=== PATIENT | female | born 1995 | race Two or more races ===

== ENCOUNTER 2024-08-21 12:30 | Inpatient (IN) | payer MEDICAID ==
[~2024-08-21] VITALS: Ht 152.4 cm; Wt 60.0 kg
--- NOTE | 2024-08-21 12:44 | ED.PDOC ---
History of Present Illness HPI Comments 29-year-old female presents with a chief complaint of headache and back pain x 1 hour. Patient states that she is having a diffuse, 10/10 sharp headache. Patient mentions she was just at [facility] and was diagnosed with "mini strokes". Patient reports that "I had an MRI and they found mini strokes all over". Patient is inconsolable in triage and crying holding her head. Patient mentions that she was prescribed Prednisone and Aspirin after being discharged from [facility]. Time Seen by MD: 12:36 Reviewed Notes: Medications, Allergies Allergies: Coded Allergies: NO KNOWN ALLERGIES (Unverified , 08/21/24) Information Source: Patient Mode of Arrival: Ambulatory Severity: Moderate Timing: Hours Duration: Since onset Prehospital treatment: None Past Medical History PAST MEDICAL HISTORY: TIA Surgical History: Denies all surgeries [employer] CENTER [employer]CHITECT History: Denies all [employer] C[employer]CHITECT Hx Family History Family History: Reviewed,noncontributory to illness Social History Smoker: Non-Smoker Alcohol: Denies ETOH Use Drugs: Denies Drug Use Lives In: Home Constitutional: denies: chills, diaphoresis, fatigue, fever, malaise, sweats, weakness, others EENTM: denies: blurred vision, double vision, ear bleeding, ear discharge, ear drainage, ear pain, ear ringing, eye pain, eye redness, hearing loss, mouth pain, mouth swelling, nasal discharge, nose bleeding, nose congestion, nose pain, photophobia, tearing, throat pain, throat swelling, voice changes, others Respiratory: denies: cough, hemoptysis, orthopnea, SOB at rest, shortness of breath, SOB with excertion, stridor, wheezing, others Cardiovascular: denies: chest pain, dizzy spells, diaphoresis, Dyspnea on exertion, edema, irregular heart beat, left arm pain, lightheadedness, palpitations, PND, syncope, others Gastrointestinal: denies: abdomen distended, abdominal pain, blood streaked bowels, constipated, diarrhea, dysphagia, difficulty swallowing, hematemesis, melena, nausea, poor appetite, poor fluid intake, rectal bleeding, rectal pain, vomiting, others Genitourinary: denies: abnormal vagina bleeding, burning, dyspareunia, dysuria, flank pain, frequency, hematuria, incontinence, pain, , vagina discharge, urgency, others Neurological: reports: headache; denies: dizziness, fainting, left sided numbness, left sided weakness, numbness, paresthesia, pre-existing deficit, right sided numbness, right sided weakness, seizure, speech problems, tingling, tremors, weakness, others Musculoskeletal: reports: back pain; denies: gout, joint pain, joint swelling, muscle pain, muscle stiffness, neck pain, others Integumetry: denies: bruises, change in color, change in hair/nails, dryness, laceration, lesions, lumps, rash, wounds, others Allergic/Immunocompromised: denies: Difficulty Healing, Frequent Infections, Hives, Itching, others Hematologic/Lymphatic: denies: anemia, blood clots, easy bleeding, easy bruising, swollen glands, others Endocrine: denies: excessive hunger, excessive sweating, excessive thirst, excessive urination, flushing, intolerance to cold, intolerance to heat, unexplained weight gain, unexplained weight loss, others Psychiatric: denies: anxiety, bipolar disorder, depression, hopeless, panic disorder, schizophrenia, sleepless, suicidal, others All Other Systems: Reviewed and Negative Physical Exam General Appearance: No Apparent Distress, Normal HEENT: Normal ENT Inspection, Pharynx Normal, TMs Normal Neck: Full Range of Motion, Non-Tender, Normal, Normal Inspection Respiratory: Chest Non-Tender, Lungs Clear, No Accessory Muscle Use, No Respiratory Distress, Normal Breath Sounds Cardiovascular: No Edema, No JVD, No Murmur, No Gallop, Normal Peripheral Pulses, Regular Rate/Rhythm Breast Exam: Deferred Gastrointestinal: No Organomegaly, Non Tender, No Pulsatile Mass, Normal Bowel Sounds, Soft Genitalia: Deferred Pelvic: Deferred Rectal: Deferred Extremities: No calf tenderness, Normal capillary refill, Normal inspection, Normal range of motion, Non-tender, No pedal edema Musculoskeletal : Apperance: Normal Neurologic: Alert, collection correspondent II-XII nml as Tested, No Motor Deficits, Normal Affect, Normal Mood, No Sensory Deficits Cerebellar Function: Normal Reflexes: Normal Skin: Dry, Normal Color, Warm Lymphatic: No Adenopathy Was a procedure done? Was a procedure done?: No Differential Dx Considerations may include: CVA, TIA, migraine, spinal epidural abscess, viral syndrome, electrolyte abnormality X-Ray, Labs, Meds, VS Vital Signs Date Time Temp Pulse Resp B/P (MAP) Pulse Ox O2 Delivery O2 Flow Rate FiO2 08/21/24 16:00 118 08/21/24 15:46 112 27 163/101 (121) 95 08/21/24 14:50 109 22 95 Room Air* 0 21 08/21/24 14:46 105 19 119/76 (90) 96 08/21/24 13:25 96 17 158/95 (116) 96 08/21/24 13:10 91 08/21/24 12:39 68 08/21/24 12:36 98.2 70 24 186/133 (150) 100 Lab Test 08/21/24 14:32 08/21/24 13:00 Range/Units Urine Color Light-yellow Yellow Urine Clarity Clear Clear Urine pH 6.5 5.0-9.0 Urine Specific [place] 1.015 1.001-1.035 Urine Protein 1+ H Negative Urine Ketones Negative Negative Urine Blood 2+ H Negative /uL Urine Nitrite Negative Negative Urine Bilirubin Negative Negative Urine Urobilinogen Normal Negative mg/dL Urine Leukocyte Esterase Negative Negative /uL Urine RBC 49 0 - 4 /hpf Urine Microscopic WBC 4 0-5 /HPF Urine Squamous Epithelial Cells Few <5 /hpf Urine Bacteria None seen None Seen /hpf Urine Mucus Few None Seen Urine Glucose Normal Normal mg/dL Urine Opiates Screen Pos NEGATIVE Urine Fentanyl Screen Neg NEGATIVE Urine Barbiturates Screen Neg NEGATIVE Urine Phencyclidine Screen Neg NEGATIVE Urine Amphetamines Screen Neg NEGATIVE Urine Benzodiazepines Screen Neg NEGATIVE Urine Cocaine Screen Neg NEGATIVE Urine Cannabinoids Screen Pos NEGATIVE White Blood Count 17.3 H 4.4-10.8 10^3/uL Red Blood Count 4.56 4.0-5.20 10^6/uL Hemoglobin 11.7 L 12.2-16.2 g/dL Hematocrit 36.1 36.0-46.0 % Mean Corpuscular Volume 79.3 L 80.0-100.0 fL Mean Corpuscular Hemoglobin 25.6 L 28.0-32.0 pg Mean Corpuscular Hemoglobin Concent 32.3 32.0-36.0 g/dL Red Cell Distribution Width 17.9 H 11.8-14.3 % Platelet Count 547 H 140-450 10^3/uL Mean Platelet Volume 8.0 6.9-10.8 fL Neutrophils (%) (Auto) 83.2 H 37.0-80.0 % Lymphocytes (%) (Auto) 10.7 10.0-50.0 % Monocytes (%) (Auto) 6.0 0.0-12.0 % Eosinophils (%) (Auto) 0.0 0.0-7.0 % Basophils (%) (Auto) 0.1 0.0-2.0 % Neutrophils # (Auto) 14.3 H 1.6-8.6 10 ^3/uL Lymphocytes # (Auto) 1.9 0.4-5.4 10 ^3/uL Monocytes # (Auto) 1.0 0-1.3 10 ^3/uL Eosinophils # (Auto) 0 0-0.8 10 ^3/uL Basophils # (Auto) 0 0-0.2 10 ^3/uL Nucleated Red Blood Cells 0.0 % Sodium Level 136 136-145 mmol/L Potassium Level 3.5 3.5-5.1 mmol/L Chloride Level 102 98-107 mmol/L Carbon Dioxide Level 24 20-31 mmol/L Anion Gap 10 5-15 Blood Urea Nitrogen 15 9-23 mg/dL Creatinine 0.62 0.550-1.02 mg/dL Glomerular Filtration Rate Calc 123 >90 mL/min BUN/Creatinine Ratio 24.2 H 10.0-20.0 Serum Glucose 130 H 74-106 mg/dL Calcium Level 8.9 8.7-10.4 mg/dL Current Medications Medications (Trade) Dose Ordered Sig/Osiris Route Start Time Stop Time Status Last Admin Sodium Chloride 1,000 ml @ 1,000 mls/hr Q1H ONCE IV 08/21/24 12:45 08/21/24 13:44 DC 08/21/24 13:02 Metoclopramide HCl (Reglan Injection) 10 mg ONCE ONCE IV 08/21/24 12:45 08/21/24 12:46 DC 08/21/24 13:01 Acetaminophen (Tylenol Tablet) 650 mg ONCE ONCE PO 08/21/24 12:45 08/21/24 12:46 DC 08/21/24 13:01 Haloperidol Lactate (Haldol) 10 mg ONCE ONCE IM 08/21/24 12:45 08/21/24 12:46 DC 08/21/24 13:02 Ketorolac Tromethamine (Toradol Injection) 15 mg ONCE ONCE IV 08/21/24 14:00 08/21/24 14:01 DC 08/21/24 14:00 Ketamine HCl (Ketalar) 100 mg ONCE ONCE IV 08/21/24 16:00 08/21/24 16:13 DC 08/21/24 16:30 Time of 1ST Reevaluation: 13:06 Reevaluation 1ST: Unchanged Patient Education/Counseling: Diagnosis, Treatment, Prognosis Family Education/Counseling: Diagnosis, Treatment, Prognosis Departure 1 Departure Time of Disposition: 16:39 (Patient with intractable migraine concerning for status migrainous patient also with intractable back pain. We will admit patient for further workup and expert consultation) Impression: Primary Impression: Migraine with status migrainosus Qualified Codes: G43.111 - Migraine with aura, intractable, with status migrainosus Additional Impression: Lower back pain Qualified Codes: M54.50 - Low back pain, unspecified Disposition: 09 ADMITTED INPATIENT Admit to: Med Surg Condition: Serious Critical Care Note Critical Care Time?: Yes Critical care comment: Status migrainous Authorized and Performed by: Edgar Suarez MD Total critical care time: Approximately 36 minutes Due to a high probability of clinically significant, life threatening deterioration, the patient required my highest level of preparedness to int ervene emergently and I personally spent this critical care time directly and personally managing the patient. This critical care time included obtaining a history; examining the patient; pulse oximetry; ordering and review of studies; arranging urgent treatment with development of a management plan; evaluation of patient's response to treatment; frequent reassessment; and, discussions with other providers. This critical care time was performed to assess and manage the high probability of imminent, life-threatening deterioration that could result in multi-organ failure. It was exclusive of separately billable procedures and treating other patients and teaching time. Please see my other sections and the rest of the note for further information on patient assessment and treatment. Stability Stability form required: No Heart Score Heart Score: Heart Score Response (Comments) Value History N/A 0 EKG N/A 0 Age N/A 0 Risk Factors N/A 0 Troponin N/A 0 Total 0 I personally scribed for EDGAR SUAREZ MD ([email or web address]) on 08/21/24 at 12:44. E lectronically submitted by Michael Lynn ([email or web address]). EDGAR SUAREZ MD Aug 21, 2024 12:44
[2024-08-21] MEDS: METOCLOPRAMIDE HCL 5MG/ml INJ 2ml VIAL IV ONE (13:01)
[2024-08-21] MEDS: ACETAMINOPHEN 325 MG TAB PO ONE (13:01)
[2024-08-21] MEDS: SODIUM CHLORIDE 0.9% 1,000 ML IV ONE ×2 (13:02→17:59)
[2024-08-21] MEDS: HALOPERIDOL LACTATE 5 MG/ML INJ VIAL IM ONE (13:02)
--- NOTE | 2024-08-21 13:07 | DVH ---
CLINICAL INFORMATION: 29 years old, Female; sudden onset headache and migraine. TECHNIQUE: Axial imaging was obtained through the brain without contrast. Coronal and sagittal refor matted images were obtained, reviewed, and stored. Images were reviewed in brain and bone windows. A ll CT scans at this medical facility are performed using dose modulation techniques as appropriate to a performed exam including the following: Automated exposure control was utilized; adjustment of the MA and/or KV according to patient size; and use of iterative reconstruction technique. CTDIvol = 52.02 mGy DLP = 816.82 mGy-cm COMPARISON: None FINDINGS: There is no acute intracranial hemorrhage or extraaxial fluid collection. No mass effect o r midline shift. The ventricles and sulci are within normal limits in size for age. Basal cisterns a re patent. The calvarium is unremarkable. Paranasal sinuses and mastoid air cells are clear. IMPRESSION: No CT evidence of acute intracranial abnormality.
[2024-08-21 13:16] LABS: Basophils # (auto) 0 10 ^3/uL (0-0.2); Basophils % (auto) 0.1 % (0.0-2.0); Eosinophils # (auto) 0 10 ^3/uL (0-0.8); Hemoglobin 11.7 g/dL (12.2-16.2)
[2024-08-21 13:19] LABS: Hematocrit 36.1 % (36.0-46.0); Lymphocytes # (auto) 1.9 10 ^3/uL (0.4-5.4); Lymphocytes % (auto) 10.7 % (10.0-50.0); Mean Corpuscular Hemoglobin 25.6 pg (28.0-32.0); Mean Corpuscular Hgb Conc. 32.3 g/dL (32.0-36.0); Mean Corpuscular Volume 79.3 fL (80.0-100.0); Neutrophils # (auto) 14.3 10 ^3/uL (1.6-8.6); Neutrophils % (auto) 83.2 % (37.0-80.0); Platelet Count (auto) 547 10^3/uL (140-450); Red Blood Cells 4.56 10^6/uL (4.0-5.20); Red Cell Distribution Width 17.9 % (11.8-14.3); White Blood Cell 17.3 10^3/uL (4.4-10.8)
[2024-08-21 13:33] LABS: Chloride 102 mmol/L (98-107); Potassium 3.5 mmol/L (3.5-5.1); Sodium 136 mmol/L (136-145)
[2024-08-21 13:34] LABS: Anion Gap 10 (5-15); Calcium 8.9 mg/dL (8.7-10.4); Carbon Dioxide 24 mmol/L (20-31)
[2024-08-21 13:39] LABS: BUN/Creatinine Ratio 24.2 (10.0-20.0); Blood Urea Nitrogen 15 mg/dL (9-23)
[2024-08-21 13:41] LABS: Glucose 130 mg/dL (74-106)
[2024-08-21] MEDS: KETOROLAC TROMETH 30 MG/ML 1ML VIAL IV ONE (14:00)
[2024-08-21 14:50] VITALS: PULSE 109; RESP 22; O2SAT 95
[2024-08-21 14:51] LABS: Urine Bacteria None Seen /hpf (None Seen)
[2024-08-21 15:10] LABS: Urine Blood 2+ /uL (Negative); Urine Clarity Clear (Clear); Urine Color Light-Yellow (Yellow); Urine Mucus FEW (None Seen); Urine Protein, UAD 1+ (Negative); Urine Specific Gravity 1.015 (1.001-1.035); Urine Squamous Epithelial Cell FEW /hpf (<5); Urine Urobilinogen Normal (Negative); Urine WBC 4 /HPF (0-5); Urine pH 6.5 (5.0-9.0)
[2024-08-21 15:24] LABS: Amphetamine Screen, Urine Neg (NEGATIVE); Barbiturate Scree,Urine Neg (NEGATIVE); Benzodiazephine Screen, Urine Neg (NEGATIVE); Cannabinoid Screen, Urine Pos (NEGATIVE); Cocaine Screen, Urine Neg (NEGATIVE); Opiate Scree,Urine Pos (NEGATIVE); Phencyclidine Screen, Urine Neg (NEGATIVE)
[2024-08-21] MEDS: KETAMINE 50mg/ML 10ml Vial (500mg/10ml) IV ONE (16:30)
[2024-08-21] MEDS: CEFEPIME 2GM/50ML NS 50 ML IV ONE (18:24)
--- NOTE | 2024-08-21 18:24 | DVH ---
Date: 08/21/2024 06:02 PM Examination: XY KUB ABDOMEN SINGLE VIEW History: abdominal pain Comparison: None TECHNIQUE: Frontal views of the abdomen was obtained. FINDINGS: No evidence for obstruction. Patient has a moderately large stool burden.. The lung bases are unremarkable. No acute osseous abnormality identified. IMPRESSION: 1. Moderately large stool burden. No osseous abnormality
[2024-08-21 19:12] LABS: Lactic Acid w/Reflex 4.4 mmol/L (0.4-2.0)
[2024-08-21] MEDS: VANCOMYCIN 1GM/250ML KIT 200 ML IV ONE (19:26)
[2024-08-21 19:30] VITALS: PULSE 90; RESP 18; O2SAT 95
[2024-08-21] MEDS ORDERED: NITROGLYCERIN 0.4 MG SL TAB SL PRN (21:30)
[2024-08-21] MEDS ORDERED: ACETAMINOPHEN 325 MG TAB PO PRN (21:30)
[2024-08-21 21:44] LABS: Basophils % (auto) 0.2 % (0.0-2.0); Eosinophils # (auto) 0 10 ^3/uL (0-0.8); Lymphocytes # (auto) 2.8 10 ^3/uL (0.4-5.4); Neutrophils # (auto) 18.8 10 ^3/uL (1.6-8.6)
[2024-08-21 21:46] LABS: Basophils # (auto) 0.1 10 ^3/uL (0-0.2); Hematocrit 34.5 % (36.0-46.0); Hemoglobin 10.9 g/dL (12.2-16.2); Lymphocytes % (auto) 11.9 % (10.0-50.0); Mean Corpuscular Hgb Conc. 31.5 g/dL (32.0-36.0); Mean Corpuscular Volume 79.1 fL (80.0-100.0); Monocytes # (auto) 1.8 10 ^3/uL (0-1.3); Monocytes % (auto) 7.7 % (0.0-12.0); Neutrophils % (auto) 80.2 % (37.0-80.0); Platelet Count (auto) 498 10^3/uL (140-450); Red Blood Cells 4.35 10^6/uL (4.0-5.20); Red Cell Distribution Width 17.8 % (11.8-14.3); White Blood Cell 23.4 10^3/uL (4.4-10.8)
[2024-08-21] MEDS: SODIUM CHLORIDE 0.9% 1,000 ML IV SCH (22:00)
[2024-08-21 22:01] LABS: Alanine Aminotransferase 32 U/L (7-40); Albumin 3.4 g/dL (3.2-4.8); Alkaline Phosphatase 64 U/L (46-116); Anion Gap 9 (5-15); Aspartate Aminotransferase 37 U/L (13-40); BUN/Creatinine Ratio 23.4 (10.0-20.0); Blood Urea Nitrogen 15 mg/dL (9-23); Carbon Dioxide 24 mmol/L (20-31); Chloride 104 mmol/L (98-107); Magnesium 1.7 mg/dL (1.6-2.6); Potassium 3.9 mmol/L (3.5-5.1); Sodium 137 mmol/L (136-145)
[2024-08-21 22:02] LABS: Bilirubin, Total 0.3 mg/dL (0.2-1.0); Total Protein 6.8 g/dL (5.7-8.2)
[2024-08-21 22:04] LABS: Blood Alcohol < 3.0 mg/dL (<10); Creatine Kinase IFCC 233 U/L (34-145); Glucose 160 mg/dL (74-106)
[2024-08-21] MEDS: SODIUM CHLOR 0.9% PF (SALINE LOCK) 10ML VIAL/SYR IV SCH (22:05)
[2024-08-21] MEDS ORDERED: hydrALAZINE HCL 20 MG/ML VL IV PRN (23:30)
[2024-08-21] MEDS: hydrALAZINE HCL 20 MG/ML VL IV ONE (23:31)
--- NOTE | 2024-08-21 23:47 | DVHHPRES ---
History of Present Illness Resident Creating Document: LEIGHA CHOI RESIDENT History of Present Illness BEREKET RAYMUNDO is a 29 years old female with a PMH of lupus presented to the ED with the chief complaints of severe headache since today morning. Patient reported she is diagnosed with lupus in 2019, she was not on medication last year and restarted her medication in May. Last week patient went to other facility due to headache, did a MRI found it multiple mini strokes, started on aspirin, clopidogrel and Lipitor. On Wednesday patient woke up with severe back pain, unable to sit or stand which made her to visit [facility] ED MRI of the spine which found it having bulging disc or cyst and urinalysis was positive for UTI, given cephalexin. Again today moaning patient started having severe headache described as drooling sensation into the brain or skull associated with mild vomiting lightheadedness which brought her to visit ED. on my assessment patient is very drowsy, sleeping due to medication. PMH: Lupus since 2019 PSH: Denies Family history: Noncontributory Social history: Lives with grandparents. Smokes marijuana for pain management but denies alcohol and other illicit drug abuse Medications: Prednisolone, hydrocodone, aspirin, clopidogrel, pantoprazole, atorvastatin Allergies: No known allergies Review of Systems Constitutional: Yes: Weakness, Malaise, Other (Headache) Eyes: No: Pain, Vision change, Conjunctivae inflammation, Eyelid inflammation, Other, Redness ENT: No: Ear pain, Ear discharge, Nose pain, Nose discharge, Nose congestion, Mouth pain, Mouth swelling, Throat pain, Throat swelling, Other Respiratory: No: Cough, Dry, Shortness of breath, SOB with excertion, Wheezing, Hemoptysis, Pleuritic Pain, Sputum, Wheezing, Other Cardiovascular: Lt Headedness Gastrointestinal: No: Nausea, Vomiting, Abdominal Pain, Diarrhea, Constipation, Melena, Hematochezia, Other Genitourinary: No Dysuria, No Frequency, No Incontinence, No Hematuria, No Retention, No Other Musculoskeletal: back pain Neurological: No: Weakness, Numbness, Incoordination, Change in speech, Confusion, Seizures, Other Allergies: Coded Allergies: NO KNOWN ALLERGIES (Unverified , 08/21/24) Medications Current Medications Medications Dose Ordered Sig/Osiris Route Start Time Stop Time Status Last Admin Dose Admin Sodium Chloride 10 ml Q8HR IV 08/21/24 22:00 08/21/24 22:05 10 ML Sodium Chloride 1,000 ml @ 120 mls/hr Q8H20M IV 08/21/24 21:30 08/21/24 22:00 120 MLS/HR Enoxaparin Sodium 40 mg DAILY SC 08/22/24 10:00 Acetaminophen 650 mg Q6HP PRN PO 08/21/24 21:30 Nitroglycerin 0.4 mg Q5MINP PRN SL 08/21/24 21:30 Morphine Sulfate 2 mg Q30M PRN IV 08/21/24 21:30 Hydralazine HCl 10 mg Q6HP PRN IV 08/21/24 23:30 UNV Acetaminophen/ Hydrocodone Bitart 1 tab Q4HPRN PRN PO 08/21/24 23:45 UNV Ceftriaxone Sodium 50 ml @ 100 mls/hr DAILY@09 IV 08/22/24 09:00 UNV Exam Vital Signs Vital Signs Date Time Temp Pulse Resp B/P (MAP) Pulse Ox O2 Delivery O2 Flow Rate FiO2 08/21/24 23:31 158/93 08/21/24 22:00 94 24 94 08/21/24 19:30 Nasal Cannula* 2 28 08/21/24 19:30 98.6 98.6 Exam Pt is lying on bed General Appearance: Alert, Oriented X3, Cooperative, severe distress HEENT: Atraumatic, Mucous membranes moist/pink Respiratory: Clear to auscultation, Normal air movement, No added sounds Cardiovascular: Regular rate, Normal S1, Normal S2, No murmurs Abdominal: Active bowel sounds, Soft, no distention, no tenderness Extremities: No edema, Normal pulses, No tenderness/swelling MSK: Spinal tenderness, hand joints redness Skin: No Significant rash, except past surgical scars Neuro: Normal speech, sensorimotor deficits none Psych/Mental Status: Mental status NL, Mood NL Nurse was there as sharperone during examination Labs/Xrays Labs Test 08/21/24 22:50 08/21/24 21:29 08/21/24 19:44 08/21/24 14:32 Range/Units White Blood Count 23.4 #H 4.4-10.8 10^3/uL Red Blood Count 4.35 4.0-5.20 10^6/uL Hemoglobin 10.9 L 12.2-16.2 g/dL Hematocrit 34.5 L 36.0-46.0 % Mean Corpuscular Volume 79.1 L 80.0-100.0 fL Mean Corpuscular Hemoglobin 25.0 L 28.0-32.0 pg Mean Corpuscular Hemoglobin Concent 31.5 L 32.0-36.0 g/dL Red Cell Distribution Width 17.8 H 11.8-14.3 % Platelet Count 498 H 140-450 10^3/uL Mean Platelet Volume 7.9 6.9-10.8 fL Neutrophils (%) (Auto) 80.2 H 37.0-80.0 % Lymphocytes (%) (Auto) 11.9 10.0-50.0 % Monocytes (%) (Auto) 7.7 0.0-12.0 % Eosinophils (%) (Auto) 0.0 0.0-7.0 % Basophils (%) (Auto) 0.2 0.0-2.0 % Neutrophils # (Auto) 18.8 H 1.6-8.6 10 ^3/uL Lymphocytes # (Auto) 2.8 0.4-5.4 10 ^3/uL Monocytes # (Auto) 1.8 H 0-1.3 10 ^3/uL Eosinophils # (Auto) 0 0-0.8 10 ^3/uL Basophils # (Auto) 0.1 0-0.2 10 ^3/uL Nucleated Red Blood Cells 0.0 % Sodium Level 137 136-145 mmol/L Potassium Level 3.9 3.5-5.1 mmol/L Chloride Level 104 98-107 mmol/L Carbon Dioxide Level 24 20-31 mmol/L Anion Gap 9 5-15 Blood Urea Nitrogen 15 9-23 mg/dL Creatinine 0.64 0.550-1.02 mg/dL Glomerular Filtration Rate Calc 122 >90 mL/min BUN/Creatinine Ratio 23.4 H 10.0-20.0 Serum Glucose 160 H 74-106 mg/dL Calcium Level 8.0 L 8.7-10.4 mg/dL Magnesium Level 1.7 1.6-2.6 mg/dL Total Bilirubin 0.3 0.2-1.0 mg/dL Aspartate Amino Transferase (AST) 37 13-40 U/L Alanine Aminotransferase (ALT) 32 7-40 U/L Alkaline Phosphatase 64 46-116 U/L Ammonia 15 11-32 umol/L Creatine Kinase 233 H 34-145 U/L C-Reactive Protein High Sensitivity 0.68 <1.0 mg/dL Total Protein 6.8 5.7-8.2 g/dL Albumin 3.4 3.2-4.8 g/dL Thyroid Stimulating Hormone (TSH) 0.75 0.55-4.78 uIU/mL Plasma/Serum Blood Alcohol < 3.0 <10 mg/dL Lactic Acid Level 4.5 *H 0.4-2.0 mmol/L Urine Color Light-yellow Yellow Urine Clarity Clear Clear Urine pH 6.5 5.0-9.0 Urine Specific [place] 1.015 1.001-1.035 Urine Protein 1+ H Negative Urine Ketones Negative Negative Urine Blood 2+ H Negative /uL Urine Nitrite Negative Negative Urine Bilirubin Negative Negative Urine Urobilinogen Normal Negative mg/dL Urine Leukocyte Esterase Negative Negative /uL Urine RBC 49 0 - 4 /hpf Urine Microscopic WBC 4 0-5 /HPF Urine Squamous Epithelial Cells Few <5 /hpf Urine Bacteria None seen None Seen /hpf Urine Mucus Few None Seen Urine Glucose Normal Normal mg/dL Urine Opiates Screen Pos NEGATIVE Urine Fentanyl Screen Neg NEGATIVE Urine Barbiturates Screen Neg NEGATIVE Urine Phencyclidine Screen Neg NEGATIVE Urine Amphetamines Screen Neg NEGATIVE Urine Benzodiazepines Screen Neg NEGATIVE Urine Cocaine Screen Neg NEGATIVE Urine Cannabinoids Screen Pos NEGATIVE Test 08/21/24 13:00 Range/Units Assessment/Plan Assessment/Plan # Sepsis likely due to UTI vs ? meningitis -ordered pancultures -monitor lab -currently giving Rocephin 2 g q.12, ampicillin 2gm q4 h and vancomycin per pharmacy -Dexamethasone 10 mg iv q6 # R/o Meningitis -performed lumbar puncture -fluid sent to cell count and culture -currently giving Rocephin 2 g q.12, ampicillin 2gm q4 h and vancomycin per pharmacy -Dexamethasone 10 mg iv q6 -Consulted neuro # hypertensive emergency vs urgency # rule out acute CVA -head CT showed no acute changes -closely monitoring blood pressure -hydralazine 10 mg -ordered brain MRI -consulted neuro # lupus likely exacerbation - On hydroxychloroquine # marijuana abuse disorder -counseled regarding cessation for more than 17 minutes # likely bulging spinal disc unspecified location -pain management # acute complicated UTI -Rocephin -ordered pancultures # questionable rhabdomyolysis -monitoring lab -currently giving IVF -monitor renal function closely PUD PPX: Protonix VTE PPX: Lovenox Diet: Salt restricted diet Goals of care discussed with the patient for more than 29 minutes: Full code st atus Case discussed with Dr. Blankenship, patient and nurse. Plan discussed with: Patient, Other (Boyfriend) My Orders Orders - LEIGHA CHOI RESIDENT Procedure Category Date Status Time Admit ADMIT 08/21/24 Transmitted 21:19 Allergies SHRUTHI 08/21/24 In Process 21:19 Code Status CODE 08/21/24 Transmitted 21:19 Sodium Chloride Lock PHA 08/21/24 In Process (Saline Lock Ns) 22:00 Sodium Chloride 0.9% PHA 08/21/24 In Process 21:30 Oxygen Per Hour RT 08/21/24 Transmitted 21:19 Enoxaparin Sodium PHA 08/22/24 In Process (Lovenox) 10:00 Complete Blood Count LAB 08/22/24 Verified 04:00 Comprehensive LAB 08/22/24 Verified Metabolic Panel 04:00 Npo (Nothing By DIET 08/22/24 Transmitted Mouth) Diet Breakfast Condition: Fair SHRUTHI 08/21/24 In Process 21:19 Acetaminophen Tablet PHA 08/21/24 In Process (Tylenol Tablet) 21:30 Nitroglycerin PHA 08/21/24 In Process Sublingual (Ntrostat 21:30 Morphine Sulfate PHA 08/21/24 In Process Injection 21:30 Oxygen By Nasal RT 08/21/24 Transmitted Cannula 21:19 Stat Ekg For Chest SHRUTHI 08/21/24 In Process Pain 21:19 Notify Of Changes SHRUTHI 08/21/24 In Process From Base 21:19 Forge Hand For SHRUTHI 08/21/24 In Process 24 Hours 21:19 Emergency Dysrhythmia SHRUTHI 08/21/24 In Process Protocol 21:19 Rhythm Strips Once SHRUTHI 08/21/24 In Process Every Shift 21:19 Covid19 Antigen Carmela LAB 08/21/24 In Process Rapid Influenza A&B LAB 08/21/24 In Process 21:21 Urine Bacterial TERA 08/21/24 In Process Culture 21:24 Respiratory Culture TERA 08/21/24 Logged W/ Gs 21:24 Erythrocyte LAB 08/21/24 In Process Sedimentation Rate 22:45 Hydralazine Injection PHA 08/21/24 Logged (Apresoline Inject 23:30 Hydrocodone-Acet PHA 08/21/24 Logged 5/325mg Tab ([place] 23:45 Ceftriaxone 1gm/50ml PHA 08/22/24 Logged D5w (Rocephin) 09:00 2 Gm Sodium Diet DIET 08/22/24 Verified Breakfast Date of Service: Aug 21, 2024 Billing Provider: LATESHA BLANKENSHIP MD Common Visit Codes: [id number] INP/OBS CARE (HIGH) LEIGHA CHOI RESIDENT Aug 21, 2024 23:47 LATESHA BLANKENSHIP MD Aug 22, 2024 19:56
[2024-08-21 23:59] LABS: Rapid Influenza A Negative (Negative); Rapid Influenza B Negative (Negative)
[2024-08-21] MEDS: MORPHINE SULFATE INJ 2 MG/ml SYRG IV PRN (23:59)
[2024-08-22] LABS: COVID19 ANTIGEN SOFIA FIA NEGATIVE (NEGATIVE)
[2024-08-22 00:03] LABS: Erythrocyte Sedimentation Rate 24 mm/hr (0-20)
[2024-08-22] MEDS: LABETALOL HCL 20 MG/4 ML VL IV ONE (00:59)
[2024-08-22 02:41] LABS: Hemoglobin 10.2 g/dL (12.2-16.2); Mean Corpuscular Hemoglobin 25.2 pg (28.0-32.0); Mean Corpuscular Volume 78.6 fL (80.0-100.0); Platelet Count (auto) 571 10^3/uL (140-450); Red Blood Cells 4.06 10^6/uL (4.0-5.20); White Blood Cell 26.7 10^3/uL (4.4-10.8)
[2024-08-22 02:42] LABS: Basophils % (manual) 0 (0.0-2.0); Blast Cells 0; Eosinophils % (manual) 0 (0-7); Metamyelocytes % 0; Myelocytes % 0; Promyelocytes % 0; Reactive Lymphocytes 0
[2024-08-22 02:55] LABS: INR 1.05 (0.9-1.15); Partial Thromboplastin Time 25.5 SEC (24.5-34.5); Prothrombin Time 11.1 sec (9.3-11.8)
[2024-08-22 03:15] LABS: Alanine Aminotransferase 29 U/L (7-40); Alkaline Phosphatase 63 U/L (46-116); Anion Gap 12 (5-15); Aspartate Aminotransferase 34 U/L (13-40); BUN/Creatinine Ratio 23.3 (10.0-20.0); Blood Urea Nitrogen 14 mg/dL (9-23); Carbon Dioxide 21 mmol/L (20-31); Chloride 104 mmol/L (98-107); Potassium 3.6 mmol/L (3.5-5.1); Sodium 137 mmol/L (136-145)
[2024-08-22 03:16] LABS: Albumin 3.4 g/dL (3.2-4.8); Bilirubin, Total 0.3 mg/dL (0.2-1.0); Calcium 7.8 mg/dL (8.7-10.4); Glucose 163 mg/dL (74-106); Total Protein 6.7 g/dL (5.7-8.2)
[2024-08-22 03:25] LABS: CRP High Sensitivity 1.73 mg/dL (<1.0)
[2024-08-22 03:30] LABS: Band Neutrophils % (manual) 1; Lymphocytes % (manual) 13 (10.0-50.0); Monocytes % (manual) 8 (0-12); Platelet Estimate Increased
[2024-08-22 03:31] LABS: Large Platelets FEW
[2024-08-22 03:39] LABS: Erythrocyte Sedimentation Rate 25 mm/hr (0-20)
[2024-08-22] MEDS ORDERED: VANCOMYCIN PER PHARMACY 0 MG IV SCH (05:15)
[2024-08-22] MEDS: cefTRIAXone 2GM/50ML D5W 50 ML IV SCH (05:21)
[2024-08-22] MEDS: DexAMETHasone SOD PHOS 10MG/1ML VIAL INJ IV SCH (06:52)
[2024-08-22 06:56] LABS: CSF White Blood Cells 750 CUMM (0-5); Description,CSF BLOODY
[2024-08-22 07:50] VITALS: PULSE 132; RESP 42; O2SAT 93
[2024-08-22] MEDS: AMPICILLIN SOD 2GM INJ 2 GM in SODIUM CHL 0.9% 100 ML IV SCH (08:25)
[2024-08-22] MEDS ORDERED: cefTRIAXone 1GM/50ML D5W 50 ML IV SCH (09:00)
[2024-08-22 09:17] LABS: Basophils # (auto) 0.1 10 ^3/uL (0-0.2); Eosinophils # (auto) 0 10 ^3/uL (0-0.8); Hemoglobin 11.7 g/dL (12.2-16.2); Monocytes # (auto) 0.7 10 ^3/uL (0-1.3)
[2024-08-22 09:18] LABS: Basophils % (auto) 0.5 % (0.0-2.0); Eosinophils % (auto) 0.1 % (0.0-7.0); Hematocrit 36.7 % (36.0-46.0); Lymphocytes # (auto) 1.4 10 ^3/uL (0.4-5.4); Lymphocytes % (auto) 5.8 % (10.0-50.0); Mean Corpuscular Hemoglobin 24.9 pg (28.0-32.0); Mean Corpuscular Hgb Conc. 31.7 g/dL (32.0-36.0); Mean Corpuscular Volume 78.4 fL (80.0-100.0); Monocytes % (auto) 2.8 % (0.0-12.0); Neutrophils # (auto) 21.2 10 ^3/uL (1.6-8.6); Neutrophils % (auto) 90.8 % (37.0-80.0); Platelet Count (auto) 569 10^3/uL (140-450); Red Blood Cells 4.69 10^6/uL (4.0-5.20); White Blood Cell 23.4 10^3/uL (4.4-10.8)
--- NOTE | 2024-08-22 09:32 | DVHINCON2 ---
Date of service: Aug 22, [address] Chowdary Reason for Consultation Altered, stiff neck, lupus flare versus meningitis History of Present Illness Ms. Ernandez is a 29 years old right-handed female with a history of lupus, he was brought to the [facility] on 08/21/2024 with a chief company of intense headache. At this time, she was awake, oriented to person, place, she knows year, but is not cooperative with me. The history is obtained from her, her boyfriend, nurse and chart review The patient was headache from time to time, but in the last three weeks, she was bad fluctuating headache, especially on 08/21/2024, the pain intensity was 10/10, and she cried. According to her boyfriend, the patient did not have chills, fever, weight changes, and she was mentally fine at that time when he left the emergency room yesterday. She was stuporous, and diffuse body pain, she was on 5-6 medications, but, because of finance reason, she has been off lupus treatment for about one year, she uses THC marijuana for her body pain For about three months, the patient was has been hospitalized intermittently because of her lupus flaring up. He was discharged from [facility] last week, and she was caught to returned to the hospital because her MR brain scan showed a small stroke CSF profile, 08/22/2024: Bloody, RBC: 684810, WBC: 750, loree: 24%, poly: 76%, protein: 2072.4 UDS, 08/21/2024: Opiates, cannabinoids, Plasma alcohol, 08/21/2024: <3 Urinalysis, 08/21/2024: WBC: Four, urine leukocyte esterase: Negative WBC/HB/PLT/MCV, 08/22/2024: 26.7/10.2/571/78.6 ESR, 08/21/2024: 24, 08/22/2024: 25 CMP, 08/22/2024: Unremarkable CRP, 08/21/2024: 0.68, 08/22/2024: 1.73 TSH, 08/21/2024: 0.75 CT head, 08/21/2024: No CT evidence of acute intracranial abnormality Past Medical History Lupus, stroke Past Surgical History No major surgery Family History Hypertension stroke Social History She was no history of tobacco smoke, but uses THC marijuana, no history of drug or alcohol use Allergies: Coded Allergies: NO KNOWN ALLERGIES (Unverified , 08/21/24) Current Medications Current Medications Medications (Trade) Dose Ordered Sig/Osriis Route PRN Reason Start Time Stop Time Status Last Admin Sodium Chloride (Saline Lock Ns) 10 ml Q8HR IV 08/21/24 22:00 08/21/24 22:05 Sodium Chloride 1,000 ml @ 120 mls/hr Q8H20M IV 08/21/24 21:30 08/22/24 07:54 Enoxaparin Sodium (Lovenox) 40 mg DAILY SC 08/22/24 10:00 Acetaminophen (Tylenol Tablet) 650 mg Q6HP PRN PO PAIN SCALE 1-3 OR TEMP>100.4 08/21/24 21:30 Nitroglycerin (Ntrostat Sublingual) 0.4 mg Q5MINP PRN SL FOR CHEST PAIN 08/21/24 21:30 Morphine Sulfate 2 mg Q30M PRN IV FOR CHEST PAIN 08/21/24 21:30 08/21/24 23:59 Hydralazine HCl (Apresoline Injection) 10 mg Q6HP PRN IV SBP>150 08/21/24 23:30 08/22/24 06:55 DC Acetaminophen/ Hydrocodone Bitart ([place] 5/325MG Tab) 1 tab Q4HPRN PRN PO MODERATE PAIN (4-6 PAIN SCALE) 08/21/24 23:45 Ceftriaxone Sodium 50 ml @ 100 mls/hr DAILY@09 IV 08/22/24 09:00 08/22/24 05:34 DC Aspirin 81 mg DAILY PO 08/22/24 10:00 Clopidogrel Bisulfate (Plavix) 75 mg DAILY PO 08/22/24 10:00 Hydroxychloroquine Sulfate (Plaquenil Tablet) 200 mg DAILY PO 08/22/24 10:00 Vancomycin HCl 0 ml @ 0 mls/hr UD IV 08/22/24 05:15 UNV Ceftriaxone Sodium/Dextrose 50 ml @ 50 mls/hr Q12HR@09,21 IV 08/22/24 05:15 08/22/24 05:21 Ampicillin Sodium 2 gm/Sodium Chloride 100 ml @ 100 mls/hr Q4HR IV 08/22/24 06:00 08/22/24 08:25 Dexamethasone Sodium Phosphate (Decadron Injection) 10 mg Q6HR IV 08/22/24 06:00 08/22/24 06:52 Hydralazine HCl (Apresoline Injection) 10 mg Q6HP PRN IV SBP > 150 08/22/24 07:00 Review of Systems As above, the other systems are negative Vital Signs Vital Signs Date Time Temp Pulse Resp B/P (MAP) Pulse Ox O2 Delivery O2 Flow Rate FiO2 08/22/24 07:50 132 42 93 Room Air* 0 21 08/22/24 07:49 97.9 106/77 (87) 97.9 Physical Exam GENERAL EXAM: General: the patient is well developed and nourished. No acute distress. HEENT: Normocephalic, neck is rigid, no carotid bruits. No mass. RESPIRATORY: Normal respiratory effort with symmetrical lung expansion. Lungs clear to auscultation. CARDIOVASCULAR: Regular rate and rhythm with no murmurs. S1, S2. ABDOMEN: Soft, nontender, normal bowel sound NEUROLOGICAL: MENTAL STATUS: Awake. Oriented to person, place, she knows year, she does not want to talk, she answer my questions if she wants SPEECH, LANGUAGE, HIGHER CORTICAL FUNCTION: no aphasia or dysathria. CRANIAL NERVES: #2: Intact visual salvador to confrontation. #3,4,6: Pupils are equal, round and reactive. EOMs full and conjugate. #5: Facial sensation intact in all three divisions bilaterally. Mandibular strength intact. #7: Facial muscles symmetrical and strength intact. #8: Hearing grossly normal to voice. #9,10: Deferred #11: Deferred, but she moves the head from [id number] with no problems #12: Deferred SENSATION: Sensation to touch and pinprick is fine MOTOR: Normal tone in the upper and lower extremity. Normal muscle bulk. No fasciculations. Mild tremors symmetrically in both upper extremity, he moves the arms and legs REFLEXES: Deep tendon reflexes are symmetrical. No pathological reflexes. CEREBELLAR/COORDINATION: Deferred GAIT/STATION: deferred. Labs/Diagnostic Data Labs Test 08/22/24 09:06 08/22/24 07:42 08/22/24 05:08 08/22/24 02:21 Range/Units CSF Tube Number Tube 3 CSF Appearance Bloody CSF WBC 750 H 0-5 CUMM CSF RBC 398346 H 0-5 CUMM CSF Protein (Tube 2) 2072.4 H 15-45 mg/dL CSF Mononuclear Cells 24 % CSF Polymorphonuclear Cells 76 % Differential Total Cells Counted 100.0 100 Neutrophils % (Manual) 78 37.0-80.0 Band Neutrophils % (Manual) 1 Lymphocytes % (Manual) 13 10.0-50.0 Monocytes % (Manual) 8 0-12 Eosinophils % (Manual) 0 0-7 Basophils % (Manual) 0 0.0-2.0 Metamyelocytes % (manual) 0 Myelocytes % (Manual) 0 Promyelocytes % (Manual) 0 Blast Cells % (Manual) 0 Reactive Lymphocytes 0 Platelet Estimate Increased Large Platelets Few Microcytosis Slight Macrocytosis Erythrocyte Sedimentation Rate 25 H 0-20 mm/hr Prothrombin Time 11.1 9.3-11.8 sec Prothrombin Time INR 1.05 0.9-1.15 Activated Partial Thromboplast Time 25.5 24.5-34.5 SEC Ammonia 16 11-32 umol/L C-Reactive Protein High Sensitivity 1.73 H <1.0 mg/dL Test 08/21/24 22:50 08/21/24 21:29 08/21/24 19:44 08/21/24 14:32 Range/Units Influenza Type A Antigen Negative Negative Influenza Type B Antigen Negative Negative SARS-CoV-2 Antigen (Rapid) Negative NEGATIVE Eosinophils (%) (Auto) 0.0 0.0-7.0 % Eosinophils # (Auto) 0 0-0.8 10 ^3/uL Basophils # (Auto) 0.1 0-0.2 10 ^3/uL Nucleated Red Blood Cells 0.0 % Magnesium Level 1.7 1.6-2.6 mg/dL Creatine Kinase 233 H 34-145 U/L Thyroid Stimulating Hormone (TSH) 0.75 0.55-4.78 uIU/mL Plasma/Serum Blood Alcohol < 3.0 <10 mg/dL Lactic Acid Level 4.5 *H 0.4-2.0 mmol/L Urine Color Light-yellow Yellow Urine Clarity Clear Clear Urine pH 6.5 5.0-9.0 Urine Specific [place] 1.015 1.001-1.035 Urine Protein 1+ H Negative Urine Ketones Negative Negative Urine Blood 2+ H Negative /uL Urine Nitrite Negative Negative Urine Bilirubin Negative Negative Urine Urobilinogen Normal Negative mg/dL Urine Leukocyte Esterase Negative Negative /uL Urine RBC 49 0 - 4 /hpf Urine Microscopic WBC 4 0-5 /HPF Urine Squamous Epithelial Cells Few <5 /hpf Urine Bacteria None seen None Seen /hpf Urine Mucus Few None Seen Urine Glucose Normal Normal mg/dL Urine Opiates Screen Pos NEGATIVE Urine Fentanyl Screen Neg NEGATIVE Urine Barbiturates Screen Neg NEGATIVE Urine Phencyclidine Screen Neg NEGATIVE Urine Amphetamines Screen Neg NEGATIVE Urine Benzodiazepines Screen Neg NEGATIVE Urine Cocaine Screen Neg NEGATIVE Urine Cannabinoids Screen Pos NEGATIVE Test 08/21/24 13:00 Range/Units Microbiology Date/Time Source Procedure Growth Status 08/22/24 05:08 Cerebral Spinal Fluid Gram Stain - Final Resulted 08/22/24 05:08 Cerebral Spinal Fluid CSF Culture & Gram Stain (Tube 2) M Pending Resulted Assessment Acute headache with abnormal CSF profile ? Meningitis ? SAH ? 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 Although this document has been carefully reviewed, there may still be some phonetic and typographical errors. These areas are purely typographical due to imperfections of the software programs, an d do not reflect any compromise in the patient's medical care. Plan discussed with: Spouse, Other PHILIP WELLS MD Aug 22, 2024 09:32
[2024-08-22 09:35] LABS: Alanine Aminotransferase 27 U/L (7-40); Albumin 3.9 g/dL (3.2-4.8); Alkaline Phosphatase 72 U/L (46-116); Anion Gap 12 (5-15); Aspartate Aminotransferase 36 U/L (13-40); BUN/Creatinine Ratio 21.3 (10.0-20.0); Bilirubin, Total 0.5 mg/dL (0.2-1.0); Blood Urea Nitrogen 13 mg/dL (9-23); Carbon Dioxide 22 mmol/L (20-31); Chloride 102 mmol/L (98-107); Potassium 3.6 mmol/L (3.5-5.1); Sodium 136 mmol/L (136-145); Total Protein 7.6 g/dL (5.7-8.2)
[2024-08-22 09:36] LABS: Calcium 8.4 mg/dL (8.7-10.4); Glucose 125 mg/dL (74-106)
[2024-08-22] MEDS: hydrOXYchloroQUINE SULFATE 200 MG TAB PO SCH (10:00)
[2024-08-22] MEDS: CLOPIDOGREL BISULFATE 75 MG TAB PO SCH (10:00)
[2024-08-22] MEDS: ASPirin 81 mg TAB PO SCH (10:00)
--- NOTE | 2024-08-22 10:16 | ECG ---
[facility] Test Date: 2024-08-21 Test Time: 12:39:44 Pat Name: BEREKET RAYMUNDO Department: ER Room: [address] [place] [address] Gender: F [employer] Officer: KEVIN : 1995 Requested By: EDGAR IRELAND Order Number: [id number] Reading MD: Elder Brumfield Measurements Intervals Heppner Rate: 68 P: 47 TN: 111 QRS: 58 QRSD: 74 T: 56 QT: 407 QTc: 433 Interpretive Statements Sinus rhythm Borderline short TN interval Minimal ST depression, inferior leads Baseline wander in lead(s) I,II,III,aVR,aVF Electronically Signed On 08-26-2024 17:07:22 PST by Elder Brumfield Please click the below link to view image of tracing.
[2024-08-22] MEDS: ACYCLOVIR SOD 50MG/ML 800 MG in SODIUM CHL 0.9% 250 ML IV ONE (10:29)
[2024-08-22 12:19] LABS: Base Excess -2.5 mmol/L (-2.0-3.0)
--- NOTE | 2024-08-22 12:22 | DVHPN2 ---
Subjective Patient reports having a headache. Reviewed: Care Plan, H&P, Labs, Medications Changes from previous H/P or p: No Changes General: Per HPI, Chills Eyes: No Pain, No Vision change, No Conjunctivae inflammation, No Eyelid inflammation, No Other, No Redness ENT: No Ear pain, No Ear discharge, No Nose pain, No Nose discharge, No Nose congestion, No Mouth pain, No Mouth swelling, No Throat pain, No Throat swelling, No Other Cardiovascular: Lt Headedness Respiratory: No Cough, No Dry, No Shortness of breath, No SOB with excertion, No Wheezing, No Hemoptysis, No Pleuritic Pain, No Sputum, No Other Gastrointestinal: No Nausea, No Vomiting, No Abdominal Pain, No Diarrhea, No Constipation, No Melena, No Hematochezia, No Other Genitourinary: No Dysuria, No Frequency, No Incontinence, No Hematuria, No Retention, No Other Musculoskeletal: back pain Objective Vitals Vital Signs Date Time Temp Pulse Resp B/P (MAP) Pulse Ox O2 Delivery O2 Flow Rate FiO2 08/22/24 07:50 132 42 93 Room Air* 0 21 08/22/24 07:49 97.9 106/77 (87) 97.9 Intake/Output Intake and Output 08/22/24 07:00 Intake Total 2330.0 ml Balance 2330.0 ml Intake IV Total 2330.0 ml General Appearance: Alert, Oriented X3, Cooperative, No acute distress HEENT: Atraumatic, PERRLA Neck: Carotid Bruits Lipscomb Lungs: Clear to auscultation, Normal air movement Cardiovascular: Normal S1, Normal S2 Musculoskeletal: Normal sensory function, Normal motor function Neuro: Normal gait, Normal speech Skin: Dry, Intact Psych/Mental Status: Mental status NL, Mood NL Medications Current Medications Medications Dose Ordered Sig/Osiris Route Start Time Stop Time Status Last Admin Dose Admin Sodium Chloride 10 ml Q8HR IV 08/21/24 22:00 08/21/24 22:05 10 ML Sodium Chloride 1,000 ml @ 120 mls/hr Q8H20M IV 08/21/24 21:30 08/22/24 07:54 120 MLS/HR Enoxaparin Sodium 40 mg DAILY SC 08/22/24 10:00 Acetaminophen 650 mg Q6HP PRN PO 08/21/24 21:30 Nitroglycerin 0.4 mg Q5MINP PRN SL 08/21/24 21:30 Morphine Sulfate 2 mg Q30M PRN IV 08/21/24 21:30 08/21/24 23:59 2 MG Acetaminophen/ Hydrocodone Bitart 1 tab Q4HPRN PRN PO 08/21/24 23:45 Aspirin 81 mg DAILY PO 08/22/24 10:00 Clopidogrel Bisulfate 75 mg DAILY PO 08/22/24 10:00 Hydroxychloroquine Sulfate 200 mg DAILY PO 08/22/24 10:00 Vancomycin HCl 0 ml @ 0 mls/hr UD IV 08/22/24 05:15 Ceftriaxone Sodium/Dextrose 50 ml @ 50 mls/hr Q12HR@,21 IV 08/22/24 05:15 08/22/24 05:21 50 MLS/HR Ampicillin Sodium 2 gm/Sodium Chloride 100 ml @ 100 mls/hr Q4HR IV 08/22/24 06:00 08/22/24 10:00 100 MLS/HR Dexamethasone Sodium Phosphate 10 mg Q6HR IV 08/22/24 06:00 08/22/24 06:52 10 MG Hydralazine HCl 10 mg Q6HP PRN IV 08/22/24 07:00 Lorazepam 1 mg ONCE PRN IV 08/22/24 10:45 Vancomycin HCl 100 ml @ 100 mls/hr Q8H IV 08/22/24 11:00 Laboratory Results Laboratory Tests 08/22/24 09:06 Chemistry Test 08/21/24 13:00 08/21/24 21:29 08/22/24 02:21 08/22/24 09:06 Calcium Level 8.9 mg/dL (8.7-10.4) 8.0 mg/dL (8.7-10.4) L 7.8 mg/dL (8.7-10.4) L 8.4 mg/dL (8.7-10.4) L Albumin 3.4 g/dL (3.2-4.8) 3.4 g/dL (3.2-4.8) 3.9 g/dL (3.2-4.8) Magnesium Level 1.7 mg/dL (1.6-2.6) Total Protein 6.8 g/dL (5.7-8.2) 6.7 g/dL (5.7-8.2) 7.6 g/dL (5.7-8.2) Coagulation Test 08/22/24 02:21 Prothrombin Time 11.1 sec (9.3-11.8) Prothrombin Time INR 1.05 (0.9-1.15) Activated Partial Thromboplast Time 25.5 SEC (24.5-34.5) LFT Test 08/21/24 21:29 08/22/24 02:21 08/22/24 09:06 Alanine Aminotransferase (ALT) 32 U/L (7-40) 29 U/L (7-40) 27 U/L (7-40) Alkaline Phosphatase 64 U/L (46-116) 63 U/L (46-116) 72 U/L (46-116) Aspartate Amino Transferase (AST) 37 U/L (13-40) 34 U/L (13-40) 36 U/L (13-40) Total Bilirubin 0.3 mg/dL (0.2-1.0) 0.3 mg/dL (0.2-1.0) 0.5 mg/dL (0.2-1.0) HgA1c, TSH Test 08/21/24 21:29 Thyroid Stimulating Hormone (TSH) 0.75 uIU/mL (0.55-4.78) Urinalysis Test 08/21/24 14:32 08/22/24 07:42 Urine Color Light-yellow (Yellow) Urine Clarity Clear (Clear) Urine pH 6.5 (5.0-9.0) Urine Specific [place] 1.015 (1.001-1.035) Urine Protein 1+ (Negative) H Urine Ketones Negative (Negative) Urine Blood 2+ /uL (Negative) H Urine Nitrite Negative (Negative) Urine Bilirubin Negative (Negative) Urine Urobilinogen Normal mg/dL (Negative) Urine Leukocyte Esterase Negative /uL (Negative) Urine RBC 49 /hpf (0 - 4) Urine Microscopic WBC 4 /HPF (0-5) Urine Squamous Epithelial Cells Few /hpf (<5) Urine Bacteria None seen /hpf (None Seen) Urine Mucus Few (None Seen) Urine Glucose Normal mg/dL (Normal) Urine Creatinine Pending Urine Protein/Creatinine Ratio Pending Urine Total Protein Pending Microbiology Microbiology Date/Time Source Procedure Growth Status 08/22/24 05:08 Cerebral Spinal Fluid Gram Stain - Final Resulted 08/22/24 05:08 Cerebral Spinal Fluid CSF Culture & Gram Stain (Tube 2) M Pending Resulted 08/21/24 14:32 Voided Urine Urine Culture - Preliminary Resulted Labs and/or images reviewed: Labs reviewed by me, Image(s) reviewed by me Assessment/Plan Assessment/Plan Impression: -metabolic encephalopathy -rule out meningitis -lupus -marijuana use -? Recent CVA Plan: -patient had lumbar puncture, traumatic with increase white blood cell/red blood cell count. Also noted that patient was recently prescribed Plavix from previous provider at [facility]. -neurology consultation: Discussed case with Dr. Gerardo. Plans for MRI/MRA. Apparently at this time radiology is not willing to perform this test because patient was a rule out meningitis -continue current antibiotic therapy for meningitis -IV fluids -monitor lower extremity weakness. If worsens, we will order imaging. -blood cultures -ABG -repeat labs in a.m. Total time spent with patient discussing and formulating plan of care: 35 minutes. This medical document was created using an electronic medical record system with [employer] dictation system. Although this document has been carefully reviewed, there may still be some phonetic and typographical errors. These areas are purely typographical due to imperfections of the software programs, and do not reflect any compromise in the patient's medical care. Plan discussed with: Patient, Other (RN) My Orders Orders - AJ THOMAS NP Procedure Category Date Status Time Abg W/ Co-Ox RT 08/22/24 Logged 11:45 Basic Metabolic Panel LAB 08/23/24 Verified 04:00 Complete Blood Count LAB 08/23/24 Verified 04:00 Obtain Mr From Other ORDERS 08/22/24 Transmitted Facility 11:54 Date of Service: Aug 22, 2024 Billing Provider: AJ THOMAS NP Common Visit Codes: [id number] CARE 30-74 MIN AJ THOMAS NP Aug 22, 2024 12:22
[2024-08-22] MEDS: ENOXAPARIN SOD 40 MG/0.4 ML SYRINGE SC SCH (13:00)
[2024-08-22] MEDS: VANCOMYCIN 750MG KIT 100 ML IV SCH (14:45)
[2024-08-22] MEDS: hydrALAZINE HCL 20 MG/ML VL IV PRN (15:50)
[2024-08-22 20:18] VITALS: PULSE 133; RESP 33; O2SAT 99
[2024-08-22] MEDS: LORazepam 2MG/ML-1ML VIAL IM ONE (21:26)
[2024-08-22] MEDS: dilTIAZem 25 MG/5 ML VIAL IV ONE (23:55)
[2024-08-23] VITALS (23 sets, daily range): BP systolic 113–178; BP diastolic 67–102; PULSE 100–122; RESP 10–34; TEMP 97.3–97.6; O2SAT 99–100
[2024-08-23] MEDS: LORazepam 2MG/ML-1ML VIAL IV ONE (01:44)
[2024-08-23] MEDS: LABETALOL HCL 20 MG/4 ML VL IV ONE (05:38)
[2024-08-23] MEDS ORDERED: LORazepam 2MG/ML-1ML VIAL IV PRN (08:30)
--- NOTE | 2024-08-23 08:50 | DVHPN2 ---
Subjective Patient now with garbled speech. Reviewed: Care Plan, H&P, Labs, Medications Changes from previous H/P or p: Changes General: Per HPI, Chills Eyes: No Pain, No Vision change, No Conjunctivae inflammation, No Eyelid inflammation, No Other, No Redness ENT: No Ear pain, No Ear discharge, No Nose pain, No Nose discharge, No Nose congestion, No Mouth pain, No Mouth swelling, No Throat pain, No Throat swelling, No Other Cardiovascular: Lt Headedness Respiratory: No Cough, No Dry, No Shortness of breath, No SOB with excertion, No Wheezing, No Hemoptysis, No Pleuritic Pain, No Sputum, No Other Gastrointestinal: No Nausea, No Vomiting, No Abdominal Pain, No Diarrhea, No Constipation, No Melena, No Hematochezia, No Other Genitourinary: No Dysuria, No Frequency, No Incontinence, No Hematuria, No Retention, No Other Musculoskeletal: back pain Objective Vitals Vital Signs Date Time Temp Pulse Resp B/P (MAP) Pulse Ox O2 Delivery O2 Flow Rate FiO2 08/23/24 08:00 146 15 138/83 (101) 84 08/23/24 06:00 98.2 98.2 08/22/24 20:18 Room Air* 0 21 Intake/Output Intake and Output 08/23/24 07:00 Intake Total 1770 ml Output Total 2250 ml Balance -480 ml Intake IV Total 1770 ml Output Urine Total 2250 ml General Appearance: Alert, Oriented X3, Cooperative, No acute distress HEENT: Atraumatic, PERRLA Neck: Carotid Bruits [place] Lungs: Clear to auscultation, Normal air movement Cardiovascular: Normal S1, Normal S2 Musculoskeletal: Normal sensory function, Normal motor function Neuro: Normal gait, Normal speech Skin: Dry, Intact Psych/Mental Status: Mental status NL, Mood NL Medications Current Medications Medications Dose Ordered Sig/Osiris Route Start Time Stop Time Status Last Admin Dose Admin Sodium Chloride 10 ml Q8HR IV 08/21/24 22:00 08/23/24 05:40 10 ML Sodium Chloride 1,000 ml @ 120 mls/hr Q8H20M IV 08/21/24 21:30 08/23/24 06:30 120 MLS/HR Enoxaparin Sodium 40 mg DAILY SC 08/22/24 10:00 08/22/24 13:00 40 MG Acetaminophen 650 mg Q6HP PRN PO 08/21/24 21:30 Nitroglycerin 0.4 mg Q5MINP PRN SL 08/21/24 21:30 Morphine Sulfate 2 mg Q30M PRN IV 08/21/24 21:30 08/21/24 23:59 2 MG Acetaminophen/ Hydrocodone Bitart 1 tab Q4HPRN PRN PO 08/21/24 23:45 Aspirin 81 mg DAILY PO 08/22/24 10:00 Clopidogrel Bisulfate 75 mg DAILY PO 08/22/24 10:00 Hydroxychloroquine Sulfate 200 mg DAILY PO 08/22/24 10:00 Vancomycin HCl 0 ml @ 0 mls/hr UD IV 08/22/24 05:15 Ceftriaxone Sodium/Dextrose 50 ml @ 50 mls/hr Q12HR@ IV 08/22/24 05:15 08/22/24 23:38 50 MLS/HR Ampicillin Sodium 2 gm/Sodium Chloride 100 ml @ 100 mls/hr Q4HR IV 08/22/24 06:00 08/22/24 18:22 100 MLS/HR Dexamethasone Sodium Phosphate 10 mg Q6HR IV 08/22/24 06:00 08/23/24 05:38 10 MG Hydralazine HCl 10 mg Q6HP PRN IV 08/22/24 07:00 08/22/24 15:50 10 MG Lorazepam 1 mg ONCE PRN IV 08/22/24 10:45 Vancomycin HCl 100 ml @ 100 mls/hr Q8H IV 08/22/24 11:00 08/23/24 03:00 100 MLS/HR Lorazepam 1 mg Q4HP PRN IV 08/23/24 08:30 UNV Esmolol HCl 250 ml @ 0 mls/hr Q0M IV 08/23/24 08:30 UNV Laboratory Results Laboratory Tests 08/22/24 09:06 Chemistry Test 08/22/24 09:06 Albumin 3.9 g/dL (3.2-4.8) Calcium Level 8.4 mg/dL (8.7-10.4) L Total Protein 7.6 g/dL (5.7-8.2) LFT Test 08/22/24 09:06 Alanine Aminotransferase (ALT) 27 U/L (7-40) Alkaline Phosphatase 72 U/L (46-116) Aspartate Amino Transferase (AST) 36 U/L (13-40) Total Bilirubin 0.5 mg/dL (0.2-1.0) Urinalysis Test 08/21/24 14:32 08/22/24 07:42 Urine Color Light-yellow (Yellow) Urine Clarity Clear (Clear) Urine pH 6.5 (5.0-9.0) Urine Specific [place] 1.015 (1.001-1.035) Urine Protein 1+ (Negative) H Urine Ketones Negative (Negative) Urine Blood 2+ /uL (Negative) H Urine Nitrite Negative (Negative) Urine Bilirubin Negative (Negative) Urine Urobilinogen Normal mg/dL (Negative) Urine Leukocyte Esterase Negative /uL (Negative) Urine RBC 49 /hpf (0 - 4) Urine Microscopic WBC 4 /HPF (0-5) Urine Squamous Epithelial Cells Few /hpf (<5) Urine Bacteria None seen /hpf (None Seen) Urine Mucus Few (None Seen) Urine Glucose Normal mg/dL (Normal) Urine Creatinine Pending Urine Protein/Creatinine Ratio Pending Urine Total Protein Pending Blood Gas Results Test 08/22/24 12:09 Arterial Blood pH 7.536 (7.350-7.450) FiO2 % 21.0 Microbiology Microbiology Date/Time Source Procedure Growth Status 08/22/24 05:08 Cerebral Spinal Fluid Gram Stain - Final Resulted 08/22/24 05:08 Cerebral Spinal Fluid CSF Culture & Gram Stain (Tube 2) M Pending Resulted 08/21/24 17:40 Blood Blood Culture - Preliminary NO GROWTH AFTER 24 HOURS OF INCUBATION. Resulted 08/21/24 14:32 Voided Urine Urine Culture - Preliminary Resulted Labs and/or images reviewed: Labs reviewed by me, Image(s) reviewed by me Assessment/Plan Assessment/Plan Impression: -metabolic encephalopathy -rule out meningitis -lupus -marijuana use -? Recent CVA Plan: -events: Patient continues to have altered mental status, worsening tachycardia. ABG, labs not performed this a.m.. Lumbar puncture has high probability of being nondiagnostic knee gave out traumatic stick with increased RBC noted. Unable to find family contact and records. CT scan of the head with contrast rule out acute pathology given MRI can not be done at this time. -lorazepam IV p.r.n. anxiety/agitation -start esmolol drip to control patient's heart rate -social service consult for obtaining patient family contact -neurology consultation: Discussed case with Dr. Gerardo. Plans for MRI/MRA. Apparently at this time radiology is not willing to perform this test because patient was a rule out meningitis -continue current antibiotic therapy for meningitis -IV fluids -pancultures: Urine culture probably contaminated given greater than 3 colonies growing. Blood culture negative -repeat labs in a.m. Critical care time spent with patient discussing and formulating plan of care: 40 minutes. This does not include time spent performing procedures. This medical document was created using an electronic medical record system with [employer] dictation system. Although this document has been carefully reviewed, there may still be some phonetic and typographical errors. These areas are purely typographical due to imperfections of the software programs, and do not reflect any compromise in the patient's medical care. Plan discussed with: Patient, Other (RN) My Orders Orders - AJ THOMAS NP Procedure Category Date Status Time Abg W/ Co-Ox RT 08/22/24 Logged 11:45 Basic Metabolic Panel LAB 08/23/24 Logged 04:00 Complete Blood Count LAB 08/23/24 Logged 04:00 Obtain Mr From Other ORDERS 08/22/24 Transmitted Facility 11:54 Lorazepam 2mg/Ml Inj PHA 08/23/24 Logged (Ativan Inj) 08:[address] 08/23/24 Logged 08:28 Beta Hcg, Quantitative LAB 08/23/24 Logged 08:28 Comprehensive LAB 08/24/24 Verified Metabolic Panel 04:00 Complete Blood Count LAB 08/24/24 Verified 04:00 Esmolol Hcl-Ns PHA 08/23/24 Logged 10mg/Ml (Brevibloc) 08:30 * Cable Supervisor CONS 08/23/24 Transmitted Consult Date of Service: Aug 23, 2024 Billing Provider: AJ THOMAS NP Common Visit Codes: [id number] CARE 30-74 MIN AJ THOMAS NP Aug 23, 2024 08:49
[2024-08-23] MEDS: IOHEXOL 300 MG/ML 100ML BOTTLE IJ ONE (09:04)
--- NOTE | 2024-08-23 09:26 | DVHPN2 ---
Progress Note - Dictate Date Seen: Aug 23, 2024 Medical Necessity Reason Pt with a Central, PICC or Fol: No Subjective Ms. Ernandez is a 29 years old right-handed female with a history of lupus, he was brought to the [facility] on 08/21/2024 with a chief company of intense headache. I have seen and examined the patient, I have talked to her nurse, the patient was is awake, but she was not cooperative, she was talks when she wants, she was oriented to person, place, she knows year. She also touches and picks the air She moves the arms, the muscle power feels normal, she only move the legs a little bit, no definite evidence of sensory level CSF profile, 08/22/2024: Bloody, RBC: 365287, WBC: 750, mono: 24%, poly: 76%, protein: 2072.4 UDS, 08/21/2024: Opiates, cannabinoids, Plasma alcohol, 08/21/2024: <3 Urinalysis, 08/21/2024: WBC: Four, urine leukocyte esterase: Negative WBC/HB/PLT/MCV, 08/22/2024: 26.7/10.2/571/78.6 ESR, 08/21/2024: 24, 08/22/2024: 25 CMP, 08/22/2024: Unremarkable CRP, 08/21/2024: 0.68, 08/22/2024: 1.73 TSH, 08/21/2024: 0.75 CT head, 08/21/2024: No CT evidence of acute intracranial abnormality vital signs Vital Sign Date Time Temp Pulse Resp B/P (MAP) Pulse Ox O2 Delivery O2 Flow Rate FiO2 08/23/24 08:55 Room Air* 0 21 08/23/24 08:00 146 15 138/83 (101) 84 08/23/24 06:00 98.2 98.2 Total Intake and Output 08/22/24 08/22/24 08/23/24 14:59 22:59 06:59 Intake Total 1060 ml 580 ml 250 ml Output Total 2250 ml Balance 1060 ml 580 ml -2000 ml medications Current Medications Medications Dose Ordered Sig/Osiris Route Start Time Stop Time Status Last Admin Dose Admin Sodium Chloride 10 ml Q8HR IV 08/21/24 22:00 08/23/24 05:40 10 ML Sodium Chloride 1,000 ml @ 120 mls/hr Q8H20M IV 08/21/24 21:30 08/23/24 06:30 120 MLS/HR Enoxaparin Sodium 40 mg DAILY SC 08/22/24 10:00 08/22/24 13:00 40 MG Acetaminophen 650 mg Q6HP PRN PO 08/21/24 21:30 Nitroglycerin 0.4 mg Q5MINP PRN SL 08/21/24 21:30 Morphine Sulfate 2 mg Q30M PRN IV 08/21/24 21:30 08/21/24 23:59 2 MG Acetaminophen/ Hydrocodone Bitart 1 tab Q4HPRN PRN PO 08/21/24 23:45 Aspirin 81 mg DAILY PO 08/22/24 10:00 Clopidogrel Bisulfate 75 mg DAILY PO 08/22/24 10:00 Hydroxychloroquine Sulfate 200 mg DAILY PO 08/22/24 10:00 Vancomycin HCl 0 ml @ 0 mls/hr UD IV 08/22/24 05:15 Ceftriaxone Sodium/Dextrose 50 ml @ 50 mls/hr Q12HR@09,21 IV 08/22/24 05:15 08/22/24 23:38 50 MLS/HR Ampicillin Sodium 2 gm/Sodium Chloride 100 ml @ 100 mls/hr Q4HR IV 08/22/24 06:00 08/22/24 18:22 100 MLS/HR Dexamethasone Sodium Phosphate 10 mg Q6HR IV 08/22/24 06:00 08/23/24 05:38 10 MG Hydralazine HCl 10 mg Q6HP PRN IV 08/22/24 07:00 08/22/24 15:50 10 MG Lorazepam 1 mg ONCE PRN IV 08/22/24 10:45 Vancomycin HCl 100 ml @ 100 mls/hr Q8H IV 08/22/24 11:00 08/23/24 03:00 100 MLS/HR Lorazepam 1 mg Q4HP PRN IV 08/23/24 08:30 Esmolol HCl 250 ml @ 0 mls/hr Q0M IV 08/23/24 08:30 objective General: the patient is well developed and nourished. No acute distress. MENTAL STATUS: Awake. Oriented to person, place, she knows year, she does not want to talk, she answer my questions if she wants SPEECH, LANGUAGE, HIGHER CORTICAL FUNCTION: no aphasia or dysathria. CRANIAL NERVES: Pupils are equal, round and reactive. EOMs full and conjugate. Facial sensation intact in all three divisions bilaterally. Mandibular strength intact. Facial muscles symmetrical and strength intact. SENSATION: Sensation to touch and pinprick is fine MOTOR: Normal tone in the upper and lower extremity. Normal muscle bulk. No fasciculations. Mild tremors symmetrically in both upper extremity, he moves the arms and legs REFLEXES: Deep tendon reflexes are symmetrical. No pathological reflexes. CEREBELLAR/COORDINATION: Deferred GAIT/STATION: deferred laboratory and microbiology Laboratory Tests 08/22/24 09:06 Test 08/22/24 09:06 Range/Units Serum Glucose 125 H 74-106 mg/dL Problem List Acute headache with abnormal CSF profile ? Meningitis ? SAH ? 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 Although this document has been carefully reviewed, there may still be some phonetic and typographical errors. These areas are purely typographical due to imperfections of the software programs, and do not reflect any compromise in the patient's medical care. Prognosis poor Plan discussed with: Other Total Time (mins): 35 PHILIP WELLS MD Aug 23, 2024 09:26
[2024-08-23 09:42] LABS: Basophils % (auto) 0.3 % (0.0-2.0); Eosinophils # (auto) 0 10 ^3/uL (0-0.8); Neutrophils % (auto) 84.1 % (37.0-80.0)
[2024-08-23 09:43] LABS: Basophils # (auto) 0.1 10 ^3/uL (0-0.2); Hematocrit 31.6 % (36.0-46.0); Lymphocytes # (auto) 1.7 10 ^3/uL (0.4-5.4); Mean Corpuscular Hemoglobin 24.7 pg (28.0-32.0); Mean Corpuscular Hgb Conc. 31.6 g/dL (32.0-36.0); Mean Corpuscular Volume 78.2 fL (80.0-100.0); Monocytes % (auto) 5.6 % (0.0-12.0); Neutrophils # (auto) 14.4 10 ^3/uL (1.6-8.6); Platelet Count (auto) 469 10^3/uL (140-450); Red Blood Cells 4.03 10^6/uL (4.0-5.20); Red Cell Distribution Width 18.8 % (11.8-14.3); White Blood Cell 17.1 10^3/uL (4.4-10.8)
[2024-08-23 09:57] LABS: Anion Gap 10 (5-15); Carbon Dioxide 22 mmol/L (20-31); Chloride 105 mmol/L (98-107); Sodium 137 mmol/L (136-145)
[2024-08-23 10:03] LABS: BUN/Creatinine Ratio 27.5 (10.0-20.0); Blood Urea Nitrogen 14 mg/dL (9-23)
[2024-08-23 10:07] LABS: Complement C3 39 mg/dL (82-167)
[2024-08-23 10:33] LABS: Calcium 8.6 mg/dL (8.7-10.4); Glucose 107 mg/dL (74-106); Potassium 3.1 mmol/L (3.5-5.1)
[2024-08-23] MEDS: HYDROcodone-ACET 5/325MG TAB PO PRN (11:31)
[2024-08-23] MEDS: LORazepam 2MG/ML-1ML VIAL IV PRN (11:55)
--- NOTE | 2024-08-23 12:17 | DVH ---
PROCEDURE: MRI MRA ANGIO HEAD BRAIN INDICATION: WILDER, SAH 08/23/2024 11:46 AM COMPARISON: None TECHNIQUE: MRA head without intravenous contrast. 3D image postprocessing was performed on a dedicated workstation and images were used for interpretat ion and reporting. FINDINGS: MRA head: There is preserved flow within the visualized bilateral distal internal carotid arteries. Petrous car otid arteries are not well imaged. There is preserved flow within the anterior and middle cerebral arteries. There is preserved flow within the basilar artery, cerebellar arteries and posterior cerebral arteri es. V4 segments are not imaged. There is no evidence of hemodynamically significant intracranial stenosis, proximal occlusion or aneu rysm. No abnormal venous signal is seen. IMPRESSION: 1. Limited exam as the posterior cranial fossa is not completely imaged. No evidence of hemodynamical ly significant intracranial stenosis, proximal occlusion, AVM or aneurysm. HS:Y
--- NOTE | 2024-08-23 12:27 | DVH ---
EXAMINATION: MRI BRAIN HEAD WO CONTRAST INDICATION: CVA COMPARISON: CT head 08/21/2024 TECHNIQUE: Multiplanar, multisequence magnetic resonance imaging of the brain was performed without t he use of intravenous contrast. FINDINGS: The MR images are moderately degraded by motion artifact. There is small area of curvilinear cortical restricted diffusion in the left parietal lobe (axial diffusion-weighted image 17). This May relate to an acute to subacute infarct. There is no evidence of hemorrhage. There is no evidence of a mass, mass effect or midline shift. There is no hydrocephalus or extra-axial fluid collection. The visual ized intracranial vasculature demonstrates appropriate flow-voids. The calvarium demonstrates normal marrow signal. The paranasal sinuses and mastoid air cells are clear. IMPRESSION: 1. Limited MR study demonstrates a small area of curvilinear cortical restricted diffusion in the lef t parietal lobe which May relate to an acute to subacute infarct. There is no evidence of hemorrhage. There is no significant mass effect. HS:Y
--- NOTE | 2024-08-23 12:58 | ECG ---
[facility] Test Date: 2024-08-21 Test Time: 17:29:47 Pat Name: BEREKET RAYMUNDO Department: ED Room: [address] [place] [address] Gender: F Belly Packer: AT : [id number] Requested By: EDGAR IRELAND Order Number: [id number] Reading MD: Elder Brumfield Measurements Intervals [place] Rate: 113 P: 72 NH: 95 QRS: 16 QRSD: 81 T: 69 QT: 338 QTc: 464 Interpretive Statements Sinus tachycardia Minimal ST depression, lateral leads Electronically Signed On 08-26-2024 17:14:21 PST by Elder Brumfield Please click the below link to view image of tracing.
[2024-08-23] MEDS: POTASSIUM CHLORIDE 40 MEQ, LIDOCAINE 1% (LOCAL ANESTH.) 4 ML in SODIUM CHL 0.9% 250 ML IV ONE (13:50)
--- NOTE | 2024-08-23 14:08 | DVH ---
INDICATION: hematuria TECHNIQUE: Multiple real-time sonographic images of the kidneys and bladder were obtained. COMPARISON: None FINDINGS: RIGHT kidney measures 11.2 cm in length. No hydronephrosis. LEFT kidney measures 9.4 cm in length. No hydronephrosis. No large intraluminal masses are seen in the bladder. IMPRESSION: 1. Unremarkable examination.
[2024-08-23] MEDS ORDERED: ACYCLOVIR 10MG/KG Q8HR PER RX 0 ML IV SCH (14:15)
[2024-08-23] MEDS: ESMOLOL HCL 10MG/ML 250 ML IV SCH (14:18)
--- NOTE | 2024-08-23 14:20 | DVH ---
OB ULTRASOUND <14 WEEKS: HISTORY: abdominal pain, back pain, ams TECHNIQUE: Multiple real-time grayscale sonographic images of the pelvis with duplex Doppler color f low, spectral and M-mode analysis. TRANSDUCERS: Transabdominal FINDINGS: The uterus measures 6 x 5 x 3 cm. Endometrium measures 1.7 cm. The cervix was not seen. Right ovary not visualized. Left ovary measures 3 x 3 x 2 cm with normal Doppler color flow IMPRESSION: No IUP is noted. Correlate with serial beta hCGs.
--- NOTE | 2024-08-23 16:08 | DVHINCON2 ---
Date of service: Aug 23, 2024 Referring Physician Hospitalist Reason for Consultation Urinary retention History of Present Illness Patient has altered level of consciousness with an indwelling Mills catheter placed with over 2 L urine output noted. Apparently she was noted to not ur inate for two days and Mills catheter was placed. She is unable to give urological history at this time. Interestingly her beta HCG level is elevated at 18.3 29 years old female with a PMH of lupus presented to the ED with the chief complaints of severe headache since today morning. Patient reported she is diagnosed with lupus in 2019, she was not on medication last year and restarted her medication in May. Last week patient went to other facility due to headache, did a MRI found it multiple mini strokes, started on aspirin, clopidogrel and Lipitor. On Wednesday patient woke up with severe back pain, unable to sit or stand which made her to visit [facility] ED MRI of the spine which found it having bulging disc or cyst and urinalysis was positive for UTI, given cephalexin. Again today moaning patient started having severe headache described as drooling sensation into the brain or skull associated with mild vomiting lightheadedness which brought her to visit ED. on my assessment patient is very drowsy, sleeping due to medication. Past Medical History Lupus since 2019 Past Surgical History Unknown Allergies: Coded Allergies: NO KNOWN ALLERGIES (Unverified , 08/21/24) Current Medications Current Medications Medications (Trade) Dose Ordered Sig/Osiris Route PRN Reason Start Time Stop Time Status Last Admin Lorazepam (Ativan Inj) 1 mg Q4HP PRN IV ANXIETY 08/23/24 08:30 08/23/24 14:12 DC Esmolol HCl 250 ml @ 0 mls/hr Q0M IV 08/23/24 08:30 08/23/24 14:18 Dexamethasone Sodium Phosphate (Decadron Injection) 4 mg Q8HR IV 08/23/24 22:00 Acyclovir Sodium 0 ml @ 0 mls/hr PER PHARMACY IV 08/23/24 14:15 UNV Review of Systems Altered level of consciousness Vital Signs Vital Signs Date Time Temp Pulse Resp B/P (MAP) Pulse Ox O2 Delivery O2 Flow Rate FiO2 08/23/24 15:30 126 30 122/79 (93) 95 08/23/24 08:55 Room Air* 0 21 08/23/24 06:00 98.2 98.2 Physical Exam exam: Mills catheter in place Labs/Diagnostic Data Labs Test 08/23/24 09:24 08/22/24 12:09 08/22/24 09:06 08/22/24 07:42 Range/Units White Blood Count 17.1 #H 4.4-10.8 10^3/uL Red Blood Count 4.03 4.0-5.20 10^6/uL Hemoglobin 10.0 L 12.2-16.2 g/dL Hematocrit 31.6 #L 36.0-46.0 % Mean Corpuscular Volume 78.2 L 80.0-100.0 fL Mean Corpuscular Hemoglobin 24.7 L 28.0-32.0 pg Mean Corpuscular Hemoglobin Concent 31.6 L 32.0-36.0 g/dL Red Cell Distribution Width 18.8 H 11.8-14.3 % Platelet Count 469 H 140-450 10^3/uL Mean Platelet Volume 8.0 6.9-10.8 fL Neutrophils (%) (Auto) 84.1 H 37.0-80.0 % Lymphocytes (%) (Auto) 10.0 10.0-50.0 % Monocytes (%) (Auto) 5.6 0.0-12.0 % Eosinophils (%) (Auto) 0.0 0.0-7.0 % Basophils (%) (Auto) 0.3 0.0-2.0 % Neutrophils # (Auto) 14.4 H 1.6-8.6 10 ^3/uL Lymphocytes # (Auto) 1.7 0.4-5.4 10 ^3/uL Monocytes # (Auto) 1.0 0-1.3 10 ^3/uL Eosinophils # (Auto) 0 0-0.8 10 ^3/uL Basophils # (Auto) 0.1 0-0.2 10 ^3/uL Nucleated Red Blood Cells 0.0 % Sodium Level 137 136-145 mmol/L Potassium Level 3.1 L 3.5-5.1 mmol/L Chloride Level 105 98-107 mmol/L Carbon Dioxide Level 22 20-31 mmol/L Anion Gap 10 5-15 Blood Urea Nitrogen 14 9-23 mg/dL Creatinine 0.51 L 0.550-1.02 mg/dL Glomerular Filtration Rate Calc 129 >90 mL/min BUN/Creatinine Ratio 27.5 H 10.0-20.0 Serum Glucose 107 H 74-106 mg/dL Calcium Level 8.6 L 8.7-10.4 mg/dL Beta HCG, Quantitative 13.8 H 1.5-4.2 mIU/mL Vancomycin Level Trough 11.6 H 5-10 ug/mL Blood Gas Specimen Type Arterial Blood Gas Sample Site Right radial Blood Gas Patient Temperature 37.0 Arterial Blood Date Drawn [id number] Arterial Blood pH 7.536 H 7.350-7.450 Arterial Blood Partial Pressure CO2 22.5 L 32.0-45.0 mmHg Arterial Blood Partial Pressure O2 50.7 *L 83.0-108.0 mmHg Arterial Blood HCO3 18.6 L 21.0-28.0 mmol/L Arterial Blood Oxygen Saturation 87.4 L 94.0-98.0 % Arterial Blood Base Excess -2.5 L -2.0-3.0 mmol/L Arterial Blood Oxyhemoglobin 86.7 L 94.0-98.0 % Arterial Blood Carboxyhemoglobin 0.4 L 0.5-1.5 % Arterial Blood Methemoglobin 0.4 0.0-1.5 % Mian Test Modified Blood Gas Total Hemoglobin 11.30 L 12.0-16.0 g/dL Blood Gas Modality Room air FiO2 % 21.0 Blood Gas Critical Value Read Back Yes Blood Gas Notified Whom Aki patel np Blood Gas Notified Time [id number] Blood Gas Notified By Aleta kidd Total Bilirubin 0.5 0.2-1.0 mg/dL Aspartate Amino Transferase (AST) 36 13-40 U/L Alanine Aminotransferase (ALT) 27 7-40 U/L Alkaline Phosphatase 72 46-116 U/L Total Protein 7.6 5.7-8.2 g/dL Albumin 3.9 3.2-4.8 g/dL Test 08/22/24 05:08 08/22/24 02:21 08/21/24 22:50 08/21/24 21:29 Range/Units CSF Tube Number Tube 3 CSF Appearance Bloody CSF WBC 750 H 0-5 CUMM CSF RBC 625801 H 0-5 CUMM CSF Protein (Tube 2) 2072.4 H 15-45 mg/dL CSF Mononuclear Cells 24 % CSF Polymorphonuclear Cells 76 % Differential Total Cells Counted 100.0 100 Neutrophils % (Manual) 78 37.0-80.0 Band Neutrophils % (Manual) 1 Lymphocytes % (Manual) 13 10.0-50.0 Monocytes % (Manual) 8 0-12 Eosinophils % (Manual) 0 0-7 Basophils % (Manual) 0 0.0-2.0 Metamyelocytes % (manual) 0 Myelocytes % (Manual) 0 Promyelocytes % (Manual) 0 Blast Cells % (Manual) 0 Reactive Lymphocytes 0 Platelet Estimate Increased Large Platelets Few Microcytosis Slight Macrocytosis Erythrocyte Sedimentation Rate 25 H 0-20 mm/hr Prothrombin Time 11.1 9.3-11.8 sec Prothrombin Time INR 1.05 0.9-1.15 Activated Partial Thromboplast Time 25.5 24.5-34.5 SEC Ammonia 16 11-32 umol/L C-Reactive Protein High Sensitivity 1.73 H <1.0 mg/dL Complement C3 39 L 82-167 mg/dL Complement C4 4 L 12-38 mg/dL Influenza Type A Antigen Negative Negative Influenza Type B Antigen Negative Negative SARS-CoV-2 Antigen (Rapid) Negative NEGATIVE Magnesium Level 1.7 1.6-2.6 mg/dL Creatine Kinase 233 H 34-145 U/L Thyroid Stimulating Hormone (TSH) 0.75 0.55-4.78 uIU/mL Plasma/Serum Blood Alcohol < 3.0 <10 mg/dL Test 08/21/24 19:44 08/21/24 14:32 08/21/24 13:00 Range/Units Lactic Acid Level 4.5 *H 0.4-2.0 mmol/L Urine Color Light-yellow Yellow Urine Clarity Clear Clear Urine pH 6.5 5.0-9.0 Urine Specific Crowder 1.015 1.001-1.035 Urine Protein 1+ H Negative Urine Ketones Negative Negative Urine Blood 2+ H Negative /uL Urine Nitrite Negative Negative Urine Bilirubin Negative Negative Urine Urobilinogen Normal Negative mg/dL Urine Leukocyte Esterase Negative Negative /uL Urine RBC 49 0 - 4 /hpf Urine Microscopic WBC 4 0-5 /HPF Urine Squamous Epithelial Cells Few <5 /hpf Urine Bacteria None seen None Seen /hpf Urine Mucus Few None Seen Urine Glucose Normal Normal mg/dL Urine Opiates Screen Pos NEGATIVE Urine Fentanyl Screen Neg NEGATIVE Urine Barbiturates Screen Neg NEGATIVE Urine Phencyclidine Screen Neg NEGATIVE Urine Amphetamines Screen Neg NEGATIVE Urine Benzodiazepines Screen Neg NEGATIVE Urine Cocaine Screen Neg NEGATIVE Urine Cannabinoids Screen Pos NEGATIVE Microbiology Date/Time Source Procedure Growth Status 08/22/24 05:08 Cerebral Spinal Fluid Gram Stain - Final Resulted 08/22/24 05:08 Cerebral Spinal Fluid CSF Culture & Gram Stain (Tube 2) M - Preliminary Resulted 08/21/24 17:40 Blood Blood Culture - Preliminary NO GROWTH AFTER 24 HOURS OF INCUBATION. Resulted 08/21/24 14:32 Voided Urine Urine Culture - Preliminary Resulted Assessment Urinary retention Normal renal function Elevated beta HCG suggesting IUP, but the ultrasound does not show any evidence of Plan/Recommendation Recommend removing catheter when her overall condition improves Repeating beta HCG in one week Plan discussed with: Other ADRY CORBETT MD Aug 23, 2024 16:08
[2024-08-23] MEDS ORDERED: ACYCLOVIR IV SCH (17:00)
[2024-08-23] MEDS ORDERED: [UNRECOGNIZED DRUG - OTHER] IV SCH (17:00)
--- NOTE | 2024-08-23 17:42 | DVH ---
EXAM: XY CHEST XRAY 1 VIEW TECHNIQUE: Single frontal chest radiograph CLINICAL HISTORY: pna COMPARISON: None Findings/Impression: Frontal chest radiograph demonstrates no acute osseous or superficial soft tissue abnormalities. The trachea is midline. The cardiac silhouette and mediastinum are within normal limits. No pneumothorax, pleural effusions, or consolidations.
[2024-08-23] MEDS: ACYCLOVIR SOD 50MG/ML 500 MG in D5W 5% 100 ML IV SCH (17:47)
[2024-08-23] MEDS: TEMAZEPAM 15 MG CAP PO ONE (21:15)
[2024-08-23] MEDS: VANCOMYCIN 750MG KIT 100 ML IV SCH (21:29)
[2024-08-23] MEDS ORDERED: DexAMETHasone SOD PHOS 4 MG/1ML SDV INJ IV SCH (22:00)
[2024-08-23] MEDS ORDERED: methylPREDNISolone SOD SUCC 125 MG/2 ML VL IV SCH (22:30)
[2024-08-23] MEDS: methylPREDNISolone SOD SUCC 125 MG/2 ML VL ONE (23:28)
[2024-08-23] MEDS ORDERED: SODIUM CHL 0.9% IV SCH (23:30)
[2024-08-23] MEDS ORDERED: METHYLPREDNISOLONE SOD SUCC IV SCH (23:30)
[2024-08-23] MEDS: SODIUM CHL 0.9% IV SCH (23:55)
[2024-08-23] MEDS: METHYLPREDNISOLONE SOD SUCC IV SCH (23:55)
[2024-08-24] VITALS (93 sets, daily range): BP systolic 124–190; BP diastolic 76–112; PULSE 93–126; RESP 9–35; TEMP 97.8–98.7; O2SAT 95–100
[2024-08-24 00:30] LABS: Erythrocyte Sedimentation Rate 49 mm/hr (0-20)
[2024-08-24 03:50] LABS: Basophils # (auto) 0 10 ^3/uL (0-0.2); Eosinophils # (auto) 0 10 ^3/uL (0-0.8); Eosinophils % (auto) 0.1 % (0.0-7.0); Lymphocytes # (auto) 0.6 10 ^3/uL (0.4-5.4); Monocytes # (auto) 0.5 10 ^3/uL (0-1.3)
[2024-08-24 03:55] LABS: Basophils % (auto) 0.1 % (0.0-2.0); Hematocrit 28.3 % (36.0-46.0); Hemoglobin 8.9 g/dL (12.2-16.2); Lymphocytes % (auto) 5.6 % (10.0-50.0); Mean Corpuscular Hemoglobin 25.2 pg (28.0-32.0); Mean Corpuscular Hgb Conc. 31.4 g/dL (32.0-36.0); Monocytes % (auto) 4.5 % (0.0-12.0); Neutrophils % (auto) 89.7 % (37.0-80.0); Nucleated Red Blood Cells % 0.1 %; Platelet Count (auto) 367 10^3/uL (140-450); Red Blood Cells 3.54 10^6/uL (4.0-5.20); Red Cell Distribution Width 18.9 % (11.8-14.3); White Blood Cell 11.1 10^3/uL (4.4-10.8)
[2024-08-24 03:59] LABS: Alanine Aminotransferase 12 U/L (7-40); Anion Gap 12 (5-15); Aspartate Aminotransferase 19 U/L (13-40); BUN/Creatinine Ratio 31.3 (10.0-20.0); Blood Urea Nitrogen 10 mg/dL (9-23); Sodium 139 mmol/L (136-145)
[2024-08-24 04:00] LABS: Bilirubin, Total 0.3 mg/dL (0.2-1.0); Total Protein 5.8 g/dL (5.7-8.2)
[2024-08-24 04:04] LABS: Albumin 3.1 g/dL (3.2-4.8); Alkaline Phosphatase 44 U/L (46-116); Calcium 8.2 mg/dL (8.7-10.4); Carbon Dioxide 18 mmol/L (20-31); Chloride 109 mmol/L (98-107); Glucose 116 mg/dL (74-106); Potassium 3.3 mmol/L (3.5-5.1)
[2024-08-24 05:08] LABS: HSV-1 DNA CSF Negative (Negative); HSV-2 DNA Negative (Negative)
[2024-08-24] MEDS: POTASSIUM CHL 20MEQ/100ML 100 ML IV ONE ×2 (05:30→06:40)
[2024-08-24] MEDS: ACCU-CHEK COMFORT CURVE STRIP VI SCH (05:42)
--- NOTE | 2024-08-24 10:37 | DVHPN2 ---
Progress Note - Dictate Date Seen: Aug 24, 2024 Medical Necessity Reason Pt with a Central, PICC or Fol: No Subjective Ms. Ernandez is a 29 years old right-handed female with a history of lupus, he was brought to the [facility] on 08/21/2024 with a chief company of intense headache. I have seen and examined the patient. Her nurse, Aki, and I had a long meeting with her sister and boyfriend. The family has been updated about the patient was situation, treatment she is receiving. They had a lot of questions, they also asked the possibly to transfer her to a [facility]" She is oriented to person place, per my observation, she was better than the last evening. Her neck is not as rigid as before Dr. Lemus saw patient on 08/23/2024, he was recommend Solu-Medrol 1000 mg IV daily and then titrate CSF profile, 08/22/2024: Bloody, RBC: 674440, WBC: 750, mono: 24%, poly: 76%, protein: 2072.4 C4, 08/22/2019 5:4, C3, 08/22/2019 5:39 a.m. UDS, 08/21/2024: Opiates, cannabinoids, Plasma alcohol, 08/21/2024: <3 Urinalysis, 08/21/2024: WBC: Four, urine leukocyte esterase: Negative WBC/HB/PLT/MCV, 08/22/2024: 26.7/10.2/571/78.6 ESR, 08/21/2024: 24, 08/22/2024: 25, : 49 CMP, 08/22/2024: Unremarkable CRP, 08/21/2024: 0.68, 08/22/2024: 1.73, 08/23/2019 5:7.11 TSH, 08/21/2024: 0.75 CT head, 08/21/2024: No CT evidence of acute intracranial abnormality MRI head, 08/23/2024: Limited MR study demonstrates a small area of curvilinear cortical restricted diffusion in the left parietal lobe which May relate to an acute to subacute infarct. There is no evidence of hemorrhage. There is no significant mass effect. MRA head, 08/23/2024: Limited exam as the posterior cranial fossa is not completely imaged. No evidence of hemodynamically significant intracranial stenosis, proximal occlusion, AVM or aneurys vital signs Vital Sign Date Time Temp Pulse Resp B/P (MAP) Pulse Ox O2 Delivery O2 Flow Rate FiO2 08/24/24 08:45 105 24 140/87 (104) 100 08/24/24 08:30 Nasal Cannula* 2 28 08/24/24 08:00 98.7 98.7 Total Intake and Output 08/23/24 08/23/24 08/24/24 14:59 22:59 06:59 Intake Total 1020 ml 630 ml 1380 ml Output Total 300 ml 575 ml Balance 720 ml 630 ml 805 ml medications Current Medications Medications Dose Ordered Sig/Osiris Route Start Time Stop Time Status Last Admin Dose Admin Sodium Chloride 10 ml Q8HR IV 08/21/24 22:00 08/24/24 05:42 10 ML Sodium Chloride 1,000 ml @ 120 mls/hr Q8H20M IV 08/21/24 21:30 08/24/24 02:01 120 MLS/HR Enoxaparin Sodium 40 mg DAILY SC 08/22/24 10:00 08/24/24 10:22 40 MG Acetaminophen 650 mg Q6HP PRN PO 08/21/24 21:30 Nitroglycerin 0.4 mg Q5MINP PRN SL 08/21/24 21:30 Morphine Sulfate 2 mg Q30M PRN IV 08/21/24 21:30 08/21/24 23:59 2 MG Acetaminophen/ Hydrocodone Bitart 1 tab Q4HPRN PRN PO 08/21/24 23:45 08/24/24 07:48 1 TAB Vancomycin HCl 0 ml @ 0 mls/hr UD IV 08/22/24 05:15 Ceftriaxone Sodium/Dextrose 50 ml @ 50 mls/hr Q12HR@09,21 IV 08/22/24 05:15 08/24/24 01:27 50 MLS/HR Ampicillin Sodium 2 gm/Sodium Chloride 100 ml @ 100 mls/hr Q4HR IV 08/22/24 06:00 08/24/24 10:23 100 MLS/HR Hydralazine HCl 10 mg Q6HP PRN IV 08/22/24 07:00 08/24/24 07:58 10 MG Lorazepam 1 mg ONCE PRN IV 08/22/24 10:45 08/23/24 11:55 1 MG Esmolol HCl 250 ml @ 0 mls/hr Q0M IV 08/23/24 08:30 08/23/24 22:13 30 MLS/HR Acyclovir Sodium 0 ml @ 0 mls/hr PER PHARMACY IV 08/23/24 14:15 Acyclovir Sodium 500 mg/Dextrose 110 ml @ 110 mls/hr Q8H IV 08/23/24 18:00 08/24/24 02:45 110 MLS/HR Vancomycin HCl 100 ml @ 100 mls/hr Q7H IV 08/23/24 19:00 08/24/24 01:56 100 MLS/HR Methylprednisolone Sodium Succinate 1000 mg/Sodium Chloride 66 ml @ 66 mls/hr DAILY@2100 IV 08/23/24 23:30 08/23/24 23:55 66 MLS/HR Diagnostic Test (Pha) 1 strip Q6HR 08/24/24 06:00 08/24/24 05:42 1 STRIP objective General: the patient is well developed and nourished. No acute distress. MENTAL STATUS: Awake. Oriented to person, place, she knows year, she does not want to talk, she answer my questions if she wants SPEECH, LANGUAGE, HIGHER CORTICAL FUNCTION: no aphasia or dysathria. CRANIAL NERVES: Pupils are equal, round and reactive. EOMs full and conjugate. Facial sensation intact in all three divisions bilaterally. Mandibular strength intact. Facial muscles symmetrical and strength intact. SENSATION: Sensation to touch and pinprick is fine MOTOR: Normal tone in the upper and lower extremity. Normal muscle bulk. No fasciculations. Mild tremors symmetrically in both upper extremity, he moves the arms and legs REFLEXES: Deep tendon reflexes are symmetrical. No pathological reflexes. CEREBELLAR/COORDINATION: Deferred GAIT/STATION: deferred laboratory and microbiology Laboratory Tests 08/24/24 03:00 Test 08/24/24 03:00 Range/Units Serum Glucose 116 H 74-106 mg/dL Problem List Acute headache with abnormal CSF profile ? Meningitis ? SAH ? 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 Although this document has been carefully reviewed, there may still be some phonetic and typographical errors. These areas are purely typographical due to imperfections of the software programs, and do not reflect any compromise in the patient's medical care. Prognosis poor Plan discussed with: Other PHILIP WELLS MD Aug 24, 2024 10:37
--- NOTE | 2024-08-24 11:09 | DVHPN2 ---
Subjective Denies any symptoms. Reviewed: Care Plan, H&P, Labs, Medications Changes from previous H/P or p: No Changes General: Per HPI, Chills Eyes: No Pain, No Vision change, No Conjunctivae inflammation, No Eyelid inflammation, No Other, No Redness ENT: No Ear pain, No Ear discharge, No Nose pain, No Nose discharge, No Nose congestion, No Mouth pain, No Mouth swelling, No Throat pain, No Throat swelling, No Other Cardiovascular: Lt Headedness Respiratory: No Cough, No Dry, No Shortness of breath, No SOB with excertion, No Wheezing, No Hemoptysis, No Pleuritic Pain, No Sputum, No Other Gastrointestinal: No Nausea, No Vomiting, No Abdominal Pain, No Diarrhea, No Constipation, No Melena, No Hematochezia, No Other Genitourinary: No Dysuria, No Frequency, No Incontinence, No Hematuria, No Retention, No Other Musculoskeletal: back pain Objective Vitals Vital Signs Date Time Temp Pulse Resp B/P (MAP) Pulse Ox O2 Delivery O2 Flow Rate FiO2 08/24/24 10:00 103 08/24/24 10:00 21 100 Nasal Cannula* 2 28 08/24/24 08:45 140/87 (104) 08/24/24 08:00 98.7 98.7 Intake/Output Intake and Output 08/24/24 07:00 Intake Total 3165 ml Output Total 875 ml Balance 2290 ml Intake Oral 150 ml IV Total 3015 ml Output Urine Total 875 ml General Appearance: moderate distress, Other (Oriented to name and place.) HEENT: Atraumatic, PERRLA Neck: Carotid [place] Lungs: Clear to auscultation, Normal air movement Cardiovascular: Normal S1, Normal S2 Musculoskeletal: Normal sensory function, Normal motor function Skin: Dry, Intact Psych/Mental Status: Mental status NL, Mood NL Medications Current Medications Medications Dose Ordered Sig/Osiris Route Start Time Stop Time Status Last Admin Dose Admin Sodium Chloride 10 ml Q8HR IV 08/21/24 22:00 08/24/24 05:42 10 ML Sodium Chloride 1,000 ml @ 120 mls/hr Q8H20M IV 08/21/24 21:30 08/24/24 02:01 120 MLS/HR Acetaminophen 650 mg Q6HP PRN PO 08/21/24 21:30 Nitroglycerin 0.4 mg Q5MINP PRN SL 08/21/24 21:30 Morphine Sulfate 2 mg Q30M PRN IV 08/21/24 21:30 08/21/24 23:59 2 MG Acetaminophen/ Hydrocodone Bitart 1 tab Q4HPRN PRN PO 08/21/24 23:45 08/24/24 07:48 1 TAB Vancomycin HCl 0 ml @ 0 mls/hr UD IV 08/22/24 05:15 Ceftriaxone Sodium/Dextrose 50 ml @ 50 mls/hr Q12HR@09,21 IV 08/22/24 05:15 08/24/24 01:27 50 MLS/HR Ampicillin Sodium 2 gm/Sodium Chloride 100 ml @ 100 mls/hr Q4HR IV 08/22/24 06:00 08/24/24 10:23 100 MLS/HR Hydralazine HCl 10 mg Q6HP PRN IV 08/22/24 07:00 08/24/24 07:58 10 MG Lorazepam 1 mg ONCE PRN IV 08/22/24 10:45 08/23/24 11:55 1 MG Esmolol HCl 250 ml @ 0 mls/hr Q0M IV 08/23/24 08:30 08/23/24 22:13 30 MLS/HR Acyclovir Sodium 0 ml @ 0 mls/hr PER PHARMACY IV 08/23/24 14:15 Acyclovir Sodium 500 mg/Dextrose 110 ml @ 110 mls/hr Q8H IV 08/23/24 18:00 08/24/24 02:45 110 MLS/HR Vancomycin HCl 100 ml @ 100 mls/hr Q7H IV 08/23/24 19:00 08/24/24 01:56 100 MLS/HR Methylprednisolone Sodium Succinate 1000 mg/Sodium Chloride 66 ml @ 66 mls/hr DAILY@2100 IV 08/23/24 23:30 08/23/24 23:55 66 MLS/HR Diagnostic Test (Pha) 1 strip Q6HR 08/24/24 06:00 08/24/24 05:42 1 STRIP Laboratory Results Laboratory Tests 08/24/24 03:00 Chemistry Test 08/24/24 03:00 Albumin 3.1 g/dL (3.2-4.8) L Calcium Level 8.2 mg/dL (8.7-10.4) L Total Protein 5.8 g/dL (5.7-8.2) Coagulation Test 08/23/24 23:00 Prothrombin Time Diluted Pending Dilute PT Confirmation Ratio Pending Thrombin Time Pending Dilute Ebenezer Viper Venom (Lupus) Pending Lupus Anticoagulant Interpretation Pending LFT Test 08/24/24 03:00 Alanine Aminotransferase (ALT) 12 U/L (7-40) Alkaline Phosphatase 44 U/L (46-116) L Aspartate Amino Transferase (AST) 19 U/L (13-40) Total Bilirubin 0.3 mg/dL (0.2-1.0) Urinalysis Test 08/21/24 14:32 08/22/24 07:42 Urine Color Light-yellow (Yellow) Urine Clarity Clear (Clear) Urine pH 6.5 (5.0-9.0) Urine Specific [place] 1.015 (1.001-1.035) Urine Protein 1+ (Negative) H Urine Ketones Negative (Negative) Urine Blood 2+ /uL (Negative) H Urine Nitrite Negative (Negative) Urine Bilirubin Negative (Negative) Urine Urobilinogen Normal mg/dL (Negative) Urine Leukocyte Esterase Negative /uL (Negative) Urine RBC 49 /hpf (0 - 4) Urine Microscopic WBC 4 /HPF (0-5) Urine Squamous Epithelial Cells Few /hpf (<5) Urine Bacteria None seen /hpf (None Seen) Urine Mucus Few (None Seen) Urine Glucose Normal mg/dL (Normal) Urine Creatinine Pending Urine Protein/Creatinine Ratio Pending Urine Total Protein Pending Microbiology Microbiology Date/Time Source Procedure Growth Status 08/22/24 05:08 Cerebral Spinal Fluid Gram Stain - Final Resulted 08/22/24 05:08 Cerebral Spinal Fluid CSF Culture & Gram Stain (Tube 2) M - Preliminary Resulted 08/21/24 17:40 Blood Blood Culture - Preliminary NO GROWTH AFTER 48 HOURS OF INCUBATION. Resulted 08/21/24 14:32 Voided Urine Urine Culture - Final Complete Assessment/Plan Assessment/Plan Impression: -metabolic encephalopathy -rule out meningitis -lupus -marijuana use -? Recent CVA Plan: -events: Patient continues to have altered mental status, worsening tachycardia. ABG, labs not performed this a.m.. Lumbar puncture has high probability of being nondiagnostic knee gave out traumatic stick with increased RBC noted. Unable to find family contact and records. CT scan of the head with contrast rule out acute pathology given MRI can not be done at this time. -lorazepam IV p.r.n. anxiety/agitation -start esmolol drip to control patient's heart rate -social service consult for obtaining patient family contact -neurology consultation: Discussed case with Dr. Gerardo. Plans for MRI/MRA. Apparently at this time radiology is not willing to perform this test because patient was a rule out meningitis -continue current antibiotic therapy for meningitis -IV fluids -pancultures: Urine culture probably contaminated given greater than 3 colonies growing. Blood culture negative -repeat labs in a.m. Critical care time spent with patient discussing and formulating plan of care: 40 minutes. This does not include time spent performing procedures. This medical document was created using an electronic medical record system with [employer] dictation system. Although this document has been carefully reviewed, there may still be some phonetic and typographical errors. These areas are purely typographical due to imperfections of the software programs, and do not reflect any compromise in the patient's medical care. Plan discussed with: Other (Sister, boyfriend) My Orders Orders - AJ THOMAS NP Procedure Category Date Status Time * Rheumatology Consult CONS 08/23/24 Transmitted Transfer Orders XFER 08/23/24 Transmitted 13:28 Urine Bacterial TERA 08/23/24 Logged Culture 13:30 Acyclovir 10mg/Kg PHA 08/23/24 In Process Q8hr Per Rx (Zovirax) 14:15 * Radiologist Consult CONS 08/23/24 Transmitted 14:02 Communication Order ORDERS 08/23/24 Transmitted 14:32 Chest Xray 1 View XY 08/23/24 Resulted 16:46 Acyclovir Sod 50mg/Ml PHA 08/23/24 In Process (Zovirax) 18:00 Mrsa Screen TERA 08/23/24 In Process 19:30 * Senior Maintenance Machinist CONS 08/23/24 Transmitted Consult * Senior Maintenance Machinist CONS 08/24/24 Transmitted Consult Comprehensive LAB 08/25/24 Verified Metabolic Panel 04:00 Complete Blood Count LAB 08/25/24 Verified 04:00 Date of Service: Aug 24, 2024 Billing Provider: AJ THOMAS NP Common Visit Codes: 26473-[id number] CARE 30-74 MIN AJ THOMAS NP Aug 24, 2024 11:09
[2024-08-24] MEDS: SOD CHL 0.45% 1,000 ML IV SCH (11:40)
[2024-08-24] MEDS: fentaNYL CITRATE 100 MCG/2 ML VL ONE (15:17)
[2024-08-24] MEDS: MIDAZOLAM HCL 2MG/2ML 2ml VIAL (1mg/ml) ONE (15:18)
[2024-08-24] MEDS: LIDOCAINE 2%HCL (LOCAL ANESTH.) INJ 20ML MDV ONE (15:18)
--- NOTE | 2024-08-24 16:49 | DVH ---
XY LUMBAR PUNCTURE, HISTORY: Evaluate for meningitis COMPARISON: None PROCEDURE: After obtaining written informed consent, the patient was placed right latera decubitus on the interventional table. The patient's identity and the procedure were confirmed by the timeout pro cess. Under fluoroscopy, a midline approach to the L3-4 interlaminar space was selected and the overlying s kin anesthetized with several mL of 1% lidocaine. A 22G spinal needle was advanced under fluoroscopic vision into the thecal sac with return of bloddy CSF. 8 mL of CSF was collected in four aliquots an d sent to the clinical laboratory for testing per the referring physician's specifications. The needl e was removed and a bandage placed. The patient tolerated the procedure well without immediate compli cation. Fluoro Time: 0.5 minutes DAP 78 FINDINGS: Stored fluoroscopic images show the needle positioned with its tip in the spinal canal at t he level of L3-4. IMPRESSION: Lumbar puncture for CSF analysis, as detailed above. CSF was bloody.
[2024-08-24] MEDS: LABETALOL HCL 20 MG/4 ML VL IV PRN (18:00)
--- NOTE | 2024-08-24 18:02 | DVHINCON2 ---
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 Data gathered from medical records as patient was unable to provide much history. She states she may have been treated with IV steroids and some "infusion" while hospitalized at the other hospital. Per report from other providers she was hallucinating and making abnormal hand gestures yesterday. MRI brain did not suggest specific etiology other than subacute CVA. LP showed a traumatic tap. She did present with leukocytosis and was started on IV abx and IV acyclovir. Infectious workup pending. According to her grandmother she lost her insurance after a divorce and has had trouble receiving consistent care. She just got insurance once again however she rapidly decompensated. Allergies: Coded Allergies: NO KNOWN ALLERGIES (Unverified , 08/21/24) Current Medications Current Medications Medications (Trade) Dose Ordered Sig/Osiris Route PRN Reason Start Time Stop Time Status Last Admin Dexamethasone Sodium Phosphate (Decadron Injection) 4 mg Q8HR IV 08/23/24 22:00 08/23/24 22:18 DC Acyclovir Sodium 500 mg/Dextrose 110 ml @ 110 mls/hr Q8H IV 08/23/24 18:00 08/24/24 13:20 Vancomycin HCl 100 ml @ 100 mls/hr Q7H IV 08/23/24 19:00 08/24/24 11:36 Methylprednisolone Sodium Succinate (Solu Medrol) 1,000 mg DAILY IV 08/23/24 22:30 08/23/24 22:59 DC Methylprednisolone Sodium Succinate 1000 mg/Sodium Chloride 50 ml @ 50 mls/hr DAILY@2100 IV 08/23/24 23:30 08/23/24 23:13 DC Methylprednisolone Sodium Succinate 1000 mg/Sodium Chloride 66 ml @ 66 mls/hr DAILY@2100 IV 08/23/24 23:30 08/23/24 23:55 Diagnostic Test (Pha) (Accu-Chek Comfort Curve T) 1 strip Q6HR 08/24/24 06:00 08/24/24 13:19 Metoprolol Tartrate (Lopressor Tablet) 25 mg BID PO 08/24/24 22:00 Sodium Chloride 1,000 ml @ 75 mls/hr [id number] IV 08/24/24 11:15 08/24/24 11:40 Labetalol HCl (Labetalol HCl) 10 mg Q2HPRN PRN IV SBP>150 08/24/24 16:45 Vital Signs Vital Signs Date Time Temp Pulse Resp B/P (MAP) Pulse Ox O2 Delivery O2 Flow Rate FiO2 08/24/24 16:45 107 20 159/98 (118) 99 08/24/24 16:30 97.8 97.8 08/24/24 16:30 Nasal Cannula* 08 25 Physical Exam Appears somnolent, cushingoid appearance Responsive to commands, oriented to place, person, unsure of time EOMI, PERRLA No malar rash alopecia appreciated ttp and swelling over b/l knees Labs/Diagnostic Data Labs Test 08/24/24 17:00 08/24/24 13:18 08/24/24 11:30 08/24/24 03:00 Range/Units POC Glucose 134 H 70-106 mg/dl Urine Test Negative Negative White Blood Count 11.1 #H 4.4-10.8 10^3/uL Red Blood Count 3.54 L 4.0-5.20 10^6/uL Hemoglobin 8.9 L 12.2-16.2 g/dL Hematocrit 28.3 #L 36.0-46.0 % Mean Corpuscular Volume 80.0 80.0-100.0 fL Mean Corpuscular Hemoglobin 25.2 L 28.0-32.0 pg Mean Corpuscular Hemoglobin Concent 31.4 L 32.0-36.0 g/dL Red Cell Distribution Width 18.9 H 11.8-14.3 % Platelet Count 367 140-450 10^3/uL Mean Platelet Volume 8.0 6.9-10.8 fL Neutrophils (%) (Auto) 89.7 H 37.0-80.0 % Lymphocytes (%) (Auto) 5.6 L 10.0-50.0 % Monocytes (%) (Auto) 4.5 0.0-12.0 % Eosinophils (%) (Auto) 0.1 0.0-7.0 % Basophils (%) (Auto) 0.1 0.0-2.0 % Neutrophils # (Auto) 10.0 H 1.6-8.6 10 ^3/uL Lymphocytes # (Auto) 0.6 0.4-5.4 10 ^3/uL Monocytes # (Auto) 0.5 0-1.3 10 ^3/uL Eosinophils # (Auto) 0 0-0.8 10 ^3/uL Basophils # (Auto) 0 0-0.2 10 ^3/uL Nucleated Red Blood Cells 0.1 % Sodium Level 139 136-145 mmol/L Potassium Level 3.3 L 3.5-5.1 mmol/L Chloride Level 109 H 98-107 mmol/L Carbon Dioxide Level 18 L 20-31 mmol/L Anion Gap 12 5-15 Blood Urea Nitrogen 10 9-23 mg/dL Creatinine 0.32 #L 0.550-1.02 mg/dL Glomerular Filtration Rate Calc 144 >90 mL/min BUN/Creatinine Ratio 31.3 H 10.0-20.0 Serum Glucose 116 H 74-106 mg/dL Calcium Level 8.2 L 8.7-10.4 mg/dL Total Bilirubin 0.3 0.2-1.0 mg/dL Aspartate Amino Transferase (AST) 19 13-40 U/L Alanine Aminotransferase (ALT) 12 7-40 U/L Alkaline Phosphatase 44 L 46-116 U/L C-Reactive Protein High Sensitivity 6.87 H <1.0 mg/dL Total Protein 5.8 5.7-8.2 g/dL Albumin 3.1 L 3.2-4.8 g/dL Test 08/23/24 23:00 08/23/24 09:24 08/22/24 12:09 08/22/24 07:42 Range/Units Erythrocyte Sedimentation Rate 49 H 0-20 mm/hr Beta HCG, Quantitative 13.8 H 1.5-4.2 mIU/mL Blood Gas Specimen Type Arterial Blood Gas Sample Site Right radial Blood Gas Patient Temperature 37.0 Arterial Blood Date Drawn [id number] Arterial Blood pH 7.536 H 7.350-7.450 Arterial Blood Partial Pressure CO2 22.5 L 32.0-45.0 mmHg Arterial Blood Partial Pressure O2 50.7 *L 83.0-108.0 mmHg Arterial Blood HCO3 18.6 L 21.0-28.0 mmol/L Arterial Blood Oxygen Saturation 87.4 L 94.0-98.0 % Arterial Blood Base Excess -2.5 L -2.0-3.0 mmol/L Arterial Blood Oxyhemoglobin 86.7 L 94.0-98.0 % Arterial Blood Carboxyhemoglobin 0.4 L 0.5-1.5 % Arterial Blood Methemoglobin 0.4 0.0-1.5 % Mian Test Modified Blood Gas Total Hemoglobin 11.30 L 12.0-16.0 g/dL Blood Gas Modality Room air FiO2 % 21.0 Blood Gas Critical Value Read Back Yes Blood Gas Notified Whom Aki schwartz np Blood Gas Notified Time [id number] Blood Gas Notified By Aleta bardales rt Test 08/22/24 05:08 08/22/24 02:21 08/21/24 22:50 08/21/24 21:29 Range/Units CSF Tube Number Tube 3 CSF Appearance Bloody CSF WBC 750 H 0-5 CUMM CSF RBC 657303 H 0-5 CUMM CSF Protein (Tube 2) 2072.4 H 15-45 mg/dL CSF Mononuclear Cells 24 % CSF Polymorphonuclear Cells 76 % CSF Herpes Simplex I DNA (PCR) Negative Negative CSF Herpes Simplex II DNA (PCR) Negative Negative Differential Total Cells Counted 100.0 100 Neutrophils % (Manual) 78 37.0-80.0 Band Neutrophils % (Manual) 1 Lymphocytes % (Manual) 13 10.0-50.0 Monocytes % (Manual) 8 0-12 Eosinophils % (Manual) 0 0-7 Basophils % (Manual) 0 0.0-2.0 Metamyelocytes % (manual) 0 Myelocytes % (Manual) 0 Promyelocytes % (Manual) 0 Blast Cells % (Manual) 0 Reactive Lymphocytes 0 Platelet Estimate Increased Large Platelets Few Microcytosis Slight Macrocytosis Prothrombin Time 11.1 9.3-11.8 sec Prothrombin Time INR 1.05 0.9-1.15 Activated Partial Thromboplast Time 25.5 24.5-34.5 SEC Ammonia 16 11-32 umol/L Complement C3 39 L 82-167 mg/dL Influenza Type A Antigen Negative Negative Influenza Type B Antigen Negative Negative SARS-CoV-2 Antigen (Rapid) Negative NEGATIVE Magnesium Level 1.7 1.6-2.6 mg/dL Creatine Kinase 233 H 34-145 U/L Thyroid Stimulating Hormone (TSH) 0.75 0.55-4.78 uIU/mL Plasma/Serum Blood Alcohol < 3.0 <10 mg/dL Test 08/21/24 19:44 08/21/24 14:32 08/21/24 13:00 Range/Units Lactic Acid Level 4.5 *H 0.4-2.0 mmol/L Urine Color Light-yellow Yellow Urine Clarity Clear Clear Urine pH 6.5 5.0-9.0 Urine Specific [place] 1.015 1.001-1.035 Urine Protein 1+ H Negative Urine Ketones Negative Negative Urine Blood 2+ H Negative /uL Urine Nitrite Negative Negative Urine Bilirubin Negative Negative Urine Urobilinogen Normal Negative mg/dL Urine Leukocyte Esterase Negative Negative /uL Urine RBC 49 0 - 4 /hpf Urine Microscopic WBC 4 0-5 /HPF Urine Squamous Epithelial Cells Few <5 /hpf Urine Bacteria None seen None Seen /hpf Urine Mucus Few None Seen Urine Glucose Normal Normal mg/dL Urine Opiates Screen Pos NEGATIVE Urine Fentanyl Screen Neg NEGATIVE Urine Barbiturates Screen Neg NEGATIVE Urine Phencyclidine Screen Neg NEGATIVE Urine Amphetamines Screen Neg NEGATIVE Urine Benzodiazepines Screen Neg NEGATIVE Urine Cocaine Screen Neg NEGATIVE Urine Cannabinoids Screen Pos NEGATIVE Microbiology Date/Time Source Procedure Growth Status 08/23/24 19:30 Nose MRSA Screen - Final Complete 08/22/24 05:08 Cerebral Spinal Fluid Gram Stain - Final Resulted 08/22/24 05:08 Cerebral Spinal Fluid CSF Culture & Gram Stain (Tube 2) M - Preliminary Resulted 08/21/24 17:40 Blood Blood Culture - Preliminary NO GROWTH AFTER 48 HOURS OF INCUBATION. 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 -rule out sepsis, rule out cocci, TB, hep B and C, viral causes due to profound leukocytosis in setting of headaches, confusion - leukocytosis could be reactive from steroids recently received at other hospital however infection must be ruled out first -rule out meningitis vs encephalitis, consider repeat LP -recommend hematology consult as she recently had a low protein S level at [facility] - could be acquired from nephritic/nephrotic syndrome, however anticoagulation should still be considered -solumedrol 1g IV daily for 3-5 days -if test is negative, may need to consider IV cytoxan 1g while in house, first need to confirm from [facility] that she hasn't already been treated with cytoxan/rituxan -appreciate neuro recs -check APS antibodies -check KEVIN, EFFIE panel, trend complements, ESR, CRP Plan discussed with: Patient DINORA FOOTE MD Aug 24, 2024 18:02
[2024-08-24 20:04] LABS: Protein, CSF 1411.2 mg/dL (15-45)
[2024-08-24 20:10] LABS: Glucose, CSF < 4 mg/dL (40-70)
[2024-08-24] MEDS: ESMOLOL HCL 10MG/ML 250 ML IV SCH (21:00)
[2024-08-24] MEDS: METOPROLOL TARTRATE 25 MG TAB PO SCH (21:32)
[2024-08-24 21:51] LABS: CSF White Blood Cells 8000 CUMM (0-5); Description,CSF BLOODY
[2024-08-25] VITALS (95 sets, daily range): BP systolic 120–186; BP diastolic 65–112; PULSE 89–125; RESP 13–35; TEMP 98.2–98.7; O2SAT 92–100
[2024-08-25 03:49] LABS: Alanine Aminotransferase 29 U/L (7-40); Alkaline Phosphatase 63 U/L (46-116); Anion Gap 12 (5-15); Aspartate Aminotransferase 38 U/L (13-40); BUN/Creatinine Ratio 27.5 (10.0-20.0); Basophils # (auto) 0 10 ^3/uL (0-0.2); Basophils % (auto) 0.1 % (0.0-2.0); Bilirubin, Total 0.4 mg/dL (0.2-1.0); Blood Urea Nitrogen 11 mg/dL (9-23); Eosinophils # (auto) 0 10 ^3/uL (0-0.8); Nucleated Red Blood Cells % 0.1 %; Potassium 3.6 mmol/L (3.5-5.1); Sodium 137 mmol/L (136-145); Total Protein 5.9 g/dL (5.7-8.2)
[2024-08-25 03:54] LABS: Hematocrit 27.5 % (36.0-46.0); Hemoglobin 8.8 g/dL (12.2-16.2); Lymphocytes # (auto) 0.9 10 ^3/uL (0.4-5.4); Mean Corpuscular Hemoglobin 25.5 pg (28.0-32.0); Mean Corpuscular Hgb Conc. 31.9 g/dL (32.0-36.0); Mean Corpuscular Volume 80.1 fL (80.0-100.0); Monocytes # (auto) 0.6 10 ^3/uL (0-1.3); Monocytes % (auto) 4.4 % (0.0-12.0); Neutrophils # (auto) 13.1 10 ^3/uL (1.6-8.6); Neutrophils % (auto) 89.5 % (37.0-80.0); Platelet Count (auto) 559 10^3/uL (140-450); Red Blood Cells 3.43 10^6/uL (4.0-5.20); Red Cell Distribution Width 19.3 % (11.8-14.3); White Blood Cell 14.6 10^3/uL (4.4-10.8)
[2024-08-25 04:13] LABS: Albumin 3.1 g/dL (3.2-4.8); Calcium 8.3 mg/dL (8.7-10.4); Carbon Dioxide 17 mmol/L (20-31); Chloride 108 mmol/L (98-107); Glucose 160 mg/dL (74-106)
[2024-08-25] MEDS ORDERED: ATOR40TA52 PO (04:32)
[2024-08-25] MEDS ORDERED: PANT1INJ3 IV (04:32)
[2024-08-25] MEDS ORDERED: ACET-1881 PO (04:32)
[2024-08-25] MEDS ORDERED: CEPH500C PO (04:32)
[2024-08-25] MEDS ORDERED: HYDR200T36 PO (04:32)
[2024-08-25] MEDS ORDERED: PRE1T GT (04:32)
[2024-08-25] MEDS ORDERED: CLOP75TA70 PO (04:32)
[2024-08-25] MEDS ORDERED: ASPI325T6 PO (04:32)
[2024-08-25] MEDS: D5W/SOD CHL 0.45% 1,000 ML IV SCH (08:00)
--- NOTE | 2024-08-25 08:17 | DVHPN2 ---
Subjective Denies any symptoms. Reviewed: Care Plan, H&P, Labs, Medications Changes from previous H/P or p: No Changes General: Per HPI, Chills Eyes: No Pain, No Vision change, No Conjunctivae inflammation, No Eyelid inflammation, No Other, No Redness ENT: No Ear pain, No Ear discharge, No Nose pain, No Nose discharge, No Nose congestion, No Mouth pain, No Mouth swelling, No Throat pain, No Throat swelling, No Other Cardiovascular: Lt Headedness Respiratory: No Cough, No Dry, No Shortness of breath, No SOB with excertion, No Wheezing, No Hemoptysis, No Pleuritic Pain, No Sputum, No Other Gastrointestinal: No Nausea, No Vomiting, No Abdominal Pain, No Diarrhea, No Constipation, No Melena, No Hematochezia, No Other Genitourinary: No Dysuria, No Frequency, No Incontinence, No Hematuria, No Retention, No Other Musculoskeletal: back pain Objective Vitals Vital Signs Date Time Temp Pulse Resp B/P (MAP) Pulse Ox O2 Delivery O2 Flow Rate FiO2 08/25/24 06:28 182/100 08/25/24 06:15 96 23 99 08/25/24 05:40 Nasal Cannula* 08 2508/25/24 04:00 98.7 98.7 Intake/Output Intake and Output 08/25/24 07:00 Intake Total 2411 ml Output Total 2150 ml Balance 261 ml Intake Oral 300 ml IV Total 2111 ml Output Urine Total 2150 ml General Appearance: Alert, severe distress, Other (Alert and oriented x2) HEENT: Atraumatic, PERRLA Neck: Carotid [place] Lungs: Clear to auscultation, Normal air movement Cardiovascular: Normal S1, Normal S2 Musculoskeletal: Normal sensory function, Normal motor function Skin: Dry, Intact Psych/Mental Status: Mental status NL, Mood NL Medications Current Medications Medications Dose Ordered Sig/Osiris Route Start Time Stop Time Status Last Admin Dose Admin Sodium Chloride 10 ml Q8HR IV 08/21/24 22:00 08/25/24 05:58 10 ML Acetaminophen 650 mg Q6HP PRN PO 08/21/24 21:30 Nitroglycerin 0.4 mg Q5MINP PRN SL 08/21/24 21:30 Morphine Sulfate 2 mg Q30M PRN IV 08/21/24 21:30 08/21/24 23:59 2 MG Acetaminophen/ Hydrocodone Bitart 1 tab Q4HPRN PRN PO 08/21/24 23:45 08/25/24 04:51 1 TAB Vancomycin HCl 0 ml @ 0 mls/hr UD IV 08/22/24 05:15 Ceftriaxone Sodium/Dextrose 50 ml @ 50 mls/hr Q12HR@09,21 IV 08/22/24 05:15 08/24/24 21:33 50 MLS/HR Ampicillin Sodium 2 gm/Sodium Chloride 100 ml @ 100 mls/hr Q4HR IV 08/22/24 06:00 08/25/24 04:55 100 MLS/HR Lorazepam 1 mg ONCE PRN IV 08/22/24 10:45 08/23/24 11:55 1 MG Acyclovir Sodium 0 ml @ 0 mls/hr PER PHARMACY IV 08/23/24 14:15 Acyclovir Sodium 500 mg/Dextrose 110 ml @ 110 mls/hr Q8H IV 08/23/24 18:00 08/25/24 03:52 110 MLS/HR Vancomycin HCl 100 ml @ 100 mls/hr Q7H IV 08/23/24 19:00 08/25/24 05:57 100 MLS/HR Methylprednisolone Sodium Succinate 1000 mg/Sodium Chloride 66 ml @ 66 mls/hr DAILY@2100 IV 08/23/24 23:30 08/25/24 00:32 66 MLS/HR Diagnostic Test (Pha) 1 strip Q6HR 08/24/24 06:00 08/25/24 06:19 1 STRIP Sodium Chloride 1,000 ml @ 75 mls/hr [id number] IV 08/24/24 11:15 08/24/24 11:40 75 MLS/HR Labetalol HCl 10 mg Q2HPRN PRN IV 08/24/24 16:45 08/25/24 05:53 10 MG Esmolol HCl 250 ml @ 15 mls/hr [id number] IV 08/24/24 21:00 08/25/24 04:53 15 MLS/HR Labetalol HCl 200 mg Q12HR PO 08/25/24 10:00 UNV Fluconazole 100 ml @ 100 mls/hr 10,11 IV 08/25/24 10:00 UNV Nicardipine HCl 250 ml @ 50 mls/hr Q5H IV 08/25/24 08:00 UNV Laboratory Results Laboratory Tests 08/25/24 03:00 Chemistry Test 08/25/24 03:00 Albumin 3.1 g/dL (3.2-4.8) L Calcium Level 8.3 mg/dL (8.7-10.4) L Total Protein 5.9 g/dL (5.7-8.2) Coagulation Test 08/24/24 17:00 Protein S Antigen Pending Free Protein S Antigen Pending LFT Test 08/25/24 03:00 Alanine Aminotransferase (ALT) 29 U/L (7-40) Alkaline Phosphatase 63 U/L (46-116) Aspartate Amino Transferase (AST) 38 U/L (13-40) Total Bilirubin 0.4 mg/dL (0.2-1.0) Urinalysis Test 08/21/24 14:32 08/24/24 11:30 Urine Color Light-yellow (Yellow) Urine Clarity Clear (Clear) Urine pH 6.5 (5.0-9.0) Urine Specific [place] 1.015 (1.001-1.035) Urine Protein 1+ (Negative) H Urine Ketones Negative (Negative) Urine Blood 2+ /uL (Negative) H Urine Nitrite Negative (Negative) Urine Bilirubin Negative (Negative) Urine Urobilinogen Normal mg/dL (Negative) Urine Leukocyte Esterase Negative /uL (Negative) Urine RBC 49 /hpf (0 - 4) Urine Microscopic WBC 4 /HPF (0-5) Urine Squamous Epithelial Cells Few /hpf (<5) Urine Bacteria None seen /hpf (None Seen) Urine Mucus Few (None Seen) Urine Glucose Normal mg/dL (Normal) Urine Test Negative (Negative) Microbiology Microbiology Date/Time Source Procedure Growth Status 08/24/24 15:45 Cerebral Spinal Fluid Gram Stain - Final Resulted 08/24/24 15:45 Cerebral Spinal Fluid CSF Culture & Gram Stain (Tube 2) M Pending Resulted 08/23/24 19:30 Nose MRSA Screen - Final Complete 08/21/24 17:40 Blood Blood Culture - Preliminary NO GROWTH AFTER 72 HOURS OF INCUBATION. Resulted 08/21/24 14:32 Voided Urine Urine Culture - Final Complete Labs and/or images reviewed: Labs reviewed by me, Image(s) reviewed by me Assessment/Plan Assessment/Plan Impression: -metabolic encephalopathy -rule out meningitis -lupus -marijuana use -subacute CVA -? lupus encephalitis -hypertensive crisis Plan: -events: MRI reviewed. Repeat LP reviewed. Neurologically, patient has clinical improvement, alert and oriented x3. Blood pressure continues to be uncontrolled despite esmolol drip. Discussed case with Neurology and Rheumatology yesterday as well as manager of supply chain. Continue empiric antibiotic therapy, add antifungal, antiviral on board. Gold QuantiFERON pending. Cocci antibody pending -start nicardipine drip. Increase p.o. labetalol to 200 mg p.o. twice a day. Wean esmolol drip -PICC line -social service consult for obtaining patient family contact -neurology consultation: Recommendations reviewed -rheumatology consultation: -continue current antimicrobials -start PPN once line has been placed -pancultures: Cultures negative -repeat labs in a.m. Critical care time spent with patient discussing and formulating plan of care: 40 minutes. This does not include time spent performing procedures. This medical document was created using an electronic medical record system with [employer] dictation system. Although this document has been carefully reviewed, there may still be some phonetic and typographical errors. These areas are purely typographical due to imperfections of the software programs, and do not reflect any compromise in the patient's medical care. Plan discussed with: Patient, Other (RN) My Orders Orders - AJ THOMAS NP Procedure Category Date Status Time * Certified Medication Aide CONS 08/24/24 Transmitted Consult Sod Chl 0.45% (Sodium PHA 08/24/24 In Process Chloride 0.45% Via 11:15 Communication Order ORDERS 08/24/24 Transmitted 11:07 Hepatitis C Antibody LAB 08/24/24 In Process 12:18 Protein S-Antigen LAB 08/24/24 In Process Total & Free 12:18 * Hematology/Oncology CONS 08/24/24 Transmitted Consult 12:18 Quantiferon-Tb Gold LAB 08/24/24 In Process 12:27 Lumbar Puncture XY 08/24/24 Resulted 15:56 Labetalol Hcl PHA 08/24/24 In Process (Labetalol Hcl) 16:45 Communication Order ORDERS 08/24/24 Transmitted 16:43 Csf Culture W/ Gram TERA 08/24/24 In Process Stain 18:44 Cryptococcus Antigen LAB 08/24/24 In Process CSF 18:44 Esmolol Hcl-Ns PHA 08/24/24 In Process 10mg/Ml (Brevibloc) 21:00 Labetalol Hcl Tablet PHA 08/25/24 Logged (Normodyne Tablet) 10:00 Complete Blood Count LAB 08/26/24 Verified 05:00 Complete Blood Count LAB 08/27/24 Verified 05:00 Complete Blood Count LAB 08/28/24 Verified 05:00 Comprehensive LAB 08/26/24 Verified Metabolic Panel 05:00 Comprehensive LAB 08/27/24 Verified Metabolic Panel 05:00 Comprehensive LAB 08/28/24 Verified Metabolic Panel 05:00 Obtain Mr From Other ORDERS 08/26/24 Transmitted Facility 04:00 Fluconazole PHA 08/25/24 Logged 200mg/100ml (Diflucan 10:00 Nicardipine PHA 08/25/24 Logged 25mg/250ml Bag Kit 08:00 * Picc Line Consult CONS 08/25/24 Transmitted 08:00 Date of Service: Aug 25, 2024 Billing Provider: AJ THOMAS NP Common Visit Codes: [id number] CARE 30-74 MIN AJ THOMAS NP Aug 25, 2024 08:17
[2024-08-25] MEDS: LABETALOL HCL 200 MG TAB PO SCH (09:31)
[2024-08-25 10:06] LABS: Complement C3 36 mg/dL (82-167)
[2024-08-25 10:12] LABS: INR 1.11 (0.9-1.15); Partial Thromboplastin Time 25.1 SEC (24.5-34.5); Prothrombin Time 11.6 sec (9.3-11.8)
[2024-08-25] MEDS: LIDOCAINE 1% (LOCAL ANESTH.) PF 5ml SDV ID ONE (12:00)
[2024-08-25 12:07] LABS: Anti-Centromere B Antibody <0.2 AI (0.0-0.9); Anti-Jo-1 Antibody <0.2 AI (0.0-0.9); Anti-dsDNA Antibody 73 IU/mL (0-9); Antichromatin Antibody >8.0 AI (0.0-0.9); Antiscleroderma-70 Antibody <0.2 AI (0.0-0.9); RNP Antibody 7.3 AI (0.0-0.9); Sjogren's Anti-SS-A Antibody 0.3 AI (0.0-0.9); Sjogren's Anti-SS-B Antibody <0.2 AI (0.0-0.9); Smith Antibody >8.0 AI (0.0-0.9)
[2024-08-25] MEDS: FLUCONAZOLE 200MG/100ML 100 ML IV SCH (13:00)
--- NOTE | 2024-08-25 15:24 | DVHPN2 ---
Progress Note Date Seen: Aug 25, 2024 Has the PT tested + for MRSA If YES, has PT been informed?: No Medical Necessity Reason Pt with a Central, PICC or Fol: No Subjective Patient reports: Feels better Changes from previous H/P or p: Changes (improvement in mentation) Review of Systems: Not Done Objective vital signs Vital Sign Date Time Temp Pulse Resp B/P (MAP) Pulse Ox O2 Delivery O2 Flow Rate FiO2 08/25/24 15:10 90 173/103 08/25/24 14:00 17 99 08/25/24 12:30 Nasal Cannula* 08 2508/25/24 11:45 98.2 98.2 Total Intake and Output 08/24/24 08/24/24 08/25/24 15:00 23:00 07:00 Intake Total 790 ml 495 ml 1186 ml Output Total 950 ml 1200 ml Balance 790 ml -455 ml -14 ml medications Current Medications Medications Dose Ordered Sig/Osiris Route Start Time Stop Time Status Last Admin Dose Admin Sodium Chloride 10 ml Q8HR IV 08/21/24 22:00 08/25/24 14:31 10 ML Acetaminophen 650 mg Q6HP PRN PO 08/21/24 21:30 Nitroglycerin 0.4 mg Q5MINP PRN SL 08/21/24 21:30 Morphine Sulfate 2 mg Q30M PRN IV 08/21/24 21:30 08/21/24 23:59 2 MG Acetaminophen/ Hydrocodone Bitart 1 tab Q4HPRN PRN PO 08/21/24 23:45 08/25/24 13:39 1 TAB Vancomycin HCl 0 ml @ 0 mls/hr UD IV 08/22/24 05:15 Ceftriaxone Sodium/Dextrose 50 ml @ 50 mls/hr Q12HR@ IV 08/22/24 05:15 08/25/24 08:43 50 MLS/HR Ampicillin Sodium 2 gm/Sodium Chloride 100 ml @ 100 mls/hr Q4HR IV 08/22/24 06:00 08/25/24 12:20 100 MLS/HR Lorazepam 1 mg ONCE PRN IV 08/22/24 10:45 08/23/24 11:55 1 MG Acyclovir Sodium 0 ml @ 0 mls/hr PER PHARMACY IV 08/23/24 14:15 Acyclovir Sodium 500 mg/Dextrose 110 ml @ 110 mls/hr Q8H IV 08/23/24 18:00 08/25/24 10:32 110 MLS/HR Vancomycin HCl 100 ml @ 100 mls/hr Q7H IV 08/23/24 19:00 08/25/24 14:47 100 MLS/HR Methylprednisolone Sodium Succinate 1000 mg/Sodium Chloride 66 ml @ 66 mls/hr DAILY@2100 IV 08/23/24 23:30 08/25/24 00:32 66 MLS/HR Diagnostic Test (Pha) 1 strip Q6HR 08/24/24 06:00 08/25/24 13:00 1 STRIP Labetalol HCl 10 mg Q2HPRN PRN IV 08/24/24 16:45 08/25/24 12:25 10 MG Esmolol HCl 250 ml @ 15 mls/hr [id number] IV 08/24/24 21:00 08/25/24 04:53 15 MLS/HR Labetalol HCl 200 mg Q12HR PO 08/25/24 10:00 08/25/24 09:31 200 MG Fluconazole 100 ml @ 100 mls/hr 10,11 IV 08/25/24 10:00 08/25/24 14:00 100 MLS/HR Nicardipine HCl 250 ml @ 50 mls/hr Q5H IV 08/25/24 08:00 08/25/24 15:10 50 MLS/HR Dextrose/Sodium Chloride 1,000 ml @ 75 mls/hr [id number] IV 08/25/24 09:30 08/25/24 08:00 75 MLS/HR Sodium Chloride 10 ml QSHIFT@10,22 IV 08/25/24 22:00 laboratory and microbiology Laboratory Tests 08/25/24 03:00 Test 08/25/24 03:00 Range/Units Serum Glucose 160 H 74-106 mg/dL Microbiology Date/Time Source Procedure Growth Status 08/24/24 15:45 Cerebral Spinal Fluid Gram Stain - Final Resulted 08/24/24 15:45 Cerebral Spinal Fluid CSF Culture & Gram Stain (Tube 2) M - Preliminary Resulted 08/23/24 19:30 Nose MRSA Screen - Final Complete 08/21/24 17:40 Blood Blood Culture - Preliminary NO GROWTH AFTER 72 HOURS OF INCUBATION. Resulted 08/21/24 14:32 Voided Urine Urine Culture - Final Complete Labs and/or images reviewed: Labs reviewed by me Problem List/Assessment/Plan Problems(with codes): (1) Lupus cerebritis (2) Systemic lupus erythematosus (3) Sepsis Problem List/Assessment/Plan solumedrol 1g daily (day 3/3) f/u infectious workup need to confirm if she received cytotoxic therapy already from [facility] - please follow up with fiance and gather hospital records -if ID workup negative for source of infection, presume lupus cerebritis and will need IV cytoxan while hospitalized to prevent repeat flares Plan discussed with: Other (Aki Schwartz NP) DINORA FOOTE MD Aug 25, 2024 15:23
[2024-08-25] MEDS ORDERED: CLINIMIX PER PHARMACY 0 ML IV SCH (17:15)
[2024-08-25] MEDS ORDERED: DEXTROSE (50%) 50ML SYRG IV SCH (18:30)
--- NOTE | 2024-08-25 19:48 | DVHPN2 ---
Progress Note - Dictate Date Seen: Aug 25, 2024 Has the PT tested + for MRSA If YES, has PT been informed?: No Medical Necessity Reason Pt with a Central, PICC or Fol: No Subjective Ms. Ernandez is a 29 years old right-handed female with a history of lupus, he was brought to the [facility] on 08/21/2024 with a chief company of intense headache. I have seen and examined the patient, discussed with her nurse, she was awake, oriented to person company place, she knows year and the month, she was follow comments, she was doing the headache, reports doing okay CSF profile, 08/22/2024: Bloody, RBC: 428,311, WBC: 750, mono: 24%, poly: 76%, protein: 2072.4 CSF, 08/24/24: Bloody, RBC: 2,100,000 WBC: 8000, mono: poly: 92, protein: 1411.2, glucose: <4 C4, 08/22/2019 5:4, C3, 08/22/2019 5:39 a.m. UDS, 08/21/2024: Opiates, cannabinoids, Plasma alcohol, 08/21/2024: <3 Urinalysis, 08/21/2024: WBC: Four, urine leukocyte esterase: Negative WBC/HB/PLT/MCV, 08/22/2024: 26.7/10.2/571/78.6 ESR, 08/21/2024: 24, 08/22/2024: 25, : 49 CMP, 08/22/2024: Unremarkable CRP, 08/21/2024: 0.68, 08/22/2024: 1.73, 08/23/2019 5:7.11 TSH, 08/21/2024: 0.75 CT head, 08/21/2024: No CT evidence of acute intracranial abnormality MRI head, 08/23/2024: Limited MR study demonstrates a small area of curvilinear cortical restricted diffusion in the left parietal lobe which May relate to an acute to subacute infarct. There is no evidence of hemorrhage. There is no significant mass effect. MRA head, 08/23/2024: Limited exam as the posterior cranial fossa is not completely imaged. No evidence of hemodynamically significant intracranial stenosis, proximal occlusion, AVM or aneurys vital signs Vital Sign Date Time Temp Pulse Resp B/P (MAP) Pulse Ox O2 Delivery O2 Flow Rate FiO2 08/25/24 18:46 100 16 141/77 (98) 98 08/25/24 18:00 Nasal Cannula* 08 2508/25/24 16:30 98.6 98.6 Total Intake and Output 08/24/24 08/24/24 08/25/24 15:00 23:00 07:00 Intake Total 790 ml 495 ml 1186 ml Output Total 950 ml 1200 ml Balance 790 ml -455 ml -14 ml medications Current Medications Medications Dose Ordered Sig/Osiris Route Start Time Stop Time Status Last Admin Dose Admin Sodium Chloride 10 ml Q8HR IV 08/21/24 22:00 08/25/24 14:31 10 ML Acetaminophen 650 mg Q6HP PRN PO 08/21/24 21:30 Nitroglycerin 0.4 mg Q5MINP PRN SL 08/21/24 21:30 Morphine Sulfate 2 mg Q30M PRN IV 08/21/24 21:30 08/21/24 23:59 2 MG Acetaminophen/ Hydrocodone Bitart 1 tab Q4HPRN PRN PO 08/21/24 23:45 08/25/24 13:39 1 TAB Vancomycin HCl 0 ml @ 0 mls/hr UD IV 08/22/24 05:15 Ceftriaxone Sodium/Dextrose 50 ml @ 50 mls/hr Q12HR@09,21 IV 08/22/24 05:15 08/25/24 08:43 50 MLS/HR Ampicillin Sodium 2 gm/Sodium Chloride 100 ml @ 100 mls/hr Q4HR IV 08/22/24 06:00 08/25/24 17:11 100 MLS/HR Lorazepam 1 mg ONCE PRN IV 08/22/24 10:45 08/23/24 11:55 1 MG Acyclovir Sodium 0 ml @ 0 mls/hr PER PHARMACY IV 08/23/24 14:15 Acyclovir Sodium 500 mg/Dextrose 110 ml @ 110 mls/hr Q8H IV 08/23/24 18:00 08/25/24 18:24 110 MLS/HR Vancomycin HCl 100 ml @ 100 mls/hr Q7H IV 08/23/24 19:00 08/25/24 14:47 100 MLS/HR Methylprednisolone Sodium Succinate 1000 mg/Sodium Chloride 66 ml @ 66 mls/hr DAILY@2100 IV 08/23/24 23:30 08/25/24 00:32 66 MLS/HR Labetalol HCl 10 mg Q2HPRN PRN IV 08/24/24 16:45 08/25/24 12:25 10 MG Esmolol HCl 250 ml @ 15 mls/hr [id number] IV 08/24/24 21:00 08/25/24 04:53 15 MLS/HR Labetalol HCl 200 mg Q12HR PO 08/25/24 10:00 08/25/24 09:31 200 MG Fluconazole 100 ml @ 100 mls/hr 10,11 IV 08/25/24 10:00 08/25/24 14:00 100 MLS/HR Nicardipine HCl 250 ml @ 50 mls/hr Q5H IV 08/25/24 08:00 08/25/24 15:10 50 MLS/HR Dextrose/Sodium Chloride 1,000 ml @ 75 mls/hr [id number] IV 08/25/24 09:30 08/25/24 08:00 75 MLS/HR Sodium Chloride 10 ml QSHIFT@10,22 IV 08/25/24 22:00 Amino Acids 0 ml @ 0 mls/hr PER PHARMACY IV 08/25/24 17:15 Diagnostic Test (Pha) 1 strip Q6HR 08/26/24 00:00 Insulin Human Regular FOLLOW SLIDING SCALE Q6HR SC 08/26/24 00:00 Dextrose 50 ml UD IV 08/25/24 18:30 Amino Acids/ Electrolytes/ Dextrose 1,000 ml @ 41 mls/hr DAILY@2200 IV 08/25/24 22:00 objective General: the patient is well developed and nourished. No acute distress. MENTAL STATUS: Subjective SPEECH, LANGUAGE, HIGHER CORTICAL FUNCTION: no aphasia or dysathria. CRANIAL NERVES: Pupils are equal, round and reactive. EOMs full and conjugate. Facial sensation intact in all three divisions bilaterally. Mandibular strength intact. Facial muscles symmetrical and strength intact. SENSATION: Sensation to touch and pinprick is fine MOTOR: Normal tone in the upper and lower extremity. Normal muscle bulk. No fasciculations. Mild tremors symmetrically in both upper extremity, he moves the arms and legs REFLEXES: Deep tendon reflexes are symmetrical. No pathological reflexes. CEREBELLAR/COORDINATION: Deferred GAIT/STATION: deferred laboratory and microbiology Laboratory Tests 08/25/24 03:00 Test 08/25/24 03:00 Range/Units Serum Glucose 160 H 74-106 mg/dL Problem List Acute headache with abnormal CSF profile ? Meningitis, ? Bacterial meningitis ? SAH ? 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 Although this document has been carefully reviewed, there may still be some phonetic and typographical errors. These areas are purely typographical due to imperfections of the software programs, and do not reflect any compromise in the patient's medical care. Prognosis poor Plan discussed with: Other PHILIP WELLS MD Aug 25, 2024 19:48
[2024-08-25] MEDS: SODIUM CHLOR 0.9% PF (SALINE LOCK) 10ML VIAL/SYR IV SCH (22:00)
[2024-08-25] MEDS: AMINO ACID INFUSION IN D10W 1,000 ML IV SCH (22:45)
[2024-08-26] VITALS (97 sets, daily range): BP systolic 112–177; BP diastolic 57–95; PULSE 83–120; RESP 11–24; TEMP 97.8–98.7; O2SAT 92–100
[2024-08-26] MEDS: ACCU-CHEK COMFORT CURVE STRIP VI SCH
[2024-08-26] MEDS: InsuLIN REG 1unit/0.01ml Soln (100units/ml) SC SCH (00:29)
[2024-08-26 04:11] LABS: Basophils # (auto) 0 10 ^3/uL (0-0.2); Eosinophils # (auto) 0 10 ^3/uL (0-0.8); Lymphocytes # (auto) 0.9 10 ^3/uL (0.4-5.4); Lymphocytes % (auto) 7.8 % (10.0-50.0); Monocytes # (auto) 0.4 10 ^3/uL (0-1.3); Monocytes % (auto) 3.3 % (0.0-12.0); Nucleated Red Blood Cells % 0.1 %
[2024-08-26 04:15] LABS: Basophils % (auto) 0.1 % (0.0-2.0); Hematocrit 28.8 % (36.0-46.0); Hemoglobin 9.4 g/dL (12.2-16.2); Mean Corpuscular Hemoglobin 25.9 pg (28.0-32.0); Mean Corpuscular Hgb Conc. 32.7 g/dL (32.0-36.0); Mean Corpuscular Volume 79.2 fL (80.0-100.0); Neutrophils # (auto) 10.1 10 ^3/uL (1.6-8.6); Neutrophils % (auto) 88.8 % (37.0-80.0); Platelet Count (auto) 470 10^3/uL (140-450); Red Blood Cells 3.63 10^6/uL (4.0-5.20); Red Cell Distribution Width 18.9 % (11.8-14.3); White Blood Cell 11.4 10^3/uL (4.4-10.8)
[2024-08-26 04:31] LABS: Albumin 3.4 g/dL (3.2-4.8); Alkaline Phosphatase 68 U/L (46-116); Anion Gap 10 (5-15); BUN/Creatinine Ratio 23.3 (10.0-20.0); Blood Urea Nitrogen 14 mg/dL (9-23); Carbon Dioxide 24 mmol/L (20-31); Chloride 105 mmol/L (98-107); Magnesium 2.2 mg/dL (1.6-2.6); Sodium 139 mmol/L (136-145); Total Protein 6.6 g/dL (5.7-8.2); Triglycerides 106 mg/dL (< 150)
[2024-08-26 04:33] LABS: Alanine Aminotransferase 331 U/L (7-40); Aspartate Aminotransferase 324 U/L (13-40); Bilirubin, Total 0.3 mg/dL (0.2-1.0); Glucose 234 mg/dL (74-106); Potassium 3.1 mmol/L (3.5-5.1)
--- NOTE | 2024-08-26 10:46 | DVHPN2 ---
Assessment/Plan Assessment/Plan ICU Progress note 29-year-old female with SLE admitted for altered mental status transfer from outside hospital. Seen today during rounds, seen by neurology, Rheumatology. on pulse dose and empiric meningitis abx Physical exam somnolent oriented to self time and place neck tenderness with active movement s1 s2 RRR clear breath sounds abdomen soft weakly moving RUE and RLE, not moving LUE LLE, however seen holding phone with both hands Labs imaging and EKG reviewed Assessment and plan acute toxic/ metabolic encephalopathy bacterial meningitis? RN DIALYSIS vasculitis? subarachnoid hemorrhage? systemic lupus erythematosus lupus encephalitis margin hypotension acute urinary retention subacute CVA diabetes poor oral intake continue with nicardipine drip Increase p.o. antihypertensive Neuro recs appreciated Rheumatology recs appreciated Continue with empiric antibiotic for meningitis, acyclovir, ampicillin, ceftriaxone, vancomycin, fluconazole Pulse dose steroid Bacterial meningitis precaution infectious disease consult insulin sliding scale nutrition consult Lines PICC line [place] Diet PPN DVT prophylaxis hold GI prophylaxis Protonix Condition critical poor prognosis Full code 87 minutes of critical care time spent Plan discussed with: Patient, Other My Orders Orders - ALEX ALEXANDER MD Procedure Category Date Status Time Amlodipine Tablet PHA 08/26/24 Verified (Norvasc Tablet) 10:30 Amlodipine Tablet PHA 08/27/24 Verified (Norvasc Tablet) 10:00 Basic Metabolic Panel LAB 08/27/24 Verified 04:00 Complete Blood Count LAB 08/27/24 Verified 04:00 Magnesium LAB 08/27/24 Verified 04:00 Phosphorus LAB 08/27/24 Verified 04:00 Date of Service: Aug 26, 2024 Billing Provider: ALEX ALEXANDER MD Common Visit Codes: [id number] CARE 30-74 MIN, [id number] CARE-EACH +30 MIN ALEX ALEXANDER MD Aug 26, 2024 10:46
[2024-08-26] MEDS: amLODIPine BESYLATE 5 MG TAB PO ONE (11:54)
[2024-08-26] MEDS: POTASSIUM EFFERVESENT TAB 25 MEQ PO ONE (11:55)
[2024-08-26 14:07] LABS: Dilute Prothrombin Time(dPT) 35.8 sec (0.0-47.6); Lupus Interpretation Comment: (.); PTT-LA 31.2 sec (0.0-43.5); Thrombin Time 16.6 sec (0.0-23.0); dPT Confirm Ratio 1.23 Ratio (0.00-1.34); dRVVT 38.8 sec (0.0-47.0)
[2024-08-26] MEDS: POTASSIUM PHOSPHATE 26.4 MEQ in SODIUM CHL 0.9% 100 ML IV ONE (14:10)
[2024-08-26] MEDS: KETOROLAC TROMETH 30 MG/ML 1ML VIAL IV PRN (15:32)
--- NOTE | 2024-08-26 19:18 | DVHINCON2 ---
"Date of service: Aug 26, 2024 Allergies: Coded Allergies: NO KNOWN ALLERGIES (Unverified , 08/21/24) Home Meds Reported Medications Prednisone (PREDNISONE) 1 Mg Tb, 5 MG GT, TAB 08/25/24 Pantoprazole Sodium (PANTOPRAZOLE SODIUM) 40 Mg Inj, 40 MG IV, INJ 08/25/24 Hydroxychloroquine Sulfate (Hydroxychloroquine Sulfat) 200 Mg Tab, 200 MG PO for 30 Days, MG 08/25/24 Atorvastatin Calcium (ATORVASTATIN CALCIUM) 40 Mg Tab, 1 TAB PO DAILY, #30 TAB 5 Refills 08/25/24 Acetaminophen (Acetaminophen) 325 Mg Tab, 500 MG PO Q4HP PRN for MILD PAIN for 30 Days, MG 0 Refills 08/25/24 Aspirin (Aspirin) 325 Mg Tab, 81 MG PO DAILY for 30 Days, MG 08/25/24 Clopidogrel Bisulfate (CLOPIDOGREL) 75 Mg Tab, 75 MG PO DAILY for 30 Days, MG 08/25/24 Cephalexin Monohydrate (Cephalexin) 500 Mg Cap, 500 MG PO Q6HR, MG 08/25/24 Current Medications Current Medications Medications (Trade) Dose Ordered Sig/Osiris Route PRN Reason Start Time Stop Time Status Last Admin Sodium Chloride (Saline Lock Ns) 10 ml QSHIFT@10,22 IV 08/25/24 22:00 08/26/24 09:27 Diagnostic Test (Pha) (Accu-Chek Comfort Curve T) 1 strip Q6HR 08/26/24 00:00 08/26/24 18:26 Insulin Human Regular (InsuLIN R) FOLLOW SLIDING SCALE Q6HR SC 08/26/24 00:00 08/26/24 18:33 Amino Acids/ Electrolytes/ Dextrose 1,000 ml @ 41 mls/hr DAILY@2200 IV 08/25/24 22:00 08/25/24 22:45 Amlodipine Besylate (Norvasc Tablet) 5 mg DAILY PO 08/27/24 10:00 Pantoprazole Sodium (Protonix) 40 mg DAILY IV 08/27/24 10:00 Methylprednisolone Sodium Succinate (Solu Medrol) 60 mg BID IV 08/26/24 22:00 Ketorolac Tromethamine (Toradol Injection) 30 mg Q6HPRN PRN IV SEVERE PAIN (7-10 PAIN SCALE) 08/26/24 15:00 08/31/24 14:59 08/26/24 15:32 Vital Signs Vital Signs Date Time Temp Pulse Resp B/P (MAP) Pulse Ox O2 Delivery O2 Flow Rate FiO2 08/26/24 18:30 95 20 156/93 (114) 99 08/26/24 18:00 Nasal Cannula* 2 28 08/26/24 16:00 97.8 97.8 Labs/Diagnostic Data Labs Test 08/26/24 18:17 08/26/24 05:00 08/26/24 03:10 08/25/24 11:49 Range/Units POC Glucose 196 H 70-106 mg/dl White Blood Count 11.4 H 4.4-10.8 10^3/uL Red Blood Count 3.63 L 4.0-5.20 10^6/uL Hemoglobin 9.4 L 12.2-16.2 g/dL Hematocrit 28.8 L 36.0-46.0 % Mean Corpuscular Volume 79.2 L 80.0-100.0 fL Mean Corpuscular Hemoglobin 25.9 L 28.0-32.0 pg Mean Corpuscular Hemoglobin Concent 32.7 32.0-36.0 g/dL Red Cell Distribution Width 18.9 H 11.8-14.3 % Platelet Count 470 H 140-450 10^3/uL Mean Platelet Volume 7.8 6.9-10.8 fL Neutrophils (%) (Auto) 88.8 H 37.0-80.0 % Lymphocytes (%) (Auto) 7.8 L 10.0-50.0 % Monocytes (%) (Auto) 3.3 0.0-12.0 % Eosinophils (%) (Auto) 0.0 0.0-7.0 % Basophils (%) (Auto) 0.1 0.0-2.0 % Neutrophils # (Auto) 10.1 H 1.6-8.6 10 ^3/uL Lymphocytes # (Auto) 0.9 0.4-5.4 10 ^3/uL Monocytes # (Auto) 0.4 0-1.3 10 ^3/uL Eosinophils # (Auto) 0 0-0.8 10 ^3/uL Basophils # (Auto) 0 0-0.2 10 ^3/uL Nucleated Red Blood Cells 0.1 % Sodium Level 139 136-145 mmol/L Potassium Level 3.1 L 3.5-5.1 mmol/L Chloride Level 105 98-107 mmol/L Carbon Dioxide Level 24 20-31 mmol/L Anion Gap 10 5-15 Blood Urea Nitrogen 14 9-23 mg/dL Creatinine 0.60 # 0.550-1.02 mg/dL Glomerular Filtration Rate Calc 124 >90 mL/min BUN/Creatinine Ratio 23.3 H 10.0-20.0 Serum Glucose 234 H 74-106 mg/dL Calcium Level 8.0 L 8.7-10.4 mg/dL Phosphorus Level 2.0 L 2.4-5.1 mg/dL Magnesium Level 2.2 1.6-2.6 mg/dL Total Bilirubin 0.3 0.2-1.0 mg/dL Aspartate Amino Transferase (AST) 324 H 13-40 U/L Alanine Aminotransferase (ALT) 331 H 7-40 U/L Alkaline Phosphatase 68 46-116 U/L Total Protein 6.6 5.7-8.2 g/dL Albumin 3.4 3.2-4.8 g/dL Triglycerides Level 106 < 150 mg/dL Vancomycin Level Trough 11.9 H 5-10 ug/mL Test 08/25/24 08:57 08/24/24 17:00 08/24/24 15:45 08/24/24 11:30 Range/Units Prothrombin Time 11.6 9.3-11.8 sec Prothrombin Time INR 1.11 0.9-1.15 Activated Partial Thromboplast Time 25.1 24.5-34.5 SEC CSF Tube Number #3 CSF Appearance Bloody CSF WBC 8000 H 0-5 CUMM CSF RBC [id number] H 0-5 CUMM CSF Protein (Tube 2) 1411.2 H 15-45 mg/dL CSF Mononuclear Cells 8 % CSF Polymorphonuclear Cells 92 % CSF Glucose < 4 *L 40-70 mg/dL Urine Test Negative Negative Test 08/24/24 03:00 08/23/24 23:00 08/23/24 09:24 08/22/24 12:09 Range/Units C-Reactive Protein High Sensitivity 6.87 H <1.0 mg/dL Erythrocyte Sedimentation Rate 49 H 0-20 mm/hr Prothrombin Time Diluted 35.8 0.0-47.6 sec Dilute PT Confirmation Ratio 1.23 0.00-1.34 Ratio Thrombin Time 16.6 0.0-23.0 sec Lupus Anticoagulant PTT 31.2 0.0-43.5 sec Dilute Ebenezer Viper Venom (Lupus) 38.8 0.0-47.0 sec Lupus Anticoagulant Interpretation Comment: . Anti-Nuclear Antibody Comment Comment . AYAKA-1 Antibody <0.2 0.0-0.9 AI SS-A/Ro Antibody 0.3 0.0-0.9 AI SS-B/La Antibody <0.2 0.0-0.9 AI Sm Antibody >8.0 H 0.0-0.9 AI FREIGHT REPRESENTATIVE Antibody 7.3 H 0.0-0.9 AI Scl-70 (Scleroderma) Antibody <0.2 0.0-0.9 AI Anti-Double Strand DNA Antibody 73 H 0-9 IU/mL Chromatin Antibody >8.0 H 0.0-0.9 AI Centromere B Antibody <0.2 0.0-0.9 AI Complement C3 36 L 82-167 mg/dL Complement C4 3 L 12-38 mg/dL Beta HCG, Quantitative 13.8 H 1.5-4.2 mIU/mL Blood Gas Specimen Type Arterial Blood Gas Sample Site Right radial Blood Gas Patient Temperature 37.0 Arterial Blood Date Drawn [id number] Arterial Blood pH 7.536 H 7.350-7.450 Arterial Blood Partial Pressure CO2 22.5 L 32.0-45.0 mmHg Arterial Blood Partial Pressure O2 50.7 *L 83.0-108.0 mmHg Arterial Blood HCO3 18.6 L 21.0-28.0 mmol/L Arterial Blood Oxygen Saturation 87.4 L 94.0-98.0 % Arterial Blood Base Excess -2.5 L -2.0-3.0 mmol/L Arterial Blood Oxyhemoglobin 86.7 L 94.0-98.0 % Arterial Blood Carboxyhemoglobin 0.4 L 0.5-1.5 % Arterial Blood Methemoglobin 0.4 0.0-1.5 % Mian Test Modified Blood Gas Total Hemoglobin 11.30 L 12.0-16.0 g/dL Blood Gas Modality Room air FiO2 % 21.0 Blood Gas Critical Value Read Back Yes Blood Gas Notified Whom Aki patel np Blood Gas Notified Time [id number] Blood Gas Notified By Aleta bardales rt Test 08/22/24 05:08 08/22/24 02:21 08/21/24 22:50 08/21/24 21:29 Range/Units CSF Herpes Simplex I DNA (PCR) Negative Negative CSF Herpes Simplex II DNA (PCR) Negative Negative Differential Total Cells Counted 100.0 100 Neutrophils % (Manual) 78 37.0-80.0 Band Neutrophils % (Manual) 1 Lymphocytes % (Manual) 13 10.0-50.0 Monocytes % (Manual) 8 0-12 Eosinophils % (Manual) 0 0-7 Basophils % (Manual) 0 0.0-2.0 Metamyelocytes % (manual) 0 Myelocytes % (Manual) 0 Promyelocytes % (Manual) 0 Blast Cells % (Manual) 0 Reactive Lymphocytes 0 Platelet Estimate Increased Large Platelets Few Microcytosis Slight Macrocytosis Ammonia 16 11-32 umol/L Influenza Type A Antigen Negative Negative Influenza Type B Antigen Negative Negative SARS-CoV-2 Antigen (Rapid) Negative NEGATIVE Creatine Kinase 233 H 34-145 U/L Thyroid Stimulating Hormone (TSH) 0.75 0.55-4.78 uIU/mL Plasma/Serum Blood Alcohol < 3.0 <10 mg/dL Test 08/21/24 19:44 08/21/24 14:32 08/21/24 13:00 Range/Units Lactic Acid Level 4.5 *H 0.4-2.0 mmol/L Urine Color Light-yellow Yellow Urine Clarity Clear Clear Urine pH 6.5 5.0-9.0 Urine Specific [place] 1.015 1.001-1.035 Urine Protein 1+ H Negative Urine Ketones Negative Negative Urine Blood 2+ H Negative /uL Urine Nitrite Negative Negative Urine Bilirubin Negative Negative Urine Urobilinogen Normal Negative mg/dL Urine Leukocyte Esterase Negative Negative /uL Urine RBC 49 0 - 4 /hpf Urine Microscopic WBC 4 0-5 /HPF Urine Squamous Epithelial Cells Few <5 /hpf Urine Bacteria None seen None Seen /hpf Urine Mucus Few None Seen Urine Glucose Normal Normal mg/dL Urine Opiates Screen Pos NEGATIVE Urine Fentanyl Screen Neg NEGATIVE Urine Barbiturates Screen Neg NEGATIVE Urine Phencyclidine Screen Neg NEGATIVE Urine Amphetamines Screen Neg NEGATIVE Urine Benzodiazepines Screen Neg NEGATIVE Urine Cocaine Screen Neg NEGATIVE Urine Cannabinoids Screen Pos NEGATIVE Tacrolimus (LC/MS/MS) <0.5 L . ng/mL Microbiology Date/Time Source Procedure Growth Status 08/24/24 15:45 Cerebral Spinal Fluid Gram Stain - Final Resulted 08/24/24 15:45 Cerebral Spinal Fluid CSF Culture & Gram Stain (Tube 2) M - Preliminary Resulted 08/23/24 19:30 Nose MRSA Screen - Final Complete 08/21/24 17:40 Blood Blood Culture - Final NO GROWTH AFTER 5 DAYS OF INCUBATION. Complete 08/21/24 14:32 Voided Urine Urine Culture - Final Complete Problems(with codes): (1) Lower back pain (2) Migraine with status migrainosus (3) Systemic lupus erythematosus (4) Sepsis (5) Lupus cerebritis Plan/Recommendation ASSESSMENT AND PLAN: ID Problem List: - Systemic Lupus Erythematosus (SLE) - Concern for meningitis - Urinary retention - Headache - Hypoxia on 2L nasal cannula - Elevated liver function tests - Anemia - Thrombocytosis - Elevated creatinine - Possible sepsis with elevated lactic acid - History of transient ischemic attacks (TIAs) Assessment This is a female patient with a past medical history of systemic lupus erythematosus (diagnosed in 2019) and prior transient ischemic attacks, who presents with severe headache, mild vomiting, and lightheadedness. She restarted her medications in May, including prednisolone, hydrocodone, aspirin, clopidogrel (Plavix), pantoprazole, and atorvastatin. Lumbar puncture revealed a bloody tap with 8,000 WBCs, 2 million RBCs, protein 112 mg/dL, glucose 41 mg/dL, with 76% polymorphonuclear cells and 24% mononuclear cells. CSF PCR was negative for HSV-1 and HSV-2. Preliminary CSF cultures show no bacterial organisms. TB Quantiferon testing has been done. MRI of the brain shows a small linear cortical area of restricted diffusion in the left parietal lobe, possibly related to an acute/subacute infarct. CT head shows no acute intracranial abnormality. She has been afebrile throughout hospitalization, with stable blood pressures and no tachycardia. Oxygen saturation is maintained at 94% on 2L nasal cannula. Laboratory studies show elevated WBC count of 17.3, anemia with hemoglobin of 11.7, thrombocytosis with platelets of 547, and elevated creatinine of 1.83 mg/dL. A Mills catheter was placed on August 24 due to inability to urinate. Urine cultures grew multiple colony types including yeast and mixed gram-positive fl ora. She has been on vancomycin, acyclovir, ceftriaxone, and fluconazole. Plan: - Discontinue acyclovir as CSF PCR is negative for HSV. - Discontinue ampicillin and fluconazole - Continue vancomycin and ceftriaxone empirically for sepsis concerns due to elevated lactic acid. - Monitor for signs of infection; if no source identified, consider discontinuing antibiotics in the coming days. - Follow up on sputum cultures; if hypoxia worsens, consider coverage for pneumonia. - Consider testing for tuberculosis and fungal meningitis; cryptococcal meningitis is possible given steroid use. - Follow up on cryptococcal antigen and fungal culture and TB cultures from CSF; if not sent, may need repeat lumbar puncture if symptoms do not improve. - Hold off on initiating amphotericin B until diagnosis of fungal meningitis is confirmed. - Manage urinary retention; continue to monitor renal function and Mills catheter output. Isolation Precautions: Standard Assessment and plan was discussed with the patient as written above. Plan is subject to change pending incorporation of new incoming information/diagnostics. Updates may be added as addendum at the bottom (OR TOP) of this note. Thank you for the interesting consult. ID will continue to follow. Please contact Infectious Disease for any questions or concerns. Nori Bernstein M.D. [facility] Ph: ? History: The patient's chart and medications were reviewed in detail, and the patient was seen and examined. History obtained from: Patient Ronald Morris is a female patient with a past medical history of systemic lupus erythematosus (diagnosed in 2019) and prior transient ischemic attacks. She presents with severe headache, mild vomiting, and lightheadedness. She restarted her medications in May. She was previously evaluated at [facility] for back pain and inability to sit or stand. MRI spine findings are not specified. The patient reports no recent surgeries. She smokes marijuana for pain management but denies alcohol use and heavy drug use. Current medications include prednisolone, hydrocodone, aspirin, clopidogrel (Plavix), pantoprazole, and atorvastatin. She has no known drug allergies. Family history is significant for hypertension and stroke. Review of Systems: A complete 10-system review of systems was completed and negative except as noted in the HPI or here. ROS: - CONSTITUTIONAL: Denies weight loss, fever, and chills. - HEENT: Reports severe headache. Denies changes in vision and hearing. - RESPIRATORY: Denies cough but notes mild lightheadedness. - CV: Denies chest pain and palpitations. - GI: Reports mild vomiting. Denies abdominal pain, nausea, diarrhea. - : Reports urinary retention. - MSK: Reports back pain. Denies myalgia and joint pain. - SKIN: Denies rash and pruritus. - NEUROLOGICAL: Reports severe headache and lightheadedness. Denies syncope. - PSYCHIATRIC: Denies recent changes in mood, anxiety, and depression. Past Medical History: Diagnosis Date - Systemic Lupus Erythematosus (2020) - Prior transient ischemic attacks Past Surgical History: History reviewed. No pertinent surgical history. Home Medications: Prior to Admission Medications Medication | Sig - | Prednisolone | Take as prescribed. Hydrocodone | Take as prescribed for pain. Aspirin | Take 81 mg by mouth daily. Clopidogrel (Plavix) | Take as prescribed. Pantoprazole | Take as prescribed. Atorvastatin | Take as prescribed. Allergies: No known drug allergies. Family History: Problem | Relation - | Hypertension | Family history Stroke | Family history No partnership data on file. Social History: Socioeconomic History - Marital status: Not specified - Number of children: Not specified - Years of education: Not specified - Highest education level: Not specified Occupational History - Not specified Tobacco Use - Smoking status: Smokes marijuana for pain management - Smokeless tobacco: Never Substance Use - Alcohol use: Denies - Drug use: Denies heavy drug use Other Topics Concern - Not specified Social Determinants of Health - No difficulties reported in housing, food, utilities, transportation, or financial resources. Objective: Vital Signs on Arrival: Temp: 98.6 F?BP: 158/93?Pulse: 94?Resp: 24?SpO?: 94% on 2L nasal cannula Most Recent Vital Signs: Temp: [Not specified]?BP: [Not specified]?Pulse: [Not specified]?Resp: [Not specified]?SpO?: [Not specified] Admission Weight: Weight: [Not specified]?BMI: [Not specified] Physical Exam: General:?NAD Neck:?Supple. No masses. HEENT:?PERRL. Normal lids and conjunctiva. Moist mucous membranes. Oropharynx without lesions, exudates, or excessive erythema. Normal appearance of the external aspects of the nose and ears. Heart:?Regular rhythm, normal rate. No murmur. No lower extremity edema. Lungs:?Normal respiratory effort. Clear to auscultation bilaterally. No wheezes. No crackles. O? saturation 94% on 2L nasal cannula. Abdomen:?Soft. Non-tender. Non-distended. No masses or abdominal hernia. MSK:?No digital cyanosis. Normal strength and tone in all 4 limbs. Skin:?Warm and dry, no rashes. Neuro:?Alert and oriented to person, place, time, and situation. No facial droop or slurred speech. Extraocular movements intact. Sensation intact to soft touch in all 4 limbs. Psych:?Appropriate mood. Full affect. Lines: Active Lines - Peripheral IV Line - Mills catheter placed on 08/24 Diagnostic Studies: Available diagnostic studies were reviewed personally. Significant relevant results and findings are outlined below or addressed in the Assessment and Plan above. Pertinent Imaging: Recent Results (from the past 360 hours) CT Head: - No evidence of acute intracranial abnormality. MRI Brain: - Small linear cortical area of restricted diffusion in the left parietal lobe, possibly related to an acute/subacute infarct. No evidence of hemorrhage. Chest X-ray: - Moderate to large right pleural effusion. Renal Ultrasound: - Unremarkable examination. Laboratory Results: - WBC: 17.3?Hgb: 11.7?Platelets: 547 - Elevated BUN and creatinine (Creatinine: 1.83 mg/dL) - CSF Analysis: Bloody tap with 8,000 WBCs, 2 million RBCs, protein 112 mg/dL, glucose 41 mg/dL, PMNs 76%, mononuclear cells 24%. CSF PCR negative for HSV-1 and HSV-2. Cultures: - Urine culture grew multiple colony types including yeast and mixed gram- positive eugenia. - Blood cultures: No growth to date. - TB Quantiferon testing done; results pending. Plan discussed with: Patient NORI BERNSTEIN MD Aug 26, 2024 19:18"
[2024-08-26] MEDS: PANTOPRAZOLE 40 MG/10 ML VIAL INJ IV ONE (20:40)
--- NOTE | 2024-08-26 20:50 | DVHPN2 ---
Progress Note - Dictate Date Seen: Aug 26, 2024 Has the PT tested + for MRSA If YES, has PT been informed?: No Medical Necessity Reason Pt with a Central, PICC or Fol: No Subjective Ms. Ernadnez is a 29 years old right-handed female with a history of lupus, he was brought to the [facility] on 08/21/2024 with a chief company of intense headache. I have seen and examined the patient, discussed with her nurse, she was awake, oriented to person company place, she knows year and the month, she can not express herself, socially appropriate But she can hardly move the left leg CSF profile, 08/22/2024: Bloody, RBC: 428,311, WBC: 750, mono: 24%, poly: 76%, protein: 2072.4 CSF, 08/24/24: Bloody, RBC: 2,100,000 WBC: 8000, mono: poly: 92, protein: 1411.2, glucose: <4 C4, 08/22/2019 5:4, C3, 08/22/2019 5:39 a.m. UDS, 08/21/2024: Opiates, cannabinoids, Plasma alcohol, 08/21/2024: <3 Urinalysis, 08/21/2024: WBC: Four, urine leukocyte esterase: Negative WBC/HB/PLT/MCV, 08/22/2024: 26.7/10.2/571/78.6 ESR, 08/21/2024: 24, 08/22/2024: 25, : 49 CMP, 08/22/2024: Unremarkable CRP, 08/21/2024: 0.68, 08/22/2024: 1.73, 08/23/2019 5:7.11 TSH, 08/21/2024: 0.75 CT head, 08/21/2024: No CT evidence of acute intracranial abnormality MRI head, 08/23/2024: Limited MR study demonstrates a small area of curvilinear cortical restricted diffusion in the left parietal lobe which May relate to an acute to subacute infarct. There is no evidence of hemorrhage. There is no significant mass effect. MRA head, 08/23/2024: Limited exam as the posterior cranial fossa is not completely imaged. No evidence of hemodynamically significant intracranial stenosis, proximal occlusion, AVM or aneurys vital signs Vital Sign Date Time Temp Pulse Resp B/P (MAP) Pulse Ox O2 Delivery O2 Flow Rate FiO2 08/26/24 18:30 95 20 156/93 (114) 99 08/26/24 18:00 Nasal Cannula* 08 2508/26/24 16:00 97.8 97.8 Total Intake and Output 08/25/24 08/25/24 08/26/24 14:59 22:59 06:59 Intake Total 1195 ml 2120 ml 2104 ml Output Total 1200 ml 2500 ml Balance 1195 ml 920 ml -396 ml medications Current Medications Medications Dose Ordered Sig/Osiris Route Start Time Stop Time Status Last Admin Dose Admin Acetaminophen 650 mg Q6HP PRN PO 08/21/24 21:30 Nitroglycerin 0.4 mg Q5MINP PRN SL 08/21/24 21:30 Morphine Sulfate 2 mg Q30M PRN IV 08/21/24 21:30 08/21/24 23:59 2 MG Acetaminophen/ Hydrocodone Bitart 1 tab Q4HPRN PRN PO 08/21/24 23:45 08/26/24 18:34 1 TAB Vancomycin HCl 0 ml @ 0 mls/hr UD IV 08/22/24 05:15 Ceftriaxone Sodium/Dextrose 50 ml @ 50 mls/hr Q12HR@09,21 IV 08/22/24 05:15 08/26/24 20:43 50 MLS/HR Ampicillin Sodium 2 gm/Sodium Chloride 100 ml @ 100 mls/hr Q4HR IV 08/22/24 06:00 08/26/24 14:09 100 MLS/HR Lorazepam 1 mg ONCE PRN IV 08/22/24 10:45 08/23/24 11:55 1 MG Acyclovir Sodium 0 ml @ 0 mls/hr PER PHARMACY IV 08/23/24 14:15 Acyclovir Sodium 500 mg/Dextrose 110 ml @ 110 mls/hr Q8H IV 08/23/24 18:00 08/26/24 18:26 110 MLS/HR Vancomycin HCl 100 ml @ 100 mls/hr Q7H IV 08/23/24 19:00 08/26/24 17:27 100 MLS/HR Esmolol HCl 250 ml @ 15 mls/hr [id number] IV 08/24/24 21:00 08/25/24 04:53 15 MLS/HR Labetalol HCl 200 mg Q12HR PO 08/25/24 10:00 08/26/24 10:21 200 MG Fluconazole 100 ml @ 100 mls/hr 10,11 IV 08/25/24 10:00 08/26/24 15:26 100 MLS/HR Nicardipine HCl 250 ml @ 50 mls/hr Q5H IV 08/25/24 08:00 08/26/24 11:33 50 MLS/HR Dextrose/Sodium Chloride 1,000 ml @ 75 mls/hr [id number] IV 08/25/24 09:30 08/26/24 13:58 75 MLS/HR Sodium Chloride 10 ml QSHIFT@10,22 IV 08/25/24 22:00 08/26/24 09:27 10 ML Amino Acids 0 ml @ 0 mls/hr PER PHARMACY IV 08/25/24 17:15 Diagnostic Test (Pha) 1 strip Q6HR 08/26/24 00:00 08/26/24 18:26 1 STRIP Insulin Human Regular FOLLOW SLIDING SCALE Q6HR SC 08/26/24 00:00 08/26/24 18:33 4 UNITS Dextrose 50 ml UD IV 08/25/24 18:30 Amino Acids/ Electrolytes/ Dextrose 1,000 ml @ 41 mls/hr DAILY@2200 IV 08/25/24 22:00 08/25/24 22:45 41 MLS/HR Amlodipine Besylate 5 mg DAILY PO 08/27/24 10:00 Pantoprazole Sodium 40 mg DAILY IV 08/27/24 10:00 Methylprednisolone Sodium Succinate 60 mg BID IV 08/26/24 22:00 Ketorolac Tromethamine 30 mg Q6HPRN PRN IV 08/26/24 15:00 08/31/24 14:59 08/26/24 15:32 30 MG objective General: the patient is well developed and nourished. No acute distress. MENTAL STATUS: Subjective SPEECH, LANGUAGE, HIGHER CORTICAL FUNCTION: no aphasia or dysathria. CRANIAL NERVES: Pupils are equal, round and reactive. EOMs full and conjugate. Facial sensation intact in all three divisions bilaterally. Mandibular strength intact. Facial muscles symmetrical and strength intact. SENSATION: Visual salvador full to confrontation. Sensation to touch and pinprick is normal MOTOR: Normal tone in the upper and lower extremity. Normal muscle bulk. No fasciculations. She moves the arms, with muscle power no less than 4/5, she moves the legs, is >3/5, left: 2/5 REFLEXES: Deep tendon reflexes are symmetrical. No pathological reflexes. CEREBELLAR/COORDINATION: Deferred GAIT/STATION: deferred laboratory and microbiology Laboratory Tests 08/26/24 03:10 Test 08/26/24 03:10 Range/Units Serum Glucose 234 H 74-106 mg/dL Problem List Acute headache with abnormal CSF profile ? Meningitis, ? Bacterial meningitis ? SAH ? 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 Although this document has been carefully reviewed, there may still be some phonetic and typographical errors. These areas are purely typographical due to imperfections of the software programs, and do not reflect any compromise in the patient's medical care. Prognosis poor Dietary Evaluation Review Recommendations by RD: Increase Calorie Intake Comments: 1) Increase TPN to meet at least 75% of estimated daily needs d/t 0% PO intake. Current TPN meets ~ 34% estimated daily energy needs and 59% estimated daily protein needs 2) If negligible appetite persists and GI route is preferred, consider Glucerna @ 45 mL/hr goal rate as tolerated. Goal rate will provide 1296 kcals, 65g Pro, and 869 mL free H2O per 24 hrs. TF regimen will meet 86% estimated daily energy needs and 90% estimated daily protein needs 3) Encourage PO intake as appropriate 4) Continue to monitor appetite, labs, and skin integrity Expected Outcomes/Goals: 1) appetite and labs to improve 2) condition to improve Plan discussed with: Patient PHILIP WELLS MD Aug 26, 2024 20:50
[2024-08-26] MEDS: methylPREDNISolone SOD SUCC 125 MG/2 ML VL IV SCH (21:44)
[2024-08-26] MEDS ORDERED: LORazepam 2MG/ML-1ML VIAL IV PRN (22:00)
--- NOTE | 2024-08-26 22:52 | DVHINCON2 ---
Date of service: Aug 26, 2024 Referring Physician Anand Schwartz NP Reason for Consultation Acute hypoxic respiratory failure and sepsis. History of Present Illness A 29-year-old woman with past medical history of lupus who presented to ED on 08/21/24 with the chief complaints of severe headache onset AM of presentation. Patient was diagnosed with lupus in 2019, she was not on medication last year and restarted her medication in May. Patient went to another facility the week prior due to headache, did MRI and found multiple mini strokes, started on aspirin, clopidogrel and Lipitor. On Wednesday (08/20), patient woke up with severe back pain, unable to sit or stand and went to [facility] ED; MRI of the spine revealed bulging disc or cyst and urinalysis was positive for UTI, given cephalexin. On the morning of presentation, pt began with severe headache described as drooling sensation into the brain or skull associated with mild vomiting and lightheadedness prompting visit to ED. Patient was diagnosed with sepsis, nontraumatic subarachnoid hemorrhage w/ SLE cerebritis and admitted for further care. Pulmonary consultation is requested for evaluation and management of acute hypoxic respiratory failure and sepsis. Review of Systems: 14-point review of systems negative unless otherwise noted above. Past Medical History: Lupus since 2019 Past Surgical History: None Medications: Reviewed. Allergies: No known drug allergies. Family History: No family history of premature CAD. No family history of lung disorders. Social History: Nonsmoker. No alcohol use. Smokes marijuana for pain management but denies other illicit drug abuse Allergies: Coded Allergies: NO KNOWN ALLERGIES (Unverified , 08/21/24) Home Meds Reported Medications Prednisone (PREDNISONE) 1 Mg Tb, 5 MG GT, TAB 08/25/24 Pantoprazole Sodium (PANTOPRAZOLE SODIUM) 40 Mg Inj, 40 MG IV, INJ 08/25/24 Hydroxychloroquine Sulfate (Hydroxychloroquine Sulfat) 200 Mg Tab, 200 MG PO for 30 Days, MG 08/25/24 Atorvastatin Calcium (ATORVASTATIN CALCIUM) 40 Mg Tab, 1 TAB PO DAILY, #30 TAB 5 Refills 08/25/24 Acetaminophen (Acetaminophen) 325 Mg Tab, 500 MG PO Q4HP PRN for MILD PAIN for 30 Days, MG 0 Refills 08/25/24 Aspirin (Aspirin) 325 Mg Tab, 81 MG PO DAILY for 30 Days, MG 08/25/24 Clopidogrel Bisulfate (CLOPIDOGREL) 75 Mg Tab, 75 MG PO DAILY for 30 Days, MG 08/25/24 Cephalexin Monohydrate (Cephalexin) 500 Mg Cap, 500 MG PO Q6HR, MG 08/25/24 Current Medications Current Medications Medications (Trade) Dose Ordered Sig/Osiris Route PRN Reason Start Time Stop Time Status Last Admin Diagnostic Test (Pha) (Accu-Chek Comfort Curve T) 1 strip Q6HR 08/26/24 00:00 08/26/24 18:26 Insulin Human Regular (InsuLIN R) FOLLOW SLIDING SCALE Q6HR SC 08/26/24 00:00 08/26/24 18:33 Amlodipine Besylate (Norvasc Tablet) 5 mg DAILY PO 08/27/24 10:00 Pantoprazole Sodium (Protonix) 40 mg DAILY IV 08/27/24 10:00 Methylprednisolone Sodium Succinate (Solu Medrol) 60 mg BID IV 08/26/24 22:00 08/26/24 21:44 Ketorolac Tromethamine (Toradol Injection) 30 mg Q6HPRN PRN IV SEVERE PAIN (7-10 PAIN SCALE) 08/26/24 15:00 08/31/24 14:59 08/26/24 21:44 Lorazepam (Ativan Inj) 1 mg ONCE PRN IV MRI 08/26/24 22:00 Vital Signs Vital Signs Date Time Temp Pulse Resp B/P (MAP) Pulse Ox O2 Delivery O2 Flow Rate FiO2 08/26/24 21:58 97 163/95 08/26/24 18:30 20 99 08/26/24 18:00 Nasal Cannula* 2 28 08/26/24 16:00 97.8 97.8 Physical Exam Gen.: Patient lying in bed in no apparent distress. On supplemental oxygen. Head: Normocephalic, atraumatic. Eyes: EOMI/PERRLA. Ears: Normal hearing. Normal anatomy. Neck/trachea: Trachea midline, supple. Nose: Normal external anatomy. Mouth: Moist mucous membranes. Chest: Decreased air entry bilaterally. No wheezing or rhonchi. Cardiovascular: Positive S1, positive S2. Regular rate and rhythm. Abdomen: Positive bowel sounds in all 4 quadrants. Soft, non-tender, non- distended. : Deferred. Rectal: Deferred. Skin: Warm, dry. Intact. Extremities: 2+ radial pulses bilaterally. No lower extremity edema. Neuro: Awake, alert, oriented x3. No gross motor or sensory deficits. Cranial nerves II through XII intact. Gait not assessed. Labs/Diagnostic Data Labs Test 08/26/24 18:17 08/26/24 05:00 08/26/24 03:10 08/25/24 11:49 Range/Units POC Glucose 196 H 70-106 mg/dl White Blood Count 11.4 H 4.4-10.8 10^3/uL Red Blood Count 3.63 L 4.0-5.20 10^6/uL Hemoglobin 9.4 L 12.2-16.2 g/dL Hematocrit 28.8 L 36.0-46.0 % Mean Corpuscular Volume 79.2 L 80.0-100.0 fL Mean Corpuscular Hemoglobin 25.9 L 28.0-32.0 pg Mean Corpuscular Hemoglobin Concent 32.7 32.0-36.0 g/dL Red Cell Distribution Width 18.9 H 11.8-14.3 % Platelet Count 470 H 140-450 10^3/uL Mean Platelet Volume 7.8 6.9-10.8 fL Neutrophils (%) (Auto) 88.8 H 37.0-80.0 % Lymphocytes (%) (Auto) 7.8 L 10.0-50.0 % Monocytes (%) (Auto) 3.3 0.0-12.0 % Eosinophils (%) (Auto) 0.0 0.0-7.0 % Basophils (%) (Auto) 0.1 0.0-2.0 % Neutrophils # (Auto) 10.1 H 1.6-8.6 10 ^3/uL Lymphocytes # (Auto) 0.9 0.4-5.4 10 ^3/uL Monocytes # (Auto) 0.4 0-1.3 10 ^3/uL Eosinophils # (Auto) 0 0-0.8 10 ^3/uL Basophils # (Auto) 0 0-0.2 10 ^3/uL Nucleated Red Blood Cells 0.1 % Sodium Level 139 136-145 mmol/L Potassium Level 3.1 L 3.5-5.1 mmol/L Chloride Level 105 98-107 mmol/L Carbon Dioxide Level 24 20-31 mmol/L Anion Gap 10 5-15 Blood Urea Nitrogen 14 9-23 mg/dL Creatinine 0.60 # 0.550-1.02 mg/dL Glomerular Filtration Rate Calc 124 >90 mL/min BUN/Creatinine Ratio 23.3 H 10.0-20.0 Serum Glucose 234 H 74-106 mg/dL Calcium Level 8.0 L 8.7-10.4 mg/dL Phosphorus Level 2.0 L 2.4-5.1 mg/dL Magnesium Level 2.2 1.6-2.6 mg/dL Total Bilirubin 0.3 0.2-1.0 mg/dL Aspartate Amino Transferase (AST) 324 H 13-40 U/L Alanine Aminotransferase (ALT) 331 H 7-40 U/L Alkaline Phosphatase 68 46-116 U/L Total Protein 6.6 5.7-8.2 g/dL Albumin 3.4 3.2-4.8 g/dL Triglycerides Level 106 < 150 mg/dL Vancomycin Level Trough 11.9 H 5-10 ug/mL Test 08/25/24 08:57 08/24/24 17:00 08/24/24 15:45 08/24/24 11:30 Range/Units Prothrombin Time 11.6 9.3-11.8 sec Prothrombin Time INR 1.11 0.9-1.15 Activated Partial Thromboplast Time 25.1 24.5-34.5 SEC CSF Tube Number #3 CSF Appearance Bloody CSF WBC 8000 H 0-5 CUMM CSF RBC [id number] H 0-5 CUMM CSF Protein (Tube 2) 1411.2 H 15-45 mg/dL CSF Mononuclear Cells 8 % CSF Polymorphonuclear Cells 92 % CSF Glucose < 4 *L 40-70 mg/dL Urine Test Negative Negative Test 08/24/24 03:00 08/23/24 23:00 08/23/24 09:24 08/22/24 12:09 Range/Units C-Reactive Protein High Sensitivity 6.87 H <1.0 mg/dL Erythrocyte Sedimentation Rate 49 H 0-20 mm/hr Prothrombin Time Diluted 35.8 0.0-47.6 sec Dilute PT Confirmation Ratio 1.23 0.00-1.34 Ratio Thrombin Time 16.6 0.0-23.0 sec Lupus Anticoagulant PTT 31.2 0.0-43.5 sec Dilute Ebenezer Viper Venom (Lupus) 38.8 0.0-47.0 sec Lupus Anticoagulant Interpretation Comment: . Anti-Nuclear Antibody Comment Comment . AYAKA-1 Antibody <0.2 0.0-0.9 AI SS-A/Ro Antibody 0.3 0.0-0.9 AI SS-B/La Antibody <0.2 0.0-0.9 AI Sm Antibody >8.0 H 0.0-0.9 AI TUMBLING BARREL PAINTER Antibody 7.3 H 0.0-0.9 AI Scl-70 (Scleroderma) Antibody <0.2 0.0-0.9 AI Anti-Double Strand DNA Antibody 73 H 0-9 IU/mL Chromatin Antibody >8.0 H 0.0-0.9 AI Centromere B Antibody <0.2 0.0-0.9 AI Complement C3 36 L 82-167 mg/dL Complement C4 3 L 12-38 mg/dL Beta HCG, Quantitative 13.8 H 1.5-4.2 mIU/mL Blood Gas Specimen Type Arterial Blood Gas Sample Site Right radial Blood Gas Patient Temperature 37.0 Arterial Blood Date Drawn [id number] Arterial Blood pH 7.536 H 7.350-7.450 Arterial Blood Partial Pressure CO2 22.5 L 32.0-45.0 mmHg Arterial Blood Partial Pressure O2 50.7 *L 83.0-108.0 mmHg Arterial Blood HCO3 18.6 L 21.0-28.0 mmol/L Arterial Blood Oxygen Saturation 87.4 L 94.0-98.0 % Arterial Blood Base Excess -2.5 L -2.0-3.0 mmol/L Arterial Blood Oxyhemoglobin 86.7 L 94.0-98.0 % Arterial Blood Carboxyhemoglobin 0.4 L 0.5-1.5 % Arterial Blood Methemoglobin 0.4 0.0-1.5 % Mian Test Modified Blood Gas Total Hemoglobin 11.30 L 12.0-16.0 g/dL Blood Gas Modality Room air FiO2 % 21.0 Blood Gas Critical Value Read Back Yes Blood Gas Notified Whom Aki schwartz np Blood Gas Notified Time [id number] Blood Gas Notified By Aleta bardales rt Test 08/22/24 05:08 08/22/24 02:21 08/21/24 22:50 08/21/24 21:29 Range/Units CSF Herpes Simplex I DNA (PCR) Negative Negative CSF Herpes Simplex II DNA (PCR) Negative Negative Differential Total Cells Counted 100.0 100 Neutrophils % (Manual) 78 37.0-80.0 Band Neutrophils % (Manual) 1 Lymphocytes % (Manual) 13 10.0-50.0 Monocytes % (Manual) 8 0-12 Eosinophils % (Manual) 0 0-7 Basophils % (Manual) 0 0.0-2.0 Metamyelocytes % (manual) 0 Myelocytes % (Manual) 0 Promyelocytes % (Manual) 0 Blast Cells % (Manual) 0 Reactive Lymphocytes 0 Platelet Estimate Increased Large Platelets Few Microcytosis Slight Macrocytosis Ammonia 16 11-32 umol/L Influenza Type A Antigen Negative Negative Influenza Type B Antigen Negative Negative SARS-CoV-2 Antigen (Rapid) Negative NEGATIVE Creatine Kinase 233 H 34-145 U/L Thyroid Stimulating Hormone (TSH) 0.75 0.55-4.78 uIU/mL Plasma/Serum Blood Alcohol < 3.0 <10 mg/dL Test 08/21/24 19:44 08/21/24 14:32 08/21/24 13:00 Range/Units Lactic Acid Level 4.5 *H 0.4-2.0 mmol/L Urine Color Light-yellow Yellow Urine Clarity Clear Clear Urine pH 6.5 5.0-9.0 Urine Specific Arion 1.015 1.001-1.035 Urine Protein 1+ H Negative Urine Ketones Negative Negative Urine Blood 2+ H Negative /uL Urine Nitrite Negative Negative Urine Bilirubin Negative Negative Urine Urobilinogen Normal Negative mg/dL Urine Leukocyte Esterase Negative Negative /uL Urine RBC 49 0 - 4 /hpf Urine Microscopic WBC 4 0-5 /HPF Urine Squamous Epithelial Cells Few <5 /hpf Urine Bacteria None seen None Seen /hpf Urine Mucus Few None Seen Urine Glucose Normal Normal mg/dL Urine Opiates Screen Pos NEGATIVE Urine Fentanyl Screen Neg NEGATIVE Urine Barbiturates Screen Neg NEGATIVE Urine Phencyclidine Screen Neg NEGATIVE Urine Amphetamines Screen Neg NEGATIVE Urine Benzodiazepines Screen Neg NEGATIVE Urine Cocaine Screen Neg NEGATIVE Urine Cannabinoids Screen Pos NEGATIVE Tacrolimus (LC/MS/MS) <0.5 L . ng/mL Microbiology Date/Time Source Procedure Growth Status 08/24/24 15:45 Cerebral Spinal Fluid Gram Stain - Final Resulted 08/24/24 15:45 Cerebral Spinal Fluid CSF Culture & Gram Stain (Tube 2) M - Preliminary Resulted 08/23/24 19:30 Nose MRSA Screen - Final Complete 08/21/24 17:40 Blood Blood Culture - Final NO GROWTH AFTER 5 DAYS OF INCUBATION. Complete 08/21/24 14:32 Voided Urine Urine Culture - Final Complete Assessment Impression: Acute hypoxic respiratory failure Dependence on supplemental oxygen Sepsis Nontraumatic subarachnoid hemorrhage SLE cerebritis Hypokalemia Marijuana use Plan: Supplemental oxygen 2 LPM NC Titrate to keep O2 sats above 92%. Taper O2 as tolerated. IV steroids Continue antibiotics Pain control Avoid oversedation Rheumatology recommendations appreciated Clinimix for nutritional support Monitor renal function. Monitor electrolytes. Supplement as necessary. Monitor ins and outs. K, phos supplementation GI prophylaxis - Protonix DVT prophylaxis. Prognosis: Poor given patient's multiple co-morbidities. Condition: Critical Rest of plan per hospitalist and other consultants. A total of 35 minutes of critical care time was spent reviewing the patient record, examining the patient, making a diagnostic and therapeutic plan, discus sing this plan with the medical personnel, following up on diagnostic studies and following the patient for clinical stability excluding any and all procedures. At least 50% of this time was spent in direct, [id number] contact. Thank you, MAGNOLIA Schwartz, for allowing me to participate in this patient's care. Further recommendations will depend on the patient's clinical course. Please do not hesitate to contact me if you have any questions or concerns. This medical document was created using an electronic medical record system with [employer] dictation system. Although these documentations are being carefully reviewed, there may still be some phonetic and typographical changes. The errors are purely typographical, due to imperfection on the software program, and do not reflect any compromise in the patient's medical care. Plan discussed with: Patient, Other (RN/MAGNOLIA Schwartz/) JENNIFER KAPLAN MD Aug 26, 2024 22:52
[2024-08-27] VITALS (98 sets, daily range): BP systolic 138–185; BP diastolic 81–112; PULSE 72–98; RESP 9–27; TEMP 97.5–98.5; O2SAT 88–100
[2024-08-27] MEDS: ONDANSETRON HCL 4 MG/2 ML VIAL IV PRN (06:34)
[2024-08-27] MEDS: ONDANSETRON HCL 4 MG/2 ML VIAL ONE (06:34)
[2024-08-27] MEDS: METOCLOPRAMIDE HCL 5MG/ml INJ 2ml VIAL IV PRN (08:05)
[2024-08-27 08:12] LABS: Basophils # (auto) 0 10 ^3/uL (0-0.2); Basophils % (auto) 0.3 % (0.0-2.0); Eosinophils # (auto) 0 10 ^3/uL (0-0.8); Hematocrit 27.6 % (36.0-46.0); Hemoglobin 8.6 g/dL (12.2-16.2); Lymphocytes # (auto) 0.9 10 ^3/uL (0.4-5.4); Lymphocytes % (auto) 7.2 % (10.0-50.0); Mean Corpuscular Hgb Conc. 31.3 g/dL (32.0-36.0); Mean Corpuscular Volume 79.8 fL (80.0-100.0); Monocytes # (auto) 0.5 10 ^3/uL (0-1.3); Monocytes % (auto) 3.6 % (0.0-12.0); Neutrophils # (auto) 11.3 10 ^3/uL (1.6-8.6); Neutrophils % (auto) 88.9 % (37.0-80.0); Nucleated Red Blood Cells % 0.1 %; Platelet Count (auto) 464 10^3/uL (140-450); Red Blood Cells 3.46 10^6/uL (4.0-5.20); White Blood Cell 12.7 10^3/uL (4.4-10.8)
[2024-08-27] MEDS: PANTOPRAZOLE 40 MG/10 ML VIAL INJ IV SCH (08:17)
[2024-08-27] MEDS: amLODIPine BESYLATE 5 MG TAB PO SCH (08:18)
[2024-08-27] MEDS: LABETALOL HCL 200 MG TAB PO SCH (08:19)
[2024-08-27] MEDS ORDERED: amLODIPine BESYLATE 5 MG TAB PO SCH (10:00)
[2024-08-27 10:26] LABS: Alkaline Phosphatase 55 U/L (46-116); Chloride 106 mmol/L (98-107)
[2024-08-27 10:27] LABS: Anion Gap 13 (5-15); BUN/Creatinine Ratio 38.8 (10.0-20.0); Blood Urea Nitrogen 19 mg/dL (9-23); Carbon Dioxide 23 mmol/L (20-31); Magnesium 2.1 mg/dL (1.6-2.6); Phosphorus 3.6 mg/dL (2.4-5.1); Sodium 142 mmol/L (136-145); Total Protein 5.7 g/dL (5.7-8.2)
[2024-08-27 11:01] LABS: Alanine Aminotransferase 176 U/L (7-40); Albumin 3.1 g/dL (3.2-4.8); Aspartate Aminotransferase 50 U/L (13-40); Bilirubin, Total 0.2 mg/dL (0.2-1.0); Calcium 8.2 mg/dL (8.7-10.4); Glucose 174 mg/dL (74-106); Potassium 3.4 mmol/L (3.5-5.1)
--- NOTE | 2024-08-27 11:26 | DVHPN2 ---
Assessment/Plan Assessment/Plan ICU Progress note 29-year-old female with SLE admitted for altered mental status transfer from outside hospital. Seen today during rounds, more awake today, still not moving left side, however more responsive and appetite improved. will add ensure, if able to tolerate 50% will take off cliniimix. c/w nicardipine maintain sbp <180, add and increase po meds Physical exam somnolent oriented to self time and place neck tenderness with active movement s1 s2 RRR clear breath sounds abdomen soft weakly moving RUE and RLE, not moving LUE LLE, however seen holding phone with both hands Labs imaging and EKG reviewed Assessment and plan acute toxic/ metabolic encephalopathy bacterial meningitis? [employer] vasculitis? subarachnoid hemorrhage? systemic lupus erythematosus lupus encephalitis margin hypotension acute urinary retention subacute CVA diabetes poor oral intake continue with nicardipine drip Increase p.o. antihypertensive Neuro recs appreciated Rheumatology recs appreciated Continue with empiric antibiotic for meningitis, acyclovir, ampicillin, ceftriaxone, vancomycin, fluconazole Pulse dose steroid Bacterial meningitis precaution infectious disease consult insulin sliding scale nutrition consult Lines PICC line [place] Diet PPN DVT prophylaxis hold GI prophylaxis Protonix Condition critical poor prognosis Full code 66 minutes of critical care time spent Plan discussed with: Patient My Orders Orders - ALEX ALEXANDER MD Procedure Category Date Status Time Ketorolac Injection PHA 08/26/24 In Process (Toradol Injection) 15:00 Nicardipine PHA 08/27/24 In Process 25mg/250ml Bag Kit 09:00 Nutritional PHA 08/27/24 In Process Supplements (Ensure 12:00 Date of Service: Aug 27, 2024 Billing Provider: ALEX ALEXANDER MD Common Visit Codes: [id number] CARE 30-74 MIN ALEX ALEXANDER MD Aug 27, 2024 11:26
[2024-08-27] MEDS: Ensure HIGH Protein Chocolate 8oz Bottle PO SCH (13:26)
[2024-08-27] MEDS: POTASSIUM CHL 20MEQ/100ML 100 ML IV ONE (13:26)
[2024-08-27 16:07] LABS: Protein S Antigen Free 48 % (61-136); Proten S Antigen Total 51 % (60-150)
--- NOTE | 2024-08-27 21:03 | DVHPN2 ---
Progress Note - Dictate Date Seen: Aug 27, 2024 Has the PT tested + for MRSA If YES, has PT been informed?: No Medical Necessity Reason Pt with a Central, PICC or Fol: No Subjective Patient seen and examined at bedside. Remains on supplemental oxygen Overnight events reviewed. vital signs Vital Sign Date Time Temp Pulse Resp B/P (MAP) Pulse Ox O2 Delivery O2 Flow Rate FiO2 08/27/24 18:45 80 16 164/88 (113) 97 08/27/24 18:13 Room Air* 0 21 08/27/24 16:00 98.5 98.5 Total Intake and Output 08/26/24 08/26/24 08/27/24 15:00 23:00 07:00 Intake Total 1838 ml 1831.001 ml 1518 ml Output Total 2800 ml 1800 ml Balance 1838 ml -968.999 ml -282 ml medications Current Medications Medications Dose Ordered Sig/Osiris Route Start Time Stop Time Status Last Admin Dose Admin Acetaminophen 650 mg Q6HP PRN PO 08/21/24 21:30 Nitroglycerin 0.4 mg Q5MINP PRN SL 08/21/24 21:30 Morphine Sulfate 2 mg Q30M PRN IV 08/21/24 21:30 08/21/24 23:59 2 MG Acetaminophen/ Hydrocodone Bitart 1 tab Q4HPRN PRN PO 08/21/24 23:45 08/27/24 19:33 1 TAB Vancomycin HCl 0 ml @ 0 mls/hr UD IV 08/22/24 05:15 Ceftriaxone Sodium/Dextrose 50 ml @ 50 mls/hr Q12HR@ IV 08/22/24 05:15 08/27/24 20:45 50 MLS/HR Acyclovir Sodium 0 ml @ 0 mls/hr PER PHARMACY IV 08/23/24 14:15 Cancel Vancomycin HCl 100 ml @ 100 mls/hr Q7H IV 08/23/24 19:00 08/27/24 20:45 100 MLS/HR Esmolol HCl 250 ml @ 15 mls/hr [id number] IV 08/24/24 21:00 08/25/24 04:53 15 MLS/HR Dextrose/Sodium Chloride 1,000 ml @ 75 mls/hr [id number] IV 08/25/24 09:30 08/27/24 17:32 75 MLS/HR Sodium Chloride 10 ml QSHIFT@10,22 IV 08/25/24 22:00 08/27/24 08:20 10 ML Pantoprazole Sodium 40 mg DAILY IV 08/27/24 10:00 08/27/24 08:17 40 MG Methylprednisolone Sodium Succinate 60 mg BID IV 08/26/24 22:00 08/27/24 08:18 60 MG Ketorolac Tromethamine 30 mg Q6HPRN PRN IV 08/26/24 15:00 08/31/24 14:59 08/27/24 17:56 30 MG Lorazepam 1 mg ONCE PRN IV 08/26/24 22:00 Ondansetron HCl 4 mg Q4HPRN PRN IV 08/27/24 06:15 08/27/24 16:00 4 MG Metoclopramide HCl 10 mg Q6HR PRN IV 08/27/24 07:45 08/27/24 17:15 10 MG Amlodipine Besylate 10 mg DAILY PO 08/27/24 10:00 08/27/24 08:18 10 MG Labetalol HCl 300 mg Q12HR PO 08/27/24 10:00 08/27/24 08:19 300 MG Nicardipine HCl 250 ml @ 50 mls/hr Q5H IV 08/27/24 09:00 Enteral Nutritional Formula 240 ml TIDWM PO 08/27/24 12:00 08/27/24 18:02 240 ML objective Gen.: Patient lying in bed in no apparent distress. On supplemental oxygen. Head: Normocephalic, atraumatic. Eyes: EOMI/PERRLA. Ears: Normal hearing. Normal anatomy. Neck/trachea: Trachea midline, supple. Nose: Normal external anatomy. Mouth: Moist mucous membranes. Chest: Decreased air entry bilaterally. No wheezing or rhonchi. Cardiovascular: Positive S1, positive S2. Regular rate and rhythm. Abdomen: Positive bowel sounds in all 4 quadrants. Soft, non-tender, non- distended. : Deferred. Rectal: Deferred. Skin: Warm, dry. Intact. Extremities: 2+ radial pulses bilaterally. No lower extremity edema. Neuro: Awake, alert, oriented x3. No gross motor or sensory deficits. Cranial nerves II through XII intact. Gait not assessed. laboratory and microbiology Laboratory Tests 08/27/24 07:48 Test 08/27/24 07:48 Range/Units Serum Glucose 174 H 74-106 mg/dL Assessment/Plan Impression: Acute hypoxic respiratory failure Dependence on supplemental oxygen Sepsis Nontraumatic subarachnoid hemorrhage SLE cerebritis Hypokalemia Marijuana use Events: Remains on supplemental oxygen, 2 LPM NC Taper O2 as tolerated Continue IV steroids Continue IV antibiotics Nicardipine drip Clinimix for nutritional support Blood pressure control per hospitalist IV fluids at 100 ml/hr. Labs and imaging reviewed. Rest of plan as noted below. Plan: Supplemental oxygen Titrate to keep O2 sats above 92%. IV steroids Continue antibiotics Pain control Avoid oversedation Rheumatology recommendations appreciated Clinimix for nutritional support Monitor renal function. Monitor electrolytes. Supplement as necessary. Monitor ins and outs. Potassium supplementation GI prophylaxis - Protonix DVT prophylaxis. Prognosis: Poor given patient's multiple co-morbidities. Condition: Critical Rest of plan per hospitalist and other consultants. A total of 35 minutes of critical care time was spent reviewing the patient record, examining the patient, making a diagnostic and therapeutic plan, discussing this plan with the medical personnel, following up on diagnostic studies and following the patient for clinical stability excluding any and all procedures. At least 50% of this time was spent in direct, [id number] contact. Thank you, MAGNOLIA Schwartz, for allowing me to participate in this patient's care. Further recommendations will depend on the patient's clinical course. Please do not hesitate to contact me if you have any questions or concerns. This medical document was created using an electronic medical record system with [employer] computerized dictation system. Although these documentations are being carefully reviewed, there may still be some phonetic and typographical changes. The errors are purely typographical, due to imperfection on the software program, and do not reflect any compromise in the patient's medical care. Dietary Evaluation Review Recommendations by RD: Increase Calorie Intake Comments: 1) Increase TPN to meet at least 75% of estimated daily needs d/t 0% PO intake. Current TPN meets ~ 34% estimated daily energy needs and 59% estimated daily protein needs 2) If negligible appetite persists and GI route is preferred, consider Glucerna @ 45 mL/hr goal rate as tolerated. Goal rate will provide 1296 kcals, 65g Pro, and 869 mL free H2O per 24 hrs. TF regimen will meet 86% estimated daily energy needs and 90% estimated daily protein needs 3) Encourage PO intake as appropriate 4) Continue to monitor appetite, labs, and skin integrity Expected Outcomes/Goals: 1) appetite and labs to improve 2) condition to improve Plan discussed with: Other (JOY Berger) Critical Care Time(min): 35 JENNIFER KAPLAN MD Aug 27, 2024 21:02
[2024-08-28] VITALS (94 sets, daily range): BP systolic 117–182; BP diastolic 64–101; PULSE 72–122; RESP 11–27; TEMP 97.9–98.6; O2SAT 88–98
[2024-08-28 03:53] LABS: Basophils # (auto) 0 10 ^3/uL (0-0.2); Eosinophils # (auto) 0 10 ^3/uL (0-0.8); Hemoglobin 7.9 g/dL (12.2-16.2); Lymphocytes # (auto) 0.7 10 ^3/uL (0.4-5.4); Mean Corpuscular Volume 79.8 fL (80.0-100.0); Monocytes # (auto) 0.4 10 ^3/uL (0-1.3); Neutrophils # (auto) 11.9 10 ^3/uL (1.6-8.6)
[2024-08-28 03:56] LABS: Basophils % (auto) 0.1 % (0.0-2.0); Hematocrit 25.3 % (36.0-46.0); Lymphocytes % (auto) 5.2 % (10.0-50.0); Mean Corpuscular Hemoglobin 24.9 pg (28.0-32.0); Mean Corpuscular Hgb Conc. 31.2 g/dL (32.0-36.0); Monocytes % (auto) 2.8 % (0.0-12.0); Neutrophils % (auto) 91.9 % (37.0-80.0); Nucleated Red Blood Cells % 0.2 %; Platelet Count (auto) 467 10^3/uL (140-450); Red Blood Cells 3.17 10^6/uL (4.0-5.20); White Blood Cell 12.9 10^3/uL (4.4-10.8)
[2024-08-28 04:05] LABS: Alkaline Phosphatase 55 U/L (46-116); Anion Gap 8 (5-15); BUN/Creatinine Ratio 47.2 (10.0-20.0); Blood Urea Nitrogen 17 mg/dL (9-23); Carbon Dioxide 29 mmol/L (20-31); Chloride 104 mmol/L (98-107); Sodium 141 mmol/L (136-145)
[2024-08-28 04:06] LABS: Alanine Aminotransferase 142 U/L (7-40); Albumin 2.9 g/dL (3.2-4.8); Aspartate Aminotransferase 42 U/L (13-40); Bilirubin, Total 0.2 mg/dL (0.2-1.0); Calcium 7.8 mg/dL (8.7-10.4); Glucose 162 mg/dL (74-106); Potassium 3.4 mmol/L (3.5-5.1); Total Protein 5.5 g/dL (5.7-8.2)
[2024-08-28] MEDS: POTASSIUM CHL 20MEQ/100ML 100 ML IV ONE (04:49)
--- NOTE | 2024-08-28 09:15 | DVHPN2 ---
Subjective Patient reporting extreme back pain. Reviewed: Care Plan, H&P, Labs, Medications Changes from previous H/P or p: Changes General: Per HPI, Chills Eyes: No Pain, No Vision change, No Conjunctivae inflammation, No Eyelid inflammation, No Other, No Redness ENT: No Ear pain, No Ear discharge, No Nose pain, No Nose discharge, No Nose congestion, No Mouth pain, No Mouth swelling, No Throat pain, No Throat swelling, No Other Cardiovascular: Lt Headedness Respiratory: No Cough, No Dry, No Shortness of breath, No SOB with excertion, No Wheezing, No Hemoptysis, No Pleuritic Pain, No Sputum, No Other Gastrointestinal: No Nausea, No Vomiting, No Abdominal Pain, No Diarrhea, No Constipation, No Melena, No Hematochezia, No Other Genitourinary: No Dysuria, No Frequency, No Incontinence, No Hematuria, No Retention, No Other Musculoskeletal: back pain Objective Vitals Vital Signs Date Time Temp Pulse Resp B/P (MAP) Pulse Ox O2 Delivery O2 Flow Rate FiO2 08/28/24 08:45 88 16 160/92 (114) 95 08/28/24 08:00 98.3 98.3 08/28/24 07:30 Nasal Cannula* 2 28 Intake/Output Intake and Output 08/28/24 07:00 Intake Total 3978 ml Output Total 2600 ml Balance 1378 ml Intake Oral 980 ml IV Total 2998 ml Output Urine Total 2600 ml General Appearance: Alert, Oriented X3, Cooperative, moderate distress HEENT: Atraumatic, PERRLA Neck: Carotid Bruits Crane Lungs: Clear to auscultation, Normal air movement Cardiovascular: Normal S1, Normal S2 Musculoskeletal: Normal sensory function, Normal motor function Neuro: Cranial nerves 3-12 NL, Other (Left lower extremity weakness) Skin: Dry, Intact Psych/Mental Status: Mental status NL, Mood NL Medications Current Medications Medications Dose Ordered Sig/Osiris Route Start Time Stop Time Status Last Admin Dose Admin Acetaminophen 650 mg Q6HP PRN PO 08/21/24 21:30 Nitroglycerin 0.4 mg Q5MINP PRN SL 08/21/24 21:30 Morphine Sulfate 2 mg Q30M PRN IV 08/21/24 21:30 08/21/24 23:59 2 MG Vancomycin HCl 0 ml @ 0 mls/hr UD IV 08/22/24 05:15 Ceftriaxone Sodium/Dextrose 50 ml @ 50 mls/hr Q12HR@09, IV 08/22/24 05:15 08/27/24 20:45 50 MLS/HR Acyclovir Sodium 0 ml @ 0 mls/hr PER PHARMACY IV 08/23/24 14:15 Cancel Vancomycin HCl 100 ml @ 100 mls/hr Q7H IV 08/23/24 19:00 08/28/24 03:41 100 MLS/HR Sodium Chloride 10 ml QSHIFT@, IV 08/25/24 22:00 08/27/24 22:00 10 ML Pantoprazole Sodium 40 mg DAILY IV 08/27/24 10:00 08/27/24 08:17 40 MG Methylprednisolone Sodium Succinate 60 mg BID IV 08/26/24 22:00 08/27/24 21:41 60 MG Ketorolac Tromethamine 30 mg Q6HPRN PRN IV 08/26/24 15:00 08/31/24 14:59 08/28/24 08:23 30 MG Lorazepam 1 mg ONCE PRN IV 08/26/24 22:00 Ondansetron HCl 4 mg Q4HPRN PRN IV 08/27/24 06:15 08/27/24 22:33 4 MG Metoclopramide HCl 10 mg Q6HR PRN IV 08/27/24 07:45 08/28/24 08:23 10 MG Labetalol HCl 300 mg Q12HR PO 08/27/24 10:00 08/27/24 21:41 300 MG Enteral Nutritional Formula 240 ml TIDWM PO 08/27/24 12:00 08/27/24 18:02 240 ML Nifedipine 60 mg DAILY PO 08/28/24 10:00 Morphine Sulfate 2 mg Q6HPRN PRN IV 08/28/24 09:00 Acetaminophen/ Hydrocodone Bitart 1 tab Q6HP PRN PO 08/28/24 09:00 Laboratory Results Laboratory Tests 08/28/24 03:16 Chemistry Test 08/28/24 03:16 Albumin 2.9 g/dL (3.2-4.8) L Calcium Level 7.8 mg/dL (8.7-10.4) L Magnesium Level 2.0 mg/dL (1.6-2.6) Phosphorus Level 3.0 mg/dL (2.4-5.1) Total Protein 5.5 g/dL (5.7-8.2) L LFT Test 08/28/24 03:16 Alanine Aminotransferase (ALT) 142 U/L (7-40) H Alkaline Phosphatase 55 U/L (46-116) Aspartate Amino Transferase (AST) 42 U/L (13-40) H Total Bilirubin 0.2 mg/dL (0.2-1.0) Urinalysis Test 08/21/24 14:32 08/24/24 11:30 Urine Color Light-yellow (Yellow) Urine Clarity Clear (Clear) Urine pH 6.5 (5.0-9.0) Urine Specific [place] 1.015 (1.001-1.035) Urine Protein 1+ (Negative) H Urine Ketones Negative (Negative) Urine Blood 2+ /uL (Negative) H Urine Nitrite Negative (Negative) Urine Bilirubin Negative (Negative) Urine Urobilinogen Normal mg/dL (Negative) Urine Leukocyte Esterase Negative /uL (Negative) Urine RBC 49 /hpf (0 - 4) Urine Microscopic WBC 4 /HPF (0-5) Urine Squamous Epithelial Cells Few /hpf (<5) Urine Bacteria None seen /hpf (None Seen) Urine Mucus Few (None Seen) Urine Glucose Normal mg/dL (Normal) Urine Test Negative (Negative) Microbiology Microbiology Date/Time Source Procedure Growth Status 08/24/24 15:45 Cerebral Spinal Fluid Gram Stain - Final Resulted 08/24/24 15:45 Cerebral Spinal Fluid CSF Culture & Gram Stain (Tube 2) M - Preliminary Resulted 08/23/24 19:30 Nose MRSA Screen - Final Complete 08/21/24 17:40 Blood Blood Culture - Final NO GROWTH AFTER 5 DAYS OF INCUBATION. 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 Reports having severe back pain. States that this back pain is chronic back pain. Noted left lower extremity weakness. Patient states that this is residual from her acute stroke from her previous admission at [facility]. Patient now on increased dose of Solu-Medrol. Tolerating p.o.. Continues to be hypertensive. -antihypertensives: Stop amlodipine, changed to Procardia XL 60 mg p.o. daily. Continue labetalol 300 mg p.o. b.i.d.. -pain management: Increase [place], add morphine for breakthrough pain -neurology consultation: Recommendations reviewed -rheumatology consultation: Long discussion made with Dr. Lemus cardiac plan of care with this patient during her hospitalization -continue current antimicrobials: Meningitis panel still pending -start PPN once line has been placed -pancultures: Cultures negative -repeat labs in a.m. Critical care time spent with patient discussing and formulating plan of care: 40 minutes. This does not include time spent performing procedures. This medical document was created using an electronic medical record system with [employer] system. Although this document has been carefully reviewed, there may still be some phonetic and typographical errors. These areas are purely typographical due to imperfections of the software programs, and do not reflect any compromise in the patient's medical care. Plan discussed with: Patient, Other (RN) My Orders Orders - AJ THOMAS NP Procedure Category Date Status Time Clinimix Per Pharmacy SHRUTHI 08/27/24 In Process 22:00 Clinimix Per Pharmacy SHRUTHI 08/27/24 In Process 22:00 Nifedipine Er PHA 08/28/24 In Process (Procardia Xl 10:00 Morphine Sulfate PHA 08/28/24 In Process Injection 09:00 Hydrocodone-Acet PHA 08/28/24 In Process 10/325mg Tab ([place] 09:00 Basic Metabolic Panel LAB 08/29/24 Verified 04:00 Complete Blood Count LAB 08/29/24 Verified 04:00 Date of Service: Aug 28, 2024 Billing Provider: AJ THOMAS NP Common Visit Codes: 88811-[id number] CARE 30-74 MIN AJ THOMAS NP Aug 28, 2024 09:15
[2024-08-28] MEDS: MORPHINE SULFATE INJ 2 MG/ml SYRG IV PRN (09:34)
[2024-08-28] MEDS: NIFEdipine ER 30 MG TAB PO SCH (09:35)
[2024-08-28] MEDS: HYDROcodone-ACET 10/325MG TAB PO PRN (12:55)
--- NOTE | 2024-08-28 17:30 | DVHPN2 ---
Progress Note Date Seen: Aug 28, 2024 Has the PT tested + for MRSA If YES, has PT been informed?: No Medical Necessity Reason Pt with a Central, PICC or Fol: No Subjective Patient reports: Feels better Objective vital signs Vital Sign Date Time Temp Pulse Resp B/P (MAP) Pulse Ox O2 Delivery O2 Flow Rate FiO2 08/28/24 16:00 94 08/28/24 16:00 18 92 Room Air* 0 21 08/28/24 14:45 149/80 (103) 08/28/24 12:00 98.0 98.0 Total Intake and Output 08/27/24 08/27/24 08/28/24 15:00 23:00 07:00 Intake Total 1498 ml 1325 ml 1280 ml Output Total 1500 ml 1100 ml Balance 1498 ml -175 ml 180 ml medications Current Medications Medications Dose Ordered Sig/Osiris Route Start Time Stop Time Status Last Admin Dose Admin Acetaminophen 650 mg Q6HP PRN PO 08/21/24 21:30 Nitroglycerin 0.4 mg Q5MINP PRN SL 08/21/24 21:30 Morphine Sulfate 2 mg Q30M PRN IV 08/21/24 21:30 08/21/24 23:59 2 MG Vancomycin HCl 0 ml @ 0 mls/hr UD IV 08/22/24 05:15 Ceftriaxone Sodium/Dextrose 50 ml @ 50 mls/hr Q12HR@09,21 IV 08/22/24 05:15 08/28/24 10:36 50 MLS/HR Acyclovir Sodium 0 ml @ 0 mls/hr PER PHARMACY IV 08/23/24 14:15 Cancel Vancomycin HCl 100 ml @ 100 mls/hr Q7H IV 08/23/24 19:00 08/28/24 11:57 100 MLS/HR Sodium Chloride 10 ml QSHIFT@10,22 IV 08/25/24 22:00 08/28/24 09:35 10 ML Pantoprazole Sodium 40 mg DAILY IV 08/27/24 10:00 08/28/24 10:36 40 MG Ketorolac Tromethamine 30 mg Q6HPRN PRN IV 08/26/24 15:00 08/31/24 14:59 08/28/24 08:23 30 MG Lorazepam 1 mg ONCE PRN IV 08/26/24 22:00 Ondansetron HCl 4 mg Q4HPRN PRN IV 08/27/24 06:15 08/27/24 22:33 4 MG Metoclopramide HCl 10 mg Q6HR PRN IV 08/27/24 07:45 08/28/24 08:23 10 MG Labetalol HCl 300 mg Q12HR PO 08/27/24 10:00 08/28/24 09:34 300 MG Enteral Nutritional Formula 240 ml TIDWM PO 08/27/24 12:00 08/28/24 12:55 240 ML Nifedipine 60 mg DAILY PO 08/28/24 10:00 08/28/24 09:35 60 MG Morphine Sulfate 2 mg Q6HPRN PRN IV 08/28/24 09:00 08/28/24 09:34 2 MG Acetaminophen/ Hydrocodone Bitart 1 tab Q6HP PRN PO 08/28/24 09:00 08/28/24 12:55 1 TAB laboratory and microbiology Laboratory Tests 08/28/24 03:16 Test 08/28/24 03:16 Range/Units Serum Glucose 162 H 74-106 mg/dL Microbiology Date/Time Source Procedure Growth Status 08/24/24 15:45 Cerebral Spinal Fluid Gram Stain - Final Resulted 08/24/24 15:45 Cerebral Spinal Fluid CSF Culture & Gram Stain (Tube 2) M - Preliminary Resulted 08/23/24 19:30 Nose MRSA Screen - Final Complete 08/21/24 17:40 Blood Blood Culture - Final NO GROWTH AFTER 5 DAYS OF INCUBATION. Complete 08/21/24 14:32 Voided Urine Urine Culture - Final Complete Problem List/Assessment/Plan Problem List/Assessment/Plan s/p IV solumedrol 1g IV daily x 3 days f/u infectious workup -she received rituximab x 1 dose over 1 week ago at [facility] per patient, will hold off on IV cytoxan as rituximab can take 2-3 weeks to start working -taper solumedrol to 40mg IV BID -recommend daily PPI -recommend hematology consult due to CVA, acquired protein S deficiency? -f/u neuro recs Plan discussed with: Other (fiance, patient, other consultants) My Orders My Orders Orders - DINORA FOOTE MD Procedure Category Date Status Time Methylprednisolone PHA 08/28/24 Logged Sod Succ (Solu Medrol 22:00 Dietary Evaluation Review Recommendations by RD: Increase Calorie Intake Comments: 1) Increase TPN to meet at least 75% of estimated daily needs d/t 0% PO intake. Current TPN meets ~ 34% estimated daily energy needs and 59% estimated daily protein needs 2) If negligible appetite persists and GI route is preferred, consider Glucerna @ 45 mL/hr goal rate as tolerated. Goal rate will provide 1296 kcals, 65g Pro, and 869 mL free H2O per 24 hrs. TF regimen will meet 86% estimated daily energy needs and 90% estimated daily protein needs 3) Encourage PO intake as appropriate 4) Continue to monitor appetite, labs, and skin integrity Expected Outcomes/Goals: 1) appetite and labs to improve 2) condition to improve DINORA FOOTE MD Aug 28, 2024 17:30
[2024-08-28] MEDS: LORazepam 2MG/ML-1ML VIAL IV ONE (18:30)
[2024-08-28 19:22] LABS: Erythrocyte Sedimentation Rate 8 mm/hr (0-20)
--- NOTE | 2024-08-28 19:59 | DVH ---
CHEST RADIOGRAPH Indication: pna Technique: Single frontal view of the chest was obtained COMPARISON: XY CHEST XRAY 1 VIEW on DOS: 08/23/24 FINDINGS: Lines and Tubes: None Lungs: Atelectasis/consolidation at the left lung base, progressed compared to the prior chest x-ray from 08/23/24. No pulmonary edema. Pleura: Possible small left-sided pleural effusion. No pneumothorax. Cardiomediastinal contours: Mild cardiomegaly. Bones: Unremarkable IMPRESSION: Atelectasis/consolidation at left lung base.
[2024-08-28] MEDS: methylPREDNISolone SOD SUCC 40 MG/ML VL IV SCH (21:45)
--- NOTE | 2024-08-28 22:16 | DVHPN2 ---
Progress Note - Dictate Date Seen: Aug 28, 2024 Has the PT tested + for MRSA If YES, has PT been informed?: No Medical Necessity Reason Pt with a Central, PICC or Fol: No Subjective Ms. Ernandez is a 29 years old right-handed female with a history of lupus, he was brought to the [facility] on 08/21/2024 with a chief company of intense headache. I have seen and examined the patient, discussed with her nurse, she 1s awake, oriented x 3, socially appropriate, but he claimed that he has been weaker in the left side extremities for a few days The case was discussed with Dr. Lemus CSF profile, 08/22/2024: Bloody, RBC: 428,311, WBC: 750, mono: 24%, poly: 76%, protein: 2072.4 CSF, 08/24/24: Bloody, RBC: 2,100,000 WBC: 8000, mono: poly: 92, protein: 1411.2, glucose: <4 C4, 08/22/2019 5:4, C3, 08/22/2019 5:39 a.m. UDS, 08/21/2024: Opiates, cannabinoids, Plasma alcohol, 08/21/2024: <3 Urinalysis, 08/21/2024: WBC: Four, urine leukocyte esterase: Negative WBC/HB/PLT/MCV, 08/22/2024: 26.7/10.2/571/78.6 ESR, 08/21/2024: 24, 08/22/2024: 25, : 49 CMP, 08/22/2024: Unremarkable CRP, 08/21/2024: 0.68, 08/22/2024: 1.73, 08/23/2019 5:7.11 TSH, 08/21/2024: 0.75 CT head, 08/21/2024: No CT evidence of acute intracranial abnormality MRI head, 08/23/2024: Limited MR study demonstrates a small area of curvilinear cortical restricted diffusion in the left parietal lobe which May relate to an acute to subacute infarct. There is no evidence of hemorrhage. There is no significant mass effect. MRA head, 08/23/2024: Limited exam as the posterior cranial fossa is not completely imaged. No evidence of hemodynamically significant intracranial stenosis, proximal occlusion, AVM or aneurys vital signs Vital Sign Date Time Temp Pulse Resp B/P (MAP) Pulse Ox O2 Delivery O2 Flow Rate FiO2 08/28/24 21:44 86 154/88 08/28/24 18:58 18 08/28/24 18:30 91 08/28/24 18:00 Room Air* 0 08/28/24 16:00 97.9 97.9 Total Intake and Output 08/27/24 08/27/24 08/28/24 15:00 23:00 07:00 Intake Total 1498 ml 1325 ml 1280 ml Output Total 1500 ml 1100 ml Balance 1498 ml -175 ml 180 ml medications Current Medications Medications Dose Ordered Sig/Osiris Route Start Time Stop Time Status Last Admin Dose Admin Acetaminophen 650 mg Q6HP PRN PO 08/21/24 21:30 Nitroglycerin 0.4 mg Q5MINP PRN SL 08/21/24 21:30 Morphine Sulfate 2 mg Q30M PRN IV 08/21/24 21:30 08/21/24 23:59 2 MG Vancomycin HCl 0 ml @ 0 mls/hr UD IV 08/22/24 05:15 Ceftriaxone Sodium/Dextrose 50 ml @ 50 mls/hr Q12HR@, IV 08/22/24 05:15 08/28/24 20:30 50 MLS/HR Acyclovir Sodium 0 ml @ 0 mls/hr PER PHARMACY IV 08/23/24 14:15 Cancel Vancomycin HCl 100 ml @ 100 mls/hr Q7H IV 08/23/24 19:00 08/28/24 18:27 100 MLS/HR Sodium Chloride 10 ml QSHIFT@,22 IV 08/25/24 22:00 08/28/24 09:35 10 ML Pantoprazole Sodium 40 mg DAILY IV 08/27/24 10:00 08/28/24 10:36 40 MG Ketorolac Tromethamine 30 mg Q6HPRN PRN IV 08/26/24 15:00 08/31/24 14:59 08/28/24 08:23 30 MG Lorazepam 1 mg ONCE PRN IV 08/26/24 22:00 Ondansetron HCl 4 mg Q4HPRN PRN IV 08/27/24 06:15 08/27/24 22:33 4 MG Metoclopramide HCl 10 mg Q6HR PRN IV 08/27/24 07:45 08/28/24 18:27 10 MG Labetalol HCl 300 mg Q12HR PO 08/27/24 10:00 08/28/24 21:44 300 MG Enteral Nutritional Formula 240 ml TIDWM PO 08/27/24 12:00 08/28/24 18:28 240 ML Nifedipine 60 mg DAILY PO 08/28/24 10:00 08/28/24 09:35 60 MG Morphine Sulfate 2 mg Q6HPRN PRN IV 08/28/24 09:00 08/28/24 18:28 2 MG Acetaminophen/ Hydrocodone Bitart 1 tab Q6HP PRN PO 08/28/24 09:00 08/28/24 19:45 1 TAB Methylprednisolone Sodium Succinate 40 mg BID IV 08/28/24 22:00 08/28/24 21:45 40 MG objective General: the patient is well developed and nourished. No acute distress. MENTAL STATUS: Subjective SPEECH, LANGUAGE, HIGHER CORTICAL FUNCTION: no aphasia or dysathria. CRANIAL NERVES: Pupils are equal, round and reactive. EOMs full and conjugate. Facial sensation intact in all three divisions bilaterally. Mandibular strength intact. Facial muscles symmetrical and strength intact. SENSATION: Sensation to touch and pinprick is normal MOTOR: Normal tone in the upper and lower extremity. Normal muscle bulk. No fasciculations. She was weakness in the left extremities, Arm: 3/5, Le-2/5 REFLEXES: Deep tendon reflexes are symmetrical. No pathological reflexes. CEREBELLAR/COORDINATION: Deferred GAIT/STATION: deferred laboratory and microbiology Laboratory Tests 08/28/24 03:16 Test 08/28/24 03:16 Range/Units Serum Glucose 162 H 74-106 mg/dL Problem List Acute headache with abnormal CSF profile Lupus encephalitis ? Meningitis, ? Bacterial meningitis ? SAH ? 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 Although this document has been carefully reviewed, there may still be some phonetic and typographical errors. These areas are purely typographical due to imperfections of the software programs, and do not reflect any compromise in the patient's medical care. Prognosis poor Dietary Evaluation Review Recommendations by RD: Increase Calorie Intake Comments: 1) Increase TPN to meet at least 75% of estimated daily needs d/t 0% PO intake. Current TPN meets ~ 34% estimated daily energy needs and 59% estimated daily protein needs 2) If negligible appetite persists and GI route is preferred, consider Glucerna @ 45 mL/hr goal rate as tolerated. Goal rate will provide 1296 kcals, 65g Pro, and 869 mL free H2O per 24 hrs. TF regimen will meet 86% estimated daily energy needs and 90% estimated daily protein needs 3) Encourage PO intake as appropriate 4) Continue to monitor appetite, labs, and skin integrity Expected Outcomes/Goals: 1) appetite and labs to improve 2) condition to improve Plan discussed with: Patient, Other Critical Care Time(min): 40 PHILIP WELLS MD Aug 28, 2024 22:16
[2024-08-29] VITALS (69 sets, daily range): BP systolic 101–138; BP diastolic 48–91; PULSE 82–117; RESP 12–24; TEMP 98.1–98.4; O2SAT 93–100
[2024-08-29 05:19] LABS: Basophils # (auto) 0 10 ^3/uL (0-0.2); Basophils % (auto) 0.1 % (0.0-2.0); Eosinophils # (auto) 0 10 ^3/uL (0-0.8); Hematocrit 30.4 % (36.0-46.0); Hemoglobin 9.8 g/dL (12.2-16.2); Lymphocytes # (auto) 0.5 10 ^3/uL (0.4-5.4); Nucleated Red Blood Cells % 0.3 %
[2024-08-29 05:22] LABS: Lymphocytes % (auto) 3.5 % (10.0-50.0); Mean Corpuscular Hemoglobin 25.4 pg (28.0-32.0); Mean Corpuscular Hgb Conc. 32.1 g/dL (32.0-36.0); Monocytes # (auto) 0.5 10 ^3/uL (0-1.3); Monocytes % (auto) 3.3 % (0.0-12.0); Neutrophils # (auto) 13.2 10 ^3/uL (1.6-8.6); Neutrophils % (auto) 93.1 % (37.0-80.0); Platelet Count (auto) 577 10^3/uL (140-450); Red Blood Cells 3.86 10^6/uL (4.0-5.20); Red Cell Distribution Width 19.1 % (11.8-14.3); White Blood Cell 14.2 10^3/uL (4.4-10.8)
[2024-08-29 05:35] LABS: Chloride 100 mmol/L (98-107); Sodium 138 mmol/L (136-145)
[2024-08-29 05:36] LABS: Anion Gap 8 (5-15); Carbon Dioxide 30 mmol/L (20-31)
[2024-08-29 05:41] LABS: BUN/Creatinine Ratio 48.6 (10.0-20.0); Blood Urea Nitrogen 18 mg/dL (9-23)
[2024-08-29 05:48] LABS: Glucose 151 mg/dL (74-106); Potassium 3.3 mmol/L (3.5-5.1)
[2024-08-29 05:49] LABS: Calcium 8.6 mg/dL (8.7-10.4)
--- NOTE | 2024-08-29 10:20 | DVHPN2 ---
Subjective States her back pain has improved. Continues to have weakness to her left extremity Reviewed: Care Plan, H&P, Labs, Medications Changes from previous H/P or p: No Changes General: Per HPI, Chills Eyes: No Pain, No Vision change, No Conjunctivae inflammation, No Eyelid inflammation, No Other, No Redness ENT: No Ear pain, No Ear discharge, No Nose pain, No Nose discharge, No Nose congestion, No Mouth pain, No Mouth swelling, No Throat pain, No Throat swelling, No Other Cardiovascular: Lt Headedness Respiratory: No Cough, No Dry, No Shortness of breath, No SOB with excertion, No Wheezing, No Hemoptysis, No Pleuritic Pain, No Sputum, No Other Gastrointestinal: No Nausea, No Vomiting, No Abdominal Pain, No Diarrhea, No Constipation, No Melena, No Hematochezia, No Other Genitourinary: No Dysuria, No Frequency, No Incontinence, No Hematuria, No Retention, No Other Musculoskeletal: back pain Objective Vitals Vital Signs Date Time Temp Pulse Resp B/P (MAP) Pulse Ox O2 Delivery O2 Flow Rate FiO2 08/29/24 08:42 98 14 128/87 08/29/24 06:45 99 08/29/24 06:00 Nasal Cannula* 2 28 08/29/24 05:00 98.1 98.1 Intake/Output Intake and Output 08/29/24 07:00 Intake Total 1430 ml Output Total 4150 ml Balance -2720 ml Intake Oral 880 ml IV Total 550 ml Output Urine Total 4150 ml General Appearance: Alert, Oriented X3, Cooperative, moderate distress HEENT: Atraumatic, PERRLA Neck: Carotid [place] Lungs: Clear to auscultation, Normal air movement Cardiovascular: Normal S1, Normal S2 Abdomen: Soft, No tenderness Musculoskeletal: Normal sensory function, Normal motor function Neuro: Cranial nerves 3-12 NL, Other (Left lower extremity weakness) Skin: Dry, Intact Psych/Mental Status: Mental status NL, Mood NL Medications Current Medications Medications Dose Ordered Sig/Osiris Route Start Time Stop Time Status Last Admin Dose Admin Acetaminophen 650 mg Q6HP PRN PO 08/21/24 21:30 Nitroglycerin 0.4 mg Q5MINP PRN SL 08/21/24 21:30 Morphine Sulfate 2 mg Q30M PRN IV 08/21/24 21:30 08/21/24 23:59 2 MG Vancomycin HCl 0 ml @ 0 mls/hr UD IV 08/22/24 05:15 Ceftriaxone Sodium/Dextrose 50 ml @ 50 mls/hr Q12HR@, IV 08/22/24 05:15 08/28/24 20:30 50 MLS/HR Acyclovir Sodium 0 ml @ 0 mls/hr PER PHARMACY IV 08/23/24 14:15 Cancel Vancomycin HCl 100 ml @ 100 mls/hr Q7H IV 08/23/24 19:00 08/29/24 08:26 100 MLS/HR Sodium Chloride 10 ml QSHIFT@, IV 08/25/24 22:00 08/28/24 22:00 10 ML Pantoprazole Sodium 40 mg DAILY IV 08/27/24 10:00 08/28/24 10:36 40 MG Ketorolac Tromethamine 30 mg Q6HPRN PRN IV 08/26/24 15:00 08/31/24 14:59 08/28/24 08:23 30 MG Lorazepam 1 mg ONCE PRN IV 08/26/24 22:00 Ondansetron HCl 4 mg Q4HPRN PRN IV 08/27/24 06:15 08/27/24 22:33 4 MG Metoclopramide HCl 10 mg Q6HR PRN IV 08/27/24 07:45 08/28/24 18:27 10 MG Labetalol HCl 300 mg Q12HR PO 08/27/24 10:00 08/28/24 21:44 300 MG Enteral Nutritional Formula 240 ml TIDWM PO 08/27/24 12:00 08/28/24 18:28 240 ML Nifedipine 60 mg DAILY PO 08/28/24 10:00 08/28/24 09:35 60 MG Morphine Sulfate 2 mg Q6HPRN PRN IV 08/28/24 09:00 08/29/24 08:42 2 MG Acetaminophen/ Hydrocodone Bitart 1 tab Q6HP PRN PO 08/28/24 09:00 08/29/24 04:49 1 TAB Methylprednisolone Sodium Succinate 40 mg BID IV 08/28/24 22:00 08/28/24 21:45 40 MG Laboratory Results Laboratory Tests 08/29/24 04:46 Chemistry Test 08/29/24 04:46 Calcium Level 8.6 mg/dL (8.7-10.4) L Urinalysis Test 08/21/24 14:32 08/24/24 11:30 Urine Color Light-yellow (Yellow) Urine Clarity Clear (Clear) Urine pH 6.5 (5.0-9.0) Urine Specific [place] 1.015 (1.001-1.035) Urine Protein 1+ (Negative) H Urine Ketones Negative (Negative) Urine Blood 2+ /uL (Negative) H Urine Nitrite Negative (Negative) Urine Bilirubin Negative (Negative) Urine Urobilinogen Normal mg/dL (Negative) Urine Leukocyte Esterase Negative /uL (Negative) Urine RBC 49 /hpf (0 - 4) Urine Microscopic WBC 4 /HPF (0-5) Urine Squamous Epithelial Cells Few /hpf (<5) Urine Bacteria None seen /hpf (None Seen) Urine Mucus Few (None Seen) Urine Glucose Normal mg/dL (Normal) Urine Test Negative (Negative) Microbiology Microbiology Date/Time Source Procedure Growth Status 08/24/24 15:45 Cerebral Spinal Fluid Gram Stain - Final Resulted 08/24/24 15:45 Cerebral Spinal Fluid CSF Culture & Gram Stain (Tube 2) M - Preliminary Resulted 08/23/24 19:30 Nose MRSA Screen - Final Complete 08/21/24 17:40 Blood Blood Culture - Final NO GROWTH AFTER 5 DAYS OF INCUBATION. 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 Lemus, regarding plan of care. Given the patient received Rituxan at [facility], efficacy of the treatment should begin 1-2 weeks from administration. High-dose steroids are now decreased to Solu-Medrol 40 mg IV twice a day. Given the patient's left-sided weakness that she stated was residual from her previous CVA, it was questionable if the severity is worsening given the patient's new onset of ALOC on this admission. Patient will have repeat MRI. This was also discussed with Neurology. Recommendations were also to transferred to higher level of care for continued treatment and monitoring in a facility with in-house rheumatology. -antihypertensives: Continue p.o. Procardia and labetalol -pain management: Increase [place], add morphine for breakthrough pain -neurology consultation: Recommendations reviewed -rheumatology consultation: Long discussion made with Dr. Lemus cardiac plan of care with this patient during her hospitalization -continue current antimicrobials: Meningitis panel still pending -pancultures: Cultures negative -repeat labs in a.m. Critical care time spent with patient discussing and formulating plan of care: 40 minutes. This does not include time spent performing procedures. This medical document was created using an electronic medical record system with [employer] system. Although this document has been carefully reviewed, there may still be some phonetic and typographical errors. These areas are purely typographical due to imperfections of the software programs, and do not reflect any compromise in the patient's medical care. Plan discussed with: Patient, Other (RN) My Orders Orders - AJ THOMAS NP Procedure Category Date Status Time Transfer Orders XFER 08/28/24 Transmitted 14:31 * [employer] CONS 08/28/24 Transmitted Consult Chest Xray 1 View XY 08/28/24 Resulted 18:27 * [employer]er CONS 08/28/24 Transmitted Consult Transfer Orders XFER 08/28/24 Transmitted 18:27 Oob To Chair SHRUTHI 08/29/24 In Process 08:43 Incentive Spirometry ORDERS 08/29/24 Transmitted Q 1hr 08:43 Date of Service: Aug 29, 2024 Billing Provider: AJ THOMAS NP Common Visit Codes: [id number] CARE 30-74 MIN AJ THOMAS NP Aug 29, 2024 10:20
--- NOTE | 2024-08-29 10:47 | DVHPN2 ---
Progress Note - Dictate Date Seen: Aug 29, 2024 Has the PT tested + for MRSA If YES, has PT been informed?: No Medical Necessity Reason Pt with a Central, PICC or Fol: No Subjective Ms. Ernandez is a 29 years old right-handed female with a history of lupus, he was brought to the [facility] on 08/21/2024 with a chief company of intense headache. I have seen and examined the patient, discussed with her nurse, she 1s awake, oriented x 3, socially appropriate, she reports doing okay, and she looks stronger on physical examination CSF profile, 08/22/2024: Bloody, RBC: 428,311, WBC: 750, mono: 24%, poly: 76%, protein: 2072.4 CSF, 08/24/24: Bloody, RBC: 2,100,000 WBC: 8000, mono: poly: 92, protein: 1411.2, glucose: <4 C4, 08/22/2019 5:4, C3, 08/22/2019 5:39 a.m. UDS, 08/21/2024: Opiates, cannabinoids, Plasma alcohol, 08/21/2024: <3 Urinalysis, 08/21/2024: WBC: Four, urine leukocyte esterase: Negative WBC/HB/PLT/MCV, 08/22/2024: 26.7/10.2/571/78.6 ESR, 08/21/2024: 24, 08/22/2024: 25, two: 49 CMP, 08/22/2024: Unremarkable CRP, 08/21/2024: 0.68, 08/22/2024: 1.73, 08/23/2019 5:7.11 TSH, 08/21/2024: 0.75 CT head, 08/21/2024: No CT evidence of acute intracranial abnormality MRI head, 08/23/2024: Limited MR study demonstrates a small area of curvilinear cortical restricted diffusion in the left parietal lobe which May relate to an acute to subacute infarct. There is no evidence of hemorrhage. There is no significant mass effect. MRA head, 08/23/2024: Limited exam as the posterior cranial fossa is not completely imaged. No evidence of hemodynamically significant intracranial stenosis, proximal occlusion, AVM or aneurys vital signs Vital Sign Date Time Temp Pulse Resp B/P (MAP) Pulse Ox O2 Delivery O2 Flow Rate FiO2 08/29/24 10:30 133/91 08/29/24 10:29 101 08/29/24 09:12 16 08/29/24 06:45 99 08/29/24 06:00 Nasal Cannula* 08 2508/29/24 05:00 98.1 98.1 Total Intake and Output 08/28/24 08/28/24 08/29/24 14:59 22:59 06:59 Intake Total 425 ml 790 ml 340 ml Output Total 2750 ml 1400 ml Balance 425 ml -1960 ml -1060 ml medications Current Medications Medications Dose Ordered Sig/Osiris Route Start Time Stop Time Status Last Admin Dose Admin Acetaminophen 650 mg Q6HP PRN PO 08/21/24 21:30 Nitroglycerin 0.4 mg Q5MINP PRN SL 08/21/24 21:30 Morphine Sulfate 2 mg Q30M PRN IV 08/21/24 21:30 08/21/24 23:59 2 MG Vancomycin HCl 0 ml @ 0 mls/hr UD IV 08/22/24 05:15 Ceftriaxone Sodium/Dextrose 50 ml @ 50 mls/hr Q12HR@, IV 08/22/24 05:15 08/29/24 10:17 50 MLS/HR Acyclovir Sodium 0 ml @ 0 mls/hr PER PHARMACY IV 08/23/24 14:15 Cancel Vancomycin HCl 100 ml @ 100 mls/hr Q7H IV 08/23/24 19:00 08/29/24 08:26 100 MLS/HR Sodium Chloride 10 ml QSHIFT@ IV 08/25/24 22:00 08/29/24 10:31 10 ML Pantoprazole Sodium 40 mg DAILY IV 08/27/24 10:00 08/29/24 10:19 40 MG Ketorolac Tromethamine 30 mg Q6HPRN PRN IV 08/26/24 15:00 08/31/24 14:59 08/28/24 08:23 30 MG Lorazepam 1 mg ONCE PRN IV 08/26/24 22:00 Ondansetron HCl 4 mg Q4HPRN PRN IV 08/27/24 06:15 08/27/24 22:33 4 MG Metoclopramide HCl 10 mg Q6HR PRN IV 08/27/24 07:45 08/28/24 18:27 10 MG Labetalol HCl 300 mg Q12HR PO 08/27/24 10:00 08/29/24 10:29 300 MG Enteral Nutritional Formula 240 ml TIDWM PO 08/27/24 12:00 08/28/24 18:28 240 ML Nifedipine 60 mg DAILY PO 08/28/24 10:00 08/29/24 10:30 60 MG Morphine Sulfate 2 mg Q6HPRN PRN IV 08/28/24 09:00 08/29/24 08:42 2 MG Acetaminophen/ Hydrocodone Bitart 1 tab Q6HP PRN PO 08/28/24 09:00 08/29/24 10:29 1 TAB Methylprednisolone Sodium Succinate 40 mg BID IV 08/28/24 22:00 08/29/24 10:18 40 MG objective General: the patient is well developed and nourished. No acute distress. MENTAL STATUS: Subjective SPEECH, LANGUAGE, HIGHER CORTICAL FUNCTION: no aphasia or dysathria. CRANIAL NERVES: Pupils are equal, round and reactive. EOMs full and conjugate. Facial sensation intact in all three divisions bilaterally. Mandibular strength intact. Facial muscles symmetrical and strength intact. SENSATION: Sensation to touch and pinprick is normal MOTOR: Normal tone in the upper and lower extremity. Normal muscle bulk. No fasciculations. She was weakness in the left extremities, Arm: 3-4/5, Le- 2/5 REFLEXES: Deep tendon reflexes are symmetrical. No pathological reflexes. CEREBELLAR/COORDINATION: Deferred GAIT/STATION: deferred laboratory and microbiology Laboratory Tests 08/29/24 04:46 Test 08/29/24 04:46 Range/Units Serum Glucose 151 H 74-106 mg/dL Problem List Acute headache with abnormal CSF profile Lupus encephalitis ? Meningitis, ? Bacterial meningitis ? SAH ? 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 Although this document has been carefully reviewed, there may still be some phonetic and typographical errors. These areas are purely typographical due to imperfections of the software programs, and do not reflect any compromise in the patient's medical care. Prognosis poor Dietary Evaluation Review Recommendations by RD: Increase Calorie Intake Comments: 1) Increase TPN to meet at least 75% of estimated daily needs d/t 0% PO intake. Current TPN meets ~ 34% estimated daily energy needs and 59% estimated daily protein needs 2) If negligible appetite persists and GI route is preferred, consider Glucerna @ 45 mL/hr goal rate as tolerated. Goal rate will provide 1296 kcals, 65g Pro, and 869 mL free H2O per 24 hrs. TF regimen will meet 86% estimated daily energy needs and 90% estimated daily protein needs 3) Encourage PO intake as appropriate 4) Continue to monitor appetite, labs, and skin integrity Expected Outcomes/Goals: 1) appetite and labs to improve 2) condition to improve Plan discussed with: Patient, Other PHILIP WELLS MD Aug 29, 2024 10:47
[2024-08-29] MEDS: GADOTERATE MEG 10 MMOL/20ml INJ (0.5MMOL/ml) IV ONE (10:57)
--- NOTE | 2024-08-29 11:58 | DVH ---
MRI BRAIN WITH CONTRAST CLINICAL HISTORY: New weakness, recent rituximab use TECHNIQUE: Multiplanar multisequence images of the brain were obtained prior to and following intravenous admini stration of contrast. 10/10 cc of gadavist contrast from a prefilled syringe was administered intravenously. Comparison: MRI BRAIN HEAD WO CONTRAST on DOS: 08/23/24 FINDINGS: There are patchy areas of restricted diffusion in the superomedial right frontal and parietal lobes c onsistent with acute to subacute infarcts. There are corresponding hyperintense T2/FLAIR and hypoint ense T1 signal changes. There is no evidence of acute hemorrhage. There is no significant edema or ma ss effect. There is no pathologic enhancement. There is no evidence of mass, mass effect or midline shift. There is no hydrocephalus or extra-axial fluid collection. The visualized intracranial vasculature demonst rates appropriate flow-voids. The midline structures appear unremarkable. The craniocervical junction is within normal limits. The calvarium demonstrates normal marrow signal. The paranasal sinuses and mastoid air cells are clear. IMPRESSION: 1. Acute to subacute infarct involving the superomedial right frontal and parietal lobes. There is no evidence of acute hemorrhage. There is no significant edema or associated mass effect. HS:Y
[2024-08-29] MEDS: ASPirin 81 mg TAB PO ONE (12:40)
[2024-08-29] MEDS: CLOPIDOGREL BISULFATE 75 MG TAB PO ONE (12:41)
--- NOTE | 2024-08-29 17:16 | DVHDS2 ---
Discharge Summary Date of Admission Aug 21, 2024 at 21:19 Date of Discharge: Aug 29, 2024 Admitting Diagnosis Sepsis, rule out meningitis Labs/Diagnostic Data: Laboratory Results Test 08/29/24 14:08 08/29/24 04:46 08/28/24 18:45 08/28/24 03:16 Vancomycin Level Trough 12.3 ug/mL (5-10) White Blood Count 14.2 10^3/uL (4.4-10.8) Red Blood Count 3.86 10^6/uL (4.0-5.20) Hemoglobin 9.8 g/dL (12.2-16.2) Hematocrit 30.4 % (36.0-46.0) Mean Corpuscular Volume 79.0 fL (80.0-100.0) Mean Corpuscular Hemoglobin 25.4 pg (28.0-32.0) Mean Corpuscular Hemoglobin Concent 32.1 g/dL (32.0-36.0) Red Cell Distribution Width 19.1 % (11.8-14.3) Platelet Count 577 10^3/uL (140-450) Mean Platelet Volume 7.8 fL (6.9-10.8) Neutrophils (%) (Auto) 93.1 % (37.0-80.0) Lymphocytes (%) (Auto) 3.5 % (10.0-50.0) Monocytes (%) (Auto) 3.3 % (0.0-12.0) Eosinophils (%) (Auto) 0.0 % (0.0-7.0) Basophils (%) (Auto) 0.1 % (0.0-2.0) Neutrophils # (Auto) 13.2 10 ^3/uL (1.6-8.6) Lymphocytes # (Auto) 0.5 10 ^3/uL (0.4-5.4) Monocytes # (Auto) 0.5 10 ^3/uL (0-1.3) Eosinophils # (Auto) 0 10 ^3/uL (0-0.8) Basophils # (Auto) 0 10 ^3/uL (0-0.2) Nucleated Red Blood Cells 0.3 % Sodium Level 138 mmol/L (136-145) Potassium Level 3.3 mmol/L (3.5-5.1) Chloride Level 100 mmol/L (98-107) Carbon Dioxide Level 30 mmol/L (20-31) Anion Gap 8 (5-15) Blood Urea Nitrogen 18 mg/dL (9-23) Creatinine 0.37 mg/dL (0.550-1.02) Glomerular Filtration Rate Calc 139 mL/min (>90) BUN/Creatinine Ratio 48.6 (10.0-20.0) Serum Glucose 151 mg/dL (74-106) Calcium Level 8.6 mg/dL (8.7-10.4) Erythrocyte Sedimentation Rate 8 mm/hr (0-20) Phosphorus Level 3.0 mg/dL (2.4-5.1) Magnesium Level 2.0 mg/dL (1.6-2.6) Total Bilirubin 0.2 mg/dL (0.2-1.0) Aspartate Amino Transferase (AST) 42 U/L (13-40) Alanine Aminotransferase (ALT) 142 U/L (7-40) Alkaline Phosphatase 55 U/L (46-116) C-Reactive Protein High Sensitivity 0.77 mg/dL (<1.0) Total Protein 5.5 g/dL (5.7-8.2) Albumin 2.9 g/dL (3.2-4.8) Test 08/27/24 11:44 08/26/24 05:00 08/26/24 03:10 08/25/24 08:57 POC Glucose 220 mg/dl (70-106) Triglycerides Level 106 mg/dL (< 150) Prothrombin Time 11.6 sec (9.3-11.8) Prothrombin Time INR 1.11 (0.9-1.15) Activated Partial Thromboplast Time 25.1 SEC (24.5-34.5) Test 08/24/24 17:00 08/24/24 15:45 08/24/24 11:30 08/23/24 23:00 Protein S Antigen 51 % (60-150) Free Protein S Antigen 48 % (61-136) Hepatitis C Antibody Negative (Negative) CSF Tube Number #3 CSF Appearance Bloody CSF WBC 8000 CUMM (0-5) CSF RBC [id number] CUMM (0-5) CSF Protein (Tube 2) 1411.2 mg/dL (15-45) CSF Mononuclear Cells 8 % CSF Polymorphonuclear Cells 92 % CSF Glucose < 4 mg/dL (40-70) CSF Cryptococcus Antigen (.) Urine Test Negative (Negative) Prothrombin Time Diluted 35.8 sec (0.0-47.6) Dilute PT Confirmation Ratio 1.23 Ratio (0.00-1.34) Thrombin Time 16.6 sec (0.0-23.0) Lupus Anticoagulant PTT 31.2 sec (0.0-43.5) Dilute Ebenezer Viper Venom (Lupus) 38.8 sec (0.0-47.0) Lupus Anticoagulant Interpretation Comment: (.) Anti-Nuclear Antibody Comment Comment (.) AYAKA-1 Antibody <0.2 AI (0.0-0.9) SS-A/Ro Antibody 0.3 AI (0.0-0.9) SS-B/La Antibody <0.2 AI (0.0-0.9) Sm Antibody >8.0 AI (0.0-0.9) CERAMICS TECHNICIAN Antibody 7.3 AI (0.0-0.9) Scl-70 (Scleroderma) Antibody <0.2 AI (0.0-0.9) Anti-Double Strand DNA Antibody 73 IU/mL (0-9) Chromatin Antibody >8.0 AI (0.0-0.9) Centromere B Antibody <0.2 AI (0.0-0.9) Complement C3 36 mg/dL (82-167) Test 08/23/24 09:24 08/22/24 12:09 08/22/24 05:08 08/22/24 02:21 Beta HCG, Quantitative 13.8 mIU/mL (1.5-4.2) Blood Gas Specimen Type Arterial Blood Gas Sample Site Right radial Blood Gas Patient Temperature 37.0 Arterial Blood Date Drawn [id number] Arterial Blood pH 7.536 (7.350-7.450) Arterial Blood Partial Pressure CO2 22.5 mmHg (32.0-45.0) Arterial Blood Partial Pressure O2 50.7 mmHg (83.0-108.0) Arterial Blood HCO3 18.6 mmol/L (21.0-28.0) Arterial Blood Oxygen Saturation 87.4 % (94.0-98.0) Arterial Blood Base Excess -2.5 mmol/L (-2.0-3.0) Arterial Blood Oxyhemoglobin 86.7 % (94.0-98.0) Arterial Blood Carboxyhemoglobin 0.4 % (0.5-1.5) Arterial Blood Methemoglobin 0.4 % (0.0-1.5) Mian Test Modified Blood Gas Total Hemoglobin 11.30 g/dL (12.0-16.0) Blood Gas Modality Room air FiO2 % 21.0 Blood Gas Critical Value Read Back Yes Blood Gas Notified Whom Aki amanda thomas Blood Gas Notified Time [id number] Blood Gas Notified By Aleta bardales rt CSF Herpes Simplex I DNA (PCR) Negative (Negative) CSF Herpes Simplex II DNA (PCR) Negative (Negative) Differential Total Cells Counted 100.0 (100) Neutrophils % (Manual) 78 (37.0-80.0) Band Neutrophils % (Manual) 1 Lymphocytes % (Manual) 13 (10.0-50.0) Monocytes % (Manual) 8 (0-12) Eosinophils % (Manual) 0 (0-7) Basophils % (Manual) 0 (0.0-2.0) Metamyelocytes % (manual) 0 Myelocytes % (Manual) 0 Promyelocytes % (Manual) 0 Blast Cells % (Manual) 0 Reactive Lymphocytes 0 Platelet Estimate Increased Large Platelets Few Microcytosis Slight Macrocytosis Ammonia 16 umol/L (11-32) Test 08/21/24 22:50 08/21/24 21:29 08/21/24 19:44 08/21/24 14:32 Influenza Type A Antigen Negative (Negative) Influenza Type B Antigen Negative (Negative) SARS-CoV-2 Antigen (Rapid) Negative (NEGATIVE) Creatine Kinase 233 U/L (34-145) Thyroid Stimulating Hormone (TSH) 0.75 uIU/mL (0.55-4.78) Plasma/Serum Blood Alcohol < 3.0 mg/dL (<10) Lactic Acid Level 4.5 mmol/L (0.4-2.0) Urine Color Light-yellow (Yellow) Urine Clarity Clear (Clear) Urine pH 6.5 (5.0-9.0) Urine Specific [place] 1.015 (1.001-1.035) Urine Protein 1+ (Negative) Urine Ketones Negative (Negative) Urine Blood 2+ /uL (Negative) Urine Nitrite Negative (Negative) Urine Bilirubin Negative (Negative) Urine Urobilinogen Normal mg/dL (Negative) Urine Leukocyte Esterase Negative /uL (Negative) Urine RBC 49 /hpf (0 - 4) Urine Microscopic WBC 4 /HPF (0-5) Urine Squamous Epithelial Cells Few /hpf (<5) Urine Bacteria None seen /hpf (None Seen) Urine Mucus Few (None Seen) Urine Glucose Normal mg/dL (Normal) Urine Opiates Screen Pos (NEGATIVE) Urine Fentanyl Screen Neg (NEGATIVE) Urine Barbiturates Screen Neg (NEGATIVE) Urine Phencyclidine Screen Neg (NEGATIVE) Urine Amphetamines Screen Neg (NEGATIVE) Urine Benzodiazepines Screen Neg (NEGATIVE) Urine Cocaine Screen Neg (NEGATIVE) Urine Cannabinoids Screen Pos (NEGATIVE) Test 08/21/24 13:00 Tacrolimus (LC/MS/MS) <0.5 ng/mL (.) Other Laboratory Tests 08/29/24 04:46 Brief Hx & Hospital Course: History of Present Illness BEREKET RAYMUNDO is a 29 years old female with a PMH of lupus presented to the ED with the chief complaints of severe headache since today morning. Patient reported she is diagnosed with lupus in 2019, she was not on medication last year and restarted her medication in May. Last week patient went to other facility due to headache, did a MRI found it multiple mini strokes, started on aspirin, clopidogrel and Lipitor. On Wednesday patient woke up with severe back pain, unable to sit or stand which made her to visit [facility] ED MRI of the spine which found it having bulging disc or cyst and urinalysis was positive for UTI, given cephalexin. Again today moaning patient started having severe headache described as drooling sensation into the brain or skull associated with mild vomiting lightheadedness which brought her to visit ED. on my assessment patient is very drowsy, sleeping due to medication. Course of hospitalization: The patient had children course of hospitalization with the patient having worsening neurological symptoms, ALOC seen in the 1st 48 hours. Patient had MRI and MRI of the brain, which revealed previous CVA that was diagnosed at [facility] on recent admission. Patient had lumbar spinal tap, with significant red blood cells as well as elevated protein. Neurology consultation as well as rheumatology consultation was obtained. While we were unable to obtain records from recent hospitalization during the initial treatment, Dr. Lemus was able to view outpatient lab work from [facility], with treatment now including not only empiric antibiotic therapy and steroids for questionable meningitis, but also treatment for lupus cerebritis with high-dose steroids. Patient's fiancee was able to bring medical records from [facility], with it being noted that the patient did receive IV Rituxan during hospitalization. Patient's neurological status improved, with noted left-sided weakness. Initially, the patient stated that her weakness was secondary to the previous stroke, but nonetheless we performed a new MRI which did reveal new CVA to the right parietal lobe. Discussion was made with Neurology regarding the acute findings today, with the patient was started on both Plavix and aspirin. The patient was also notified of new findings. Given the patient's probable underlying coagulopathy that has been diagnose as well as lupus cerebritis, all parties feel that the patient should be transferred to a tertiary care center for appropriate treatment including daily monitoring and treatment by in-house rheumatology and neurology. Hematology consultation was also obtained while the patient was in this hospital. Coagulation panel is currently pending. Factor five Leiden test is currently pending. This was discussed with the patient also. She was agreeable to be transferred to a tertiary care center. All questions answered. Physical examination General: Alert and Oriented x3. No acute distress. Well-nourished. General ill presentation Eyes: EOMI. Anicteric. HENT: Moist mucous membranes. Lungs: Clear to auscultation bilaterally. No accessory muscle use. Cardiovascular: Regular rate and rhythm. No murmur. No JVD. Abdomen: Soft, non-tender and non-distended. No palpable masses. Extremities: No edema. Non-tender. Skin: No rashes or lesions. Warm. Neurologic: No focal neurological deficits. CN II-XII grossly intact, but not individually tested. Motor deficit with severe weakness to left lower extremity and left upper extreme Psychiatric: Cooperative. Appropriate mood and affect. Total time spent with patient discussing and formulating plan of care: 35 minutes. This medical document was created using an electronic medical record system with [employer] dictation system. Although this document has been carefully reviewed, there may still be some phonetic and typographical errors. These areas are purely typographical due to imperfections of the software programs, and do not reflect any compromise in the patient's medical care. Consults/Reason for consult Neurology: Altered mental status Rheumatology: Lupus, with a cerebritis Hematology: Coagulopathic Condition at Discharge: Guarded Final Diagnosis/Problems List Lupus cerebritis Acute CVA Secondary diagnosis: -metabolic encephalopathy -rule out meningitis -lupus -marijuana use -subacute CVA -? lupus encephalitis -hypertensive crisis Discharge Disposition: Acute Care Facility Discharge Instruct/Medications Diet: Regular Activity: No Restrictions, As Tolerated Follow Up/Referral: Per accepting provider Medications: Refer to medication reconciliation form 36 Discharge Statement: "Patient was advised to return to the ER or call 911 if any headaches, dizziness, shortness of breath, chest pain, abdominal pain, bleeding, fevers, or worsening of medical condition. Patient was counseled about treatment plan, medications, possible side effects, patientverbalized understanding. All questions were answered to the best of my ability. This discharge took greater then 30 minutes in planning, reviewing documentation, counseling the patient, and discussing with other team members." ASSESSMENT ASSESSMENT Assessment Lupus cerebritis Acute CVA Date of Service: Aug 29, 2024 Billing Provider: AJ THOMAS NP Common Visit Codes: 97780-GUO/OBS DISCH DAY >30min AJ THOMAS NP Aug 29, 2024 17:16
--- NOTE | 2024-08-29 18:06 | DVHPN2 ---
Consult Progress Note Date Seen: Aug 27, 2024 Subjective Patient reports: Other (not on any BP support , continues to express back pain over mid back and states her right leg is not able to move quite as well as her left 5/5 bilaterally , ocassional nasusea ) Objective vital signs Vital Sign Date Time Temp Pulse Resp B/P (MAP) Pulse Ox O2 Delivery O2 Flow Rate FiO2 08/29/24 16:30 16 94 Room Air* 0 21 08/29/24 14:00 94 08/29/24 12:00 98.1 132/72 (92) 98.1 Total Intake and Output 08/28/24 08/28/24 08/29/24 15:00 23:00 07:00 Intake Total 300 ml 790 ml 340 ml Output Total 2750 ml 1400 ml Balance 300 ml -1960 ml -1060 ml medications Current Medications Medications Dose Ordered Sig/Osiris Route Start Time Stop Time Status Last Admin Dose Admin Acetaminophen 650 mg Q6HP PRN PO 08/21/24 21:30 Nitroglycerin 0.4 mg Q5MINP PRN SL 08/21/24 21:30 Morphine Sulfate 2 mg Q30M PRN IV 08/21/24 21:30 08/21/24 23:59 2 MG Vancomycin HCl 0 ml @ 0 mls/hr UD IV 08/22/24 05:15 Ceftriaxone Sodium/Dextrose 50 ml @ 50 mls/hr Q12HR@09,21 IV 08/22/24 05:15 08/29/24 10:17 50 MLS/HR Acyclovir Sodium 0 ml @ 0 mls/hr PER PHARMACY IV 08/23/24 14:15 Cancel Sodium Chloride 10 ml QSHIFT@10,22 IV 08/25/24 22:00 08/29/24 10:31 10 ML Pantoprazole Sodium 40 mg DAILY IV 08/27/24 10:00 08/29/24 10:19 40 MG Ketorolac Tromethamine 30 mg Q6HPRN PRN IV 08/26/24 15:00 08/31/24 14:59 08/28/24 08:23 30 MG Lorazepam 1 mg ONCE PRN IV 08/26/24 22:00 Ondansetron HCl 4 mg Q4HPRN PRN IV 08/27/24 06:15 08/29/24 11:06 4 MG Metoclopramide HCl 10 mg Q6HR PRN IV 08/27/24 07:45 08/28/24 18:27 10 MG Labetalol HCl 300 mg Q12HR PO 08/27/24 10:00 08/29/24 10:29 300 MG Enteral Nutritional Formula 240 ml TIDWM PO 08/27/24 12:00 08/29/24 12:00 240 ML Nifedipine 60 mg DAILY PO 08/28/24 10:00 08/29/24 10:30 60 MG Morphine Sulfate 2 mg Q6HPRN PRN IV 08/28/24 09:00 08/29/24 08:42 2 MG Acetaminophen/ Hydrocodone Bitart 1 tab Q6HP PRN PO 08/28/24 09:00 08/29/24 17:45 1 TAB Methylprednisolone Sodium Succinate 40 mg BID IV 08/28/24 22:00 08/29/24 10:18 40 MG Aspirin 81 mg DAILY PO 08/30/24 10:00 Clopidogrel Bisulfate 75 mg DAILY PO 08/30/24 10:00 Vancomycin HCl 250 ml @ 250 mls/hr Q8H IV 08/30/24 00:00 Physical Exam: General:?NAD Neck:?Supple. No masses. HEENT:?PERRL. Normal lids and conjunctiva. Moist mucous membranes. Oropharynx without lesions, exudates, or excessive erythema. Normal appearance of the external aspects of the nose and ears. Heart:?Regular rhythm, normal rate. No murmur. No lower extremity edema. Lungs:?Normal respiratory effort. Clear to auscultation bilaterally. No wheezes. No crackles. O? saturation 94% on 2L nasal cannula. Abdomen:?Soft. Non-tender. Non-distended. No masses or abdominal hernia. MSK:?No digital cyanosis. Normal strength and tone in all 4 limbs. Skin:?Warm and dry, no rashes. Neuro:?Alert and oriented to person, place, time, and situation. No facial droop or slurred speech. Extraocular movements intact. Sensation intact to soft touch in all 4 limbs. Psych:?Appropriate mood. Full affect. laboratory and microbiology Laboratory Tests 08/29/24 04:46 Test 08/29/24 04:46 Range/Units Serum Glucose 151 H 74-106 mg/dL Problem List/Assessment/Plan Problems(with codes): (1) Lupus cerebritis (2) Sepsis (3) Systemic lupus erythematosus (4) Migraine with status migrainosus (5) Lower back pain Problem List/Assessment/Plan ID Problem List: - Systemic Lupus Erythematosus (SLE) - Concern for meningitis - Urinary retention - Headache - Hypoxia on 2L nasal cannula - Elevated liver function tests - Anemia - Thrombocytosis - Elevated creatinine - Possible sepsis with elevated lactic acid - History of transient ischemic attacks (TIAs) Assessment This is a female patient with a past medical history of systemic lupus erythematosus (diagnosed in 2019) and prior transient ischemic attacks, who presents with severe headache, mild vomiting, and lightheadedness. She restarted her medications in May, including prednisolone, hydrocodone, aspirin, clopidogrel (Plavix), pantoprazole, and atorvastatin. Lumbar puncture revealed a bloody tap with 8,000 WBCs, 2 million RBCs, protein 112 mg/dL, glucose 41 mg/dL, with 76% polymorphonuclear cells and 24% mononuclear cells. CSF PCR was negative for HSV-1 and HSV-2. Preliminary CSF cultures show no bacterial organisms. TB Quantiferon testing has been done. MRI of the brain shows a small linear cortical area of restricted diffusion in the left parietal lobe, possibly related to an acute/subacute infarct. CT head shows no acute intracranial abnormality. She has been afebrile throughout hospitalization, with stable blood pressures and no tachycardia. Oxygen saturation is maintained at 94% on 2L nasal cannula. Laboratory studies show elevated WBC count of 17.3, anemia with hemoglobin of 11.7, thrombocytosis with platelets of 547, and elevated creatinine of 1.83 mg/dL. A Mills catheter was placed on August 24 due to inability to urinate. Urine cultures grew multiple colony types including yeast and mixed gram-positive eugenia. She has been on vancomycin, acyclovir, ceftriaxone, and fluconazole. 2/2: CSF cultures remain negative Plan: - Continue vancomycin and ceftriaxone empirically for sepsis concerns due to elevated lactic acid. - Monitor for signs of infection; if no source identified, consider discontinuing antibiotics in the coming days. - Follow up on sputum cultures; if hypoxia worsens, consider coverage for pneumonia. - Consider testing for tuberculosis and fungal meningitis; cryptococcal meningitis is possible given steroid use. - Follow up on cryptococcal antigen and fungal culture and TB cultures from CSF; if not sent, may need repeat lumbar puncture if symptoms do not improve. - Hold off on initiating amphotericin B until diagnosis of fungal meningitis is confirmed. - Manage urinary retention; continue to monitor renal function and Mills catheter output. Isolation Precautions: Standard Authorized and Performed by: Nori Bernstein Total critical care time: Approximately 76 minutes Due to a high probability of clinically significant, life threatening deterioration, the patient required my highest level of preparedness to intervene emergently and I personally spent this critical care time directly and personally managing the patient. This critical care time included obtaining a history; examining the patient; pulse oximetry; ordering and review of studies; arranging urgent treatment with development of a management plan; evaluation of patient's response to treatment; frequent reassessment; and, discussions with other providers. This critical care time was performed to assess and manage the high probability of imminent, life-threatening deterioration that could result in multi-organ failure. It was exclusive of separately billable procedures and treating other patients and teaching time. Plan discussed with: Other Dietary Evaluation Review Recommendations by RD: Increase Calorie Intake Comments: 1) Increase TPN to meet at least 75% of estimated daily needs d/t 0% PO intake. Current TPN meets ~ 34% estimated daily energy needs and 59% estimated daily protein needs 2) If negligible appetite persists and GI route is preferred, consider Glucerna @ 45 mL/hr goal rate as tolerated. Goal rate will provide 1296 kcals, 65g Pro, and 869 mL free H2O per 24 hrs. TF regimen will meet 86% estimated daily energy needs and 90% estimated daily protein needs 3) Encourage PO intake as appropriate 4) Continue to monitor appetite, labs, and skin integrity Expected Outcomes/Goals: 1) appetite and labs to improve 2) condition to improve NORI BERNSTEIN MD Aug 29, 2024 18:06
--- NOTE | 2024-08-29 18:06 | DVHPN2 ---
Consult Progress Note Date Seen: Aug 29, 2024 Subjective Patient reports: Other (not having anymore delierium or hallucinations , continues to have back pain , nausea is somewhat improved , gets SOb from time to time) Objective vital signs Vital Sign Date Time Temp Pulse Resp B/P (MAP) Pulse Ox O2 Delivery O2 Flow Rate FiO2 08/29/24 16:30 16 94 Room Air* 0 21 08/29/24 14:00 94 08/29/24 12:00 98.1 132/72 (92) 98.1 Total Intake and Output 08/28/24 08/28/24 08/29/24 15:00 23:00 07:00 Intake Total 300 ml 790 ml 340 ml Output Total 2750 ml 1400 ml Balance 300 ml -1960 ml -1060 ml medications Current Medications Medications Dose Ordered Sig/Osiris Route Start Time Stop Time Status Last Admin Dose Admin Acetaminophen 650 mg Q6HP PRN PO 08/21/24 21:30 Nitroglycerin 0.4 mg Q5MINP PRN SL 08/21/24 21:30 Morphine Sulfate 2 mg Q30M PRN IV 08/21/24 21:30 08/21/24 23:59 2 MG Vancomycin HCl 0 ml @ 0 mls/hr UD IV 08/22/24 05:15 Ceftriaxone Sodium/Dextrose 50 ml @ 50 mls/hr Q12HR@09,21 IV 08/22/24 05:15 08/29/24 10:17 50 MLS/HR Acyclovir Sodium 0 ml @ 0 mls/hr PER PHARMACY IV 08/23/24 14:15 Cancel Sodium Chloride 10 ml QSHIFT@10,22 IV 08/25/24 22:00 08/29/24 10:31 10 ML Pantoprazole Sodium 40 mg DAILY IV 08/27/24 10:00 08/29/24 10:19 40 MG Ketorolac Tromethamine 30 mg Q6HPRN PRN IV 08/26/24 15:00 08/31/24 14:59 08/28/24 08:23 30 MG Lorazepam 1 mg ONCE PRN IV 08/26/24 22:00 Ondansetron HCl 4 mg Q4HPRN PRN IV 08/27/24 06:15 08/29/24 11:06 4 MG Metoclopramide HCl 10 mg Q6HR PRN IV 08/27/24 07:45 08/28/24 18:27 10 MG Labetalol HCl 300 mg Q12HR PO 08/27/24 10:00 08/29/24 10:29 300 MG Enteral Nutritional Formula 240 ml TIDWM PO 08/27/24 12:00 08/29/24 12:00 240 ML Nifedipine 60 mg DAILY PO 08/28/24 10:00 08/29/24 10:30 60 MG Morphine Sulfate 2 mg Q6HPRN PRN IV 08/28/24 09:00 08/29/24 08:42 2 MG Acetaminophen/ Hydrocodone Bitart 1 tab Q6HP PRN PO 08/28/24 09:00 08/29/24 17:45 1 TAB Methylprednisolone Sodium Succinate 40 mg BID IV 08/28/24 22:00 08/29/24 10:18 40 MG Aspirin 81 mg DAILY PO 08/30/24 10:00 Clopidogrel Bisulfate 75 mg DAILY PO 08/30/24 10:00 Vancomycin HCl 250 ml @ 250 mls/hr Q8H IV 08/30/24 00:00 Physical Exam: General:?NAD Neck:?Supple. No masses. HEENT:?PERRL. Normal lids and conjunctiva. Moist mucous membranes. Oropharynx without lesions, exudates, or excessive erythema. Normal appearance of the external aspects of the nose and ears. Heart:?Regular rhythm, normal rate. No murmur. No lower extremity edema. Lungs:?Normal respiratory effort. Clear to auscultation bilaterally. No wheezes. No crackles. O? saturation 94% on 2L nasal cannula. Abdomen:?Soft. Non-tender. Non-distended. No masses or abdominal hernia. MSK:?No digital cyanosis. Normal strength and tone in all 4 limbs. Skin:?Warm and dry, no rashes. Neuro:?Alert and oriented to person, place, time, and situation. No facial droop or slurred speech. Extraocular movements intact. Sensation intact to soft touch in all 4 limbs. Psych:?Appropriate mood. Full affect. laboratory and microbiology Laboratory Tests 08/29/24 04:46 Test 08/29/24 04:46 Range/Units Serum Glucose 151 H 74-106 mg/dL Problem List/Assessment/Plan Problems(with codes): (1) Lupus cerebritis (2) Sepsis (3) Systemic lupus erythematosus (4) Migraine with status migrainosus (5) Lower back pain Problem List/Assessment/Plan ID Problem List: - Systemic Lupus Erythematosus (SLE) - Concern for meningitis - Urinary retention - Headache - Hypoxia on 2L nasal cannula - Elevated liver function tests - Anemia - Thrombocytosis - Elevated creatinine - Possible sepsis with elevated lactic acid - History of transient ischemic attacks (TIAs) Assessment This is a female patient with a past medical history of systemic lupus erythematosus (diagnosed in 2019) and prior transient ischemic attacks, who presents with severe headache, mild vomiting, and lightheadedness. She restarted her medications in May, including prednisolone, hydrocodone, aspirin, clopidogrel (Plavix), pantoprazole, and atorvastatin. Lumbar puncture revealed a bloody tap with 8,000 WBCs, 2 million RBCs, protein 112 mg/dL, glucose 41 mg/dL, with 76% polymorphonuclear cells and 24% mononuclear cells. CSF PCR was negative for HSV-1 and HSV-2. Preliminary CSF cultures show no bacterial organisms. TB Quantiferon testing has been done. MRI of the brain shows a small linear cortical area of restricted diffusion in the left parietal lobe, possibly related to an acute/subacute infarct. CT head shows no acute intracranial abnormality. She has been afebrile throughout hospitalization, with stable blood pressures and no tachycardia. Oxygen saturation is maintained at 94% on 2L nasal cannula. Laboratory studies show elevated WBC count of 17.3, anemia with hemoglobin of 11.7, thrombocytosis with platelets of 547, and elevated creatinine of 1.83 mg/dL. A Mills catheter was placed on August 24 due to inability to urinate. Urine cultures grew multiple colony types including yeast and mixed gram-positive eugenia. She has been on vancomycin, acyclovir, ceftriaxone, and fluconazole. 2/2: CSF cultures remain negative 2/3: Chest xray shows left sided cyst likely related to positioning, per Dr Loza patient received reteksan prior to admission and patient immunosuppression appears to be relatively short to suspect a fungal meningitis or a TB meningitis , has few risk factors and exposure to these pathogens 2/4: urine drug screen is only positive for opiates , having some lightheadedness from photophobia . 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 In light of MRI findings unclear if this is an expected sequale of lupus cerebritis , acute infarct of this nature would unlikely be related to infection , cryptococcal , fungal and AFB cultures were unable to be preformed due to extensive homolysis of the samples Plan: -STOP vancomycin - Continue ceftriaxone empirically for sepsis concerns due to elevated lactic acid. - plan to stop all antibiotics in the next 2-3 days as CSF cultures finalize - Monitor for signs of infection; if no source identified, consider discontinuing antibiotics in the coming days. - Follow up on sputum cultures; if hypoxia worsens, consider coverage for pneumonia. - Consider testing for tuberculosis and fungal meningitis; cryptococcal meningitis is possible given steroid use. - Follow up on cryptococcal antigen and fungal culture and TB cultures from CSF; if not sent, may need repeat lumbar puncture if symptoms do not improve. - Hold off on initiating amphotericin B until diagnosis of fungal meningitis is confirmed. - Manage urinary retention; continue to monitor renal function and Mills catheter output. Isolation Precautions: Standard Authorized and Performed by: Nori Bernstein Total critical care time: Approximately 76 minutes Due to a high probability of clinically significant, life threatening deterioration, the patient required my highest level of preparedness to intervene emergently and I personally spent this critical care time directly and personally managing the patient. This critical care time included obtaining a history; examining the patient; pulse oximetry; ordering and review of studies; arranging urgent treatment with development of a management plan; evaluation of patient's response to treatment; frequent reassessment; and, discussions with other providers. This critical care time was performed to assess and manage the high probability of imminent, life-threatening deterioration that could result in multi-organ failure. It was exclusive of separately billable procedures and treating other patients and teaching time. Plan discussed with: Other Dietary Evaluation Review Recommendations by RD: Increase Calorie Intake Comments: 1) Increase TPN to meet at least 75% of estimated daily needs d/t 0% PO intake. Current TPN meets ~ 34% estimated daily energy needs and 59% estimated daily protein needs 2) If negligible appetite persists and GI route is preferred, consider Glucerna @ 45 mL/hr goal rate as tolerated. Goal rate will provide 1296 kcals, 65g Pro, and 869 mL free H2O per 24 hrs. TF regimen will meet 86% estimated daily energy needs and 90% estimated daily protein needs 3) Encourage PO intake as appropriate 4) Continue to monitor appetite, labs, and skin integrity Expected Outcomes/Goals: 1) appetite and labs to improve 2) condition to improve NORI BERNSTEIN MD Aug 29, 2024 18:06
[2024-08-29] MEDS: VANCOMYCIN 1GM/250ML KIT 250 ML IV SCH (23:35)
[2024-08-30] VITALS (32 sets, daily range): BP systolic 110–135; BP diastolic 65–94; PULSE 78–110; RESP 13–21; TEMP 98.2–98.7; O2SAT 93–99
[2024-08-30 08:07] LABS: Complement C3 31 mg/dL (82-167)
[2024-08-30 08:44] LABS: Chloride 101 mmol/L (98-107); Potassium 3.7 mmol/L (3.5-5.1); Sodium 138 mmol/L (136-145)
[2024-08-30 08:45] LABS: Anion Gap 7 (5-15); Carbon Dioxide 30 mmol/L (20-31)
[2024-08-30 08:46] LABS: Calcium 8.5 mg/dL (8.7-10.4)
[2024-08-30 08:51] LABS: BUN/Creatinine Ratio 35.9 (10.0-20.0); Blood Urea Nitrogen 14 mg/dL (9-23)
[2024-08-30 09:04] LABS: Glucose 131 mg/dL (74-106)
--- NOTE | 2024-08-30 09:11 | DVHPN2 ---
Subjective States her back pain has improved. Worsening weakness to left lower extremity Reviewed: Care Plan, H&P, Labs, Medications Changes from previous H/P or p: No Changes General: Per HPI, Chills Eyes: No Pain, No Vision change, No Conjunctivae inflammation, No Eyelid inflammation, No Other, No Redness ENT: No Ear pain, No Ear discharge, No Nose pain, No Nose discharge, No Nose congestion, No Mouth pain, No Mouth swelling, No Throat pain, No Throat swelling, No Other Cardiovascular: Lt Headedness Respiratory: No Cough, No Dry, No Shortness of breath, No SOB with excertion, No Wheezing, No Hemoptysis, No Pleuritic Pain, No Sputum, No Other Gastrointestinal: No Nausea, No Vomiting, No Abdominal Pain, No Diarrhea, No Constipation, No Melena, No Hematochezia, No Other Genitourinary: No Dysuria, No Frequency, No Incontinence, No Hematuria, No Retention, No Other Musculoskeletal: back pain Objective Vitals Vital Signs Date Time Temp Pulse Resp B/P (MAP) Pulse Ox O2 Delivery O2 Flow Rate FiO2 08/30/24 08:23 98 18 126/81 08/30/24 08:00 98.7 95 98.7 08/30/24 06:00 Room Air* 0 21 Intake/Output Intake and Output 08/30/24 07:00 Intake Total 1050 ml Output Total 8100 ml Balance -7050 ml Intake Oral 600 ml IV Total 450 ml Output Urine Total 8100 ml General Appearance: Alert, Oriented X3, Cooperative, moderate distress HEENT: Atraumatic, PERRLA Neck: Carotid Bruits [place] Lungs: Clear to auscultation, Normal air movement Cardiovascular: Normal S1, Normal S2 Abdomen: Soft, No tenderness Musculoskeletal: Normal sensory function, Normal motor function Neuro: Cranial nerves 3-12 NL, Other (Left lower extremity weakness) Skin: Dry, Intact Psych/Mental Status: Mental status NL, Mood NL Medications Current Medications Medications Dose Ordered Sig/Osiris Route Start Time Stop Time Status Last Admin Dose Admin Acetaminophen 650 mg Q6HP PRN PO 08/21/24 21:30 Nitroglycerin 0.4 mg Q5MINP PRN SL 08/21/24 21:30 Morphine Sulfate 2 mg Q30M PRN IV 08/21/24 21:30 08/21/24 23:59 2 MG Vancomycin HCl 0 ml @ 0 mls/hr UD IV 08/22/24 05:15 Ceftriaxone Sodium/Dextrose 50 ml @ 50 mls/hr Q12HR@,21 IV 08/22/24 05:15 08/29/24 21:12 50 MLS/HR Acyclovir Sodium 0 ml @ 0 mls/hr PER PHARMACY IV 08/23/24 14:15 Cancel Sodium Chloride 10 ml QSHIFT@10,22 IV 08/25/24 22:00 08/29/24 21:20 10 ML Pantoprazole Sodium 40 mg DAILY IV 08/27/24 10:00 08/29/24 10:19 40 MG Ketorolac Tromethamine 30 mg Q6HPRN PRN IV 08/26/24 15:00 08/31/24 14:59 08/29/24 23:27 30 MG Lorazepam 1 mg ONCE PRN IV 08/26/24 22:00 Ondansetron HCl 4 mg Q4HPRN PRN IV 08/27/24 06:15 08/29/24 11:06 4 MG Metoclopramide HCl 10 mg Q6HR PRN IV 08/27/24 07:45 08/28/24 18:27 10 MG Labetalol HCl 300 mg Q12HR PO 08/27/24 10:00 08/29/24 21:13 300 MG Enteral Nutritional Formula 240 ml TIDWM PO 08/27/24 12:00 08/29/24 18:26 240 ML Nifedipine 60 mg DAILY PO 08/28/24 10:00 08/29/24 10:30 60 MG Morphine Sulfate 2 mg Q6HPRN PRN IV 08/28/24 09:00 08/30/24 08:23 2 MG Acetaminophen/ Hydrocodone Bitart 1 tab Q6HP PRN PO 08/28/24 09:00 08/30/24 01:53 1 TAB Methylprednisolone Sodium Succinate 40 mg BID IV 08/28/24 22:00 08/29/24 21:12 40 MG Aspirin 81 mg DAILY PO 08/30/24 10:00 Clopidogrel Bisulfate 75 mg DAILY PO 08/30/24 10:00 Vancomycin HCl 250 ml @ 250 mls/hr Q8H IV 08/30/24 00:00 08/30/24 08:30 250 MLS/HR Laboratory Results Laboratory Tests 08/29/24 04:46 08/30/24 07:52 Chemistry Test 08/30/24 07:52 Calcium Level 8.5 mg/dL (8.7-10.4) L Coagulation Test 08/30/24 04:50 Prothrombin Time Diluted Pending Dilute PT Confirmation Ratio Pending Thrombin Time Pending Dilute Ebenezer Viper Venom (Lupus) Pending Lupus Anticoagulant Interpretation Pending Protein C Antigen Pending Protein S Antigen Pending Free Protein S Antigen Pending Anti-Thrombin III Antigen Pending Factor V Leiden Mutation Pending Urinalysis Test 08/21/24 14:32 08/24/24 11:30 Urine Color Light-yellow (Yellow) Urine Clarity Clear (Clear) Urine pH 6.5 (5.0-9.0) Urine Specific Hiram 1.015 (1.001-1.035) Urine Protein 1+ (Negative) H Urine Ketones Negative (Negative) Urine Blood 2+ /uL (Negative) H Urine Nitrite Negative (Negative) Urine Bilirubin Negative (Negative) Urine Urobilinogen Normal mg/dL (Negative) Urine Leukocyte Esterase Negative /uL (Negative) Urine RBC 49 /hpf (0 - 4) Urine Microscopic WBC 4 /HPF (0-5) Urine Squamous Epithelial Cells Few /hpf (<5) Urine Bacteria None seen /hpf (None Seen) Urine Mucus Few (None Seen) Urine Glucose Normal mg/dL (Normal) Urine Test Negative (Negative) Microbiology Microbiology Date/Time Source Procedure Growth Status 08/24/24 15:45 Cerebral Spinal Fluid Gram Stain - Final Resulted 08/24/24 15:45 Cerebral Spinal Fluid CSF Culture & Gram Stain (Tube 2) M - Preliminary Resulted 08/23/24 19:30 Nose MRSA Screen - Final Complete 08/21/24 17:40 Blood Blood Culture - Final NO GROWTH AFTER 5 DAYS OF INCUBATION. 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 Plans for transfer today. Continue current treatment. -antihypertensives: Continue p.o. Procardia and labetalol -pain management: Increase Harrison, add morphine for breakthrough pain -neurology consultation: Recommendations reviewed -rheumatology consultation: Long discussion made with Dr. Lemus cardiac plan of care with this patient during her hospitalization -continue current antimicrobials: Meningitis panel still pending -pancultures: Cultures negative -repeat labs in a.m. Critical care time spent with patient discussing and formulating plan of care: 40 minutes. This does not include time spent performing procedures. This medical document was created using an electronic medical record system with [employer] dictation system. Although this document has been carefully reviewed, there may still be some phonetic and typographical errors. These areas are purely typographical due to imperfections of the software programs, and do not reflect any compromise in the patient's medical care. Plan discussed with: Patient, Other (RN) My Orders Orders - AJ THOMAS NP Procedure Category Date Status Time Aspirin Tablet PHA 08/30/24 In Process 10:00 Clopidogrel Bisulfate PHA 08/30/24 In Process (Plavix) 10:00 Discharge DISCHARGE 08/29/24 Transmitted 17:07 Imaging Transfer ORDERS 08/30/24 Transmitted Request 05:18 Date of Service: Aug 30, 2024 Billing Provider: AJ THOMAS NP Common Visit Codes: [id number] CARE 30-74 MIN AJ THOMAS NP Aug 30, 2024 09:11
--- NOTE | 2024-08-30 09:23 | DVHPN2 ---
Progress Note - Dictate Date Seen: Aug 30, 2024 Has the PT tested + for MRSA If YES, has PT been informed?: No Medical Necessity Reason Pt with a Central, PICC or Fol: No Subjective Ms. Ernandez is a 29 years old right-handed female with a history of lupus, he was brought to the [facility] on 08/21/2024 with a chief company of intense headache. I have seen and examined the patient, discussed with her nurse, she 1s awake, oriented x 3, socially appropriate, she reports doing fine. No new complaints CSF profile, 08/22/2024: Bloody, RBC: 428,311, WBC: 750, mono: 24%, poly: 76%, protein: 2072.4 CSF, 08/24/24: Bloody, RBC: 2,100,000 WBC: 8000, mono: poly: 92, protein: 1411.2, glucose: <4 Lupus anticoagulant aPTT 07/2624: Normal Dilute Ebenezer viper venom 08/23/2024: Normal Antidouble stranded DNA antibody, 07/2624: 73 (0-9) C4, 08/22/2024: 4, C3, 08/22/2024: 39 UDS, 08/21/2024: Opiates, cannabinoids, Plasma alcohol, 08/21/2024: <3 Urinalysis, 08/21/2024: WBC: Four, urine leukocyte esterase: Negative WBC/HB/PLT/MCV, 08/22/2024: 26.7/10.2/571/78.6 ESR, 08/21/2024: 24, 08/22/2024: 25, : 49 CMP, 08/22/2024: Unremarkable CRP, 08/21/2024: 0.68, 08/22/2024: 1.73, 08/23/2019 5:7.11 TSH, 08/21/2024: 0.75 CT head, 08/21/2024: No CT evidence of acute intracranial abnormality MRI head, 08/23/2024: Limited MR study demonstrates a small area of curvilinear cortical restricted diffusion in the left parietal lobe which May relate to an acute to subacute infarct. There is no evidence of hemorrhage. There is no significant mass effect. MRI head, 08/29/2024: Acute to subacute infarct involving the superomedial right frontal and parietal lobes. There is no evidence of acute hemorrhage. There is no significant edema or associated mass effect. MRA head, 08/23/2024: Limited exam as the posterior cranial fossa is not completely imaged. No evidence of hemodynamically significant intracranial stenosis, proximal occlusion, AVM or aneurys vital signs Vital Sign Date Time Temp Pulse Resp B/P (MAP) Pulse Ox O2 Delivery O2 Flow Rate FiO2 08/30/24 08:23 98 18 126/81 08/30/24 08:00 98.7 95 98.7 08/30/24 06:00 Room Air* 0 21 Total Intake and Output 08/29/24 08/29/24 08/30/24 14:59 22:59 06:59 Intake Total 150 ml 50 ml 850 ml Output Total 1500 ml 3100 ml 3500 ml Balance -1350 ml -3050 ml -2650 ml medications Current Medications Medications Dose Ordered Sig/Osiris Route Start Time Stop Time Status Last Admin Dose Admin Acetaminophen 650 mg Q6HP PRN PO 08/21/24 21:30 Nitroglycerin 0.4 mg Q5MINP PRN SL 08/21/24 21:30 Morphine Sulfate 2 mg Q30M PRN IV 08/21/24 21:30 08/21/24 23:59 2 MG Vancomycin HCl 0 ml @ 0 mls/hr UD IV 08/22/24 05:15 Ceftriaxone Sodium/Dextrose 50 ml @ 50 mls/hr Q12HR@09,21 IV 08/22/24 05:15 08/29/24 21:12 50 MLS/HR Acyclovir Sodium 0 ml @ 0 mls/hr PER PHARMACY IV 08/23/24 14:15 Cancel Sodium Chloride 10 ml QSHIFT@10,22 IV 08/25/24 22:00 08/29/24 21:20 10 ML Pantoprazole Sodium 40 mg DAILY IV 08/27/24 10:00 08/29/24 10:19 40 MG Ketorolac Tromethamine 30 mg Q6HPRN PRN IV 08/26/24 15:00 08/31/24 14:59 08/29/24 23:27 30 MG Lorazepam 1 mg ONCE PRN IV 08/26/24 22:00 Ondansetron HCl 4 mg Q4HPRN PRN IV 08/27/24 06:15 08/29/24 11:06 4 MG Metoclopramide HCl 10 mg Q6HR PRN IV 08/27/24 07:45 08/28/24 18:27 10 MG Labetalol HCl 300 mg Q12HR PO 08/27/24 10:00 08/29/24 21:13 300 MG Enteral Nutritional Formula 240 ml TIDWM PO 08/27/24 12:00 08/29/24 18:26 240 ML Nifedipine 60 mg DAILY PO 08/28/24 10:00 08/29/24 10:30 60 MG Morphine Sulfate 2 mg Q6HPRN PRN IV 08/28/24 09:00 08/30/24 08:23 2 MG Acetaminophen/ Hydrocodone Bitart 1 tab Q6HP PRN PO 08/28/24 09:00 08/30/24 01:53 1 TAB Methylprednisolone Sodium Succinate 40 mg BID IV 08/28/24 22:00 08/29/24 21:12 40 MG Aspirin 81 mg DAILY PO 08/30/24 10:00 Clopidogrel Bisulfate 75 mg DAILY PO 08/30/24 10:00 Vancomycin HCl 250 ml @ 250 mls/hr Q8H IV 08/30/24 00:00 08/30/24 08:30 250 MLS/HR objective General: the patient is well developed and nourished. No acute distress. MENTAL STATUS: Subjective SPEECH, LANGUAGE, HIGHER CORTICAL FUNCTION: no aphasia or dysathria. CRANIAL NERVES: Pupils are equal, round and reactive. EOMs full and conjugate. Facial sensation intact in all three divisions bilaterally. Mandibular strength intact. Facial muscles symmetrical and strength intact. SENSATION: Sensation to touch and pinprick is normal MOTOR: Normal tone in the upper and lower extremity. Normal muscle bulk. No fasciculations. She was weakness in the left extremities, Arm: 3-4/5, Le- 2/5 REFLEXES: Deep tendon reflexes are symmetrical. No pathological reflexes. CEREBELLAR/COORDINATION: Deferred GAIT/STATION: deferred laboratory and microbiology Laboratory Tests 08/30/24 07:52 08/29/24 04:46 Test 08/30/24 07:52 Range/Units Serum Glucose 131 H 74-106 mg/dL Problem List Acute headache with abnormal CSF profile Lupus encephalitis ? Meningitis, ? Bacterial meningitis ? SAH ? 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 Although this document has been carefully reviewed, there may still be some phonetic and typographical errors. These areas are purely typographical due to imperfections of the software programs, and do not reflect any compromise in the patient's medical care. Prognosis poor Dietary Evaluation Review Recommendations by RD: Increase Calorie Intake Comments: 1) Increase TPN to meet at least 75% of estimated daily needs d/t 0% PO intake. Current TPN meets ~ 34% estimated daily energy needs and 59% estimated daily protein needs 2) If negligible appetite persists and GI route is preferred, consider Glucerna @ 45 mL/hr goal rate as tolerated. Goal rate will provide 1296 kcals, 65g Pro, and 869 mL free H2O per 24 hrs. TF regimen will meet 86% estimated daily energy needs and 90% estimated daily protein needs 3) Encourage PO intake as appropriate 4) Continue to monitor appetite, labs, and skin integrity Expected Outcomes/Goals: 1) appetite and labs to improve 2) condition to improve Plan discussed with: Patient, Other PHILIP WELLS MD Aug 30, 2024 09:23
[2024-08-30 10:24] LABS: LDL Cholesterol 49 mg/dL (< 100); Triglycerides 122 mg/dL (< 150)
[2024-08-30 10:25] LABS: Cholesterol 125 mg/dL (< 200); HDL Cholesterol 50 mg/dL (40-59)
[2024-08-30] MEDS: ASPirin 81 mg TAB PO SCH (10:34)
[2024-08-30] MEDS: CLOPIDOGREL BISULFATE 75 MG TAB PO SCH (10:35)
[2024-08-30 11:07] LABS: Anti-dsDNA Antibody 31 IU/mL (0-9)
[2024-08-30] MEDS: MORPHINE SULFATE INJ 2 MG/ml SYRG IV ONE (12:30)
--- NOTE | 2024-08-30 21:47 | DVHPN2 ---
Consult Progress Note Date Seen: Aug 30, 2024 Subjective Patient reports: Feels better (no fever or chills, ongoing back pain and nausea) Objective vital signs Vital Sign Date Time Temp Pulse Resp B/P (MAP) Pulse Ox O2 Delivery O2 Flow Rate FiO2 08/30/24 12:30 96 18 135/72 08/30/24 12:00 96 Room Air* 0 21 08/30/24 08:00 98.7 98.7 Total Intake and Output 08/29/24 08/29/24 08/30/24 15:00 23:00 07:00 Intake Total 150 ml 50 ml 850 ml Output Total 1500 ml 3100 ml 3500 ml Balance -1350 ml -3050 ml -2650 ml medications Current Medications Medications Dose Ordered Sig/Osiris Route Start Time Stop Time Status Last Admin Dose Admin Acyclovir Sodium 0 ml @ 0 mls/hr PER PHARMACY IV 08/23/24 14:15 Cancel PHYSICAL EXAM: - GENERAL: Alert and oriented x 3. No acute distress. Well-nourished. ? - EYES: EOMI. Anicteric. ?- HENT: Moist mucous membranes. No scleral icterus. No cervical lymphadenopathy. ?- LUNGS: Clear to auscultation bilaterally. No accessory muscle use.? - CARDIOVASCULAR: Regular rate and rhythm. No murmur. No JVD.? - ABDOMEN: Soft, non-tender and non-distended. No palpable masses.? - EXTREMITIES: No edema. Non-tender.?SKIN: No rashes or lesions. Warm. ? - NEUROLOGIC: No focal neurological deficits. CN II-XII grossly intact, but not individually tested.? - PSYCHIATRIC: Cooperative. Appropriate mood and affect. laboratory and microbiology Laboratory Tests 08/30/24 07:52 08/29/24 04:46 Test 08/30/24 07:52 Range/Units Serum Glucose 131 H 74-106 mg/dL Problem List/Assessment/Plan Problem List/Assessment/Plan ID Problem List: - Systemic Lupus Erythematosus (SLE) - Concern for meningitis - Urinary retention - Headache - Hypoxia on 2L nasal cannula - Elevated liver function tests - Anemia - Thrombocytosis - Elevated creatinine - Possible sepsis with elevated lactic acid - History of transient ischemic attacks (TIAs) Assessment This is a female patient with a past medical history of systemic lupus erythematosus (diagnosed in 2019) and prior transient ischemic attacks, who presents with severe headache, mild vomiting, and lightheadedness. She restarted her medications in May, including prednisolone, hydrocodone, aspirin, clopidogrel (Plavix), pantoprazole, and atorvastatin. Lumbar puncture revealed a bloody tap with 8,000 WBCs, 2 million RBCs, protein 112 mg/dL, glucose 41 mg/dL, with 76% polymorphonuclear cells and 24% mononuclear cells. CSF PCR was negative for HSV-1 and HSV-2. Preliminary CSF cultures show no bacterial organisms. TB Quantiferon testing has been done. MRI of the brain shows a small linear cortical area of restricted diffusion in the left parietal lobe, possibly related to an acute/subacute infarct. CT head shows no acute intracranial abnormality. She has been afebrile throughout hospitalization, with stable blood pressures and no tachycardia. Oxygen saturation is maintained at 94% on 2L nasal cannula. Laboratory studies show elevated WBC count of 17.3, anemia with hemoglobin of 11.7, thrombocytosis with platelets of 547, and elevated creatinine of 1.83 mg/dL. A Mills catheter was placed on August 24 due to inability to urinate. Urine cultures grew multiple colony types including yeast and mixed gram-positive eugenia. She has been on vancomycin, acyclovir, ceftriaxone, and fluconazole. 2/2: CSF cultures remain negative 2/3: Chest xray shows left sided cyst likely related to positioning, per Dr Loza patient received reteksan prior to admission and patient immunosuppression appears to be relatively short to suspect a fungal meningitis or a TB meningitis , has few risk factors and exposure to these pathogens 2/4: urine drug screen is only positive for opiates , having some lightheadedness from photophobia . 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 In light of MRI findings unclear if this is an expected sequale of lupus cerebritis , acute infarct of this nature would unlikely be related to infection , cryptococcal , fungal and AFB cultures were unable to be preformed due to extensive homolysis of the samples Plan: - Continue ceftriaxone empirically for sepsis concerns due to elevated lactic acid. - plan to stop all antibiotics in the next 2-3 days as CSF cultures finalize - Monitor for signs of infection; if no source identified, consider discontinuing antibiotics in the coming days. - Follow up on sputum cultures; if hypoxia worsens, consider coverage for pneumonia. - Consider testing for tuberculosis and fungal meningitis; cryptococcal meningitis is possible given steroid use. - Follow up on cryptococcal antigen and fungal culture and TB cultures from CSF; if not sent, may need repeat lumbar puncture if symptoms do not improve. - Hold off on initiating amphotericin B until diagnosis of fungal meningitis is confirmed. - Manage urinary retention; continue to monitor renal function and Mills catheter output. Isolation Precautions: Standard Authorized and Performed by: Nori Bernstein Total critical care time: Approximately 46 minutes Due to a high probability of clinically significant, life threatening deterioration, the patient required my highest level of preparedness to intervene emergently and I personally spent this critical care time directly and personally managing the patient. This critical care time included obtaining a history; examining the patient; pulse oximetry; ordering and review of studies; arranging urgent treatment with development of a management plan; evaluation of patient's response to treatment; frequent reassessment; and, discussions with other providers. This critical care time was performed to assess and manage the high probability of imminent, life-threatening deterioration that could result in multi-organ failure. It was exclusive of separately billable procedures and treating other patients and teaching time. Plan discussed with: Patient Dietary Evaluation Review Recommendations by RD: Increase Calorie Intake Comments: 1) Increase TPN to meet at least 75% of estimated daily needs d/t 0% PO intake. Current TPN meets ~ 34% estimated daily energy needs and 59% estimated daily protein needs 2) If negligible appetite persists and GI route is preferred, consider Glucerna @ 45 mL/hr goal rate as tolerated. Goal rate will provide 1296 kcals, 65g Pro, and 869 mL free H2O per 24 hrs. TF regimen will meet 86% estimated daily energy needs and 90% estimated daily protein needs 3) Encourage PO intake as appropriate 4) Continue to monitor appetite, labs, and skin integrity Expected Outcomes/Goals: 1) appetite and labs to improve 2) condition to improve NORI BERNSTEIN MD Aug 30, 2024 21:47
[2024-08-31 12:06] LABS: QuantiFERON-TB Gold Plus Indeterminate (Negative)
[2024-09-01 20:06] LABS: Antithrombin III Antigen 104 % (72-124); Dilute Prothrombin Time(dPT) 39.1 sec (0.0-47.6); PTT-LA 27.3 sec (0.0-43.5); Protein S Antigen Free 72 % (61-136); Proten S Antigen Total 54 % (60-150); Thrombin Time 22.8 sec (0.0-23.0); dPT Confirm Ratio 1.25 Ratio (0.00-1.34); dRVVT 32.5 sec (0.0-47.0)
[2024-09-01 22:06] LABS: Anticardiolipin IgG Antibody <9 GPL U/mL (0-14); Anticardiolipin IgM Antibody 10 MPL U/mL (0-12); Lupus Interpretation Comment: (.); Protein C Antigen 149 % (60-150)
== END 2024-08-30 12:30 | disposition short-term general hospital (02) | DRG 720 ==
LOC: ER 12:30 → OVERFLOW 21:19 → ICU WEST 08-23 19:04 → DOU IN ICU 08-28 22:20
PROVIDERS: ADMIT Nurse Practitioner Acute Care; ATTEND Nurse Practitioner Acute Care
PROC: 009U3ZX Drainage of Spinal Canal, Percutaneous Approach, Diagnostic (ICD-10-PCS; 2024-08-24)
PROC: B01B1ZZ Fluoroscopy of Spinal Cord using Low Osmolar Contrast (ICD-10-PCS; 2024-08-24)
PROC: 05HY33Z Insertion of Infusion Device into Upper Vein, Percutaneous Approach (ICD-10-PCS; principal; 2024-08-25)
PROC: B54NZZA Ultrasonography of Left Upper Extremity Veins, Guidance (ICD-10-PCS; 2024-08-25)
DX: A41.9 Sepsis, unspecified organism (principal); I63.9 Cerebral infarction, unspecified; J96.01 Acute respiratory failure with hypoxia; G92.8 Other toxic encephalopathy; G05.3 Encephalitis and encephalomyelitis in diseases classified elsewhere; E87.20 Acidosis, unspecified; M32.19 Other organ or system involvement in systemic lupus erythematosus; D75.89 Other specified diseases of blood and blood-forming organs; E11.9 Type 2 diabetes mellitus without complications; N39.0 Urinary tract infection, site not specified; G43.111 Migraine with aura, intractable, with status migrainosus; I16.9 Hypertensive crisis, unspecified; F12.129 Cannabis abuse with intoxication, unspecified; B00.9 Herpesviral infection, unspecified; G81.94 Hemiplegia, unspecified affecting left nondominant side; E87.6 Hypokalemia; D75.839 Thrombocytosis, unspecified; Z79.82 Long term (current) use of aspirin; Z99.81 Dependence on supplemental oxygen; Z86.73 Personal history of transient ischemic attack (TIA), and cerebral infarction without residual deficits; Z82.49 Family history of ischemic heart disease and other diseases of the circulatory system; Z79.899 Other long term (current) drug therapy
CPT/HCPCS: 36415; 36569; 36600; 62272; 70450; 70545; 70551; 70553; 71045; 74018; 76775; 76801; 76937; 80048; 80053; 80061; 80197; 80202; 80307; 80320; 81001; 81025; 81241; 82140; 82550; 82565; 82805; 82945; 82962; 83516; 83605; 83735; 84100; 84157; 84443; 84478; 84702; 85007; 85025; 85027; 85301; 85302; 85305; 85306; 85610; 85613; 85652; 85670; 85705; 85730; 85732; 86141; 86147; 86160; 86225; 86235; 86803; 87040; 87070; 87081; 87086; 87205; 87426; 87529; 87804; 87899; 89051; 93005; 96365; 96372; 96375; 97110; 97163; 97530; 99152; 99291; G0378; J0692; J1100; J1450; J1885; J2003; J2250; J2405; J2470; J3480; J3490; J7060